=== PATIENT | female | born 1935 | race Two or more races ===

== ENCOUNTER → 2016-08-09 | Outpatient (CLI) | payer MEDICARE, OTHER ==
--- NOTE | 2016-08-09 11:04 | WOMENS IMAGING REPORT ---
EXAM DESCRIPTION: U/S ABDOMEN TOTAL COMPLETED DATE/TIME: 08/09/2016 10:30 am REASON FOR STUDY: OTHER ASCITES (R18.8) R18.8 OTHER ASCITES COMPARISON: 12/01/2010. TECHNIQUE: Dynamic and static grayscale images acquired of the abdomen and recorded on PACS. Additio nal selected color Doppler and spectral images recorded. LIMITATIONS: None. FINDINGS: PANCREAS: No masses. Visualized pancreatic duct normal caliber. LIVER: Echotexture is coarse with increased echogenicity consistent with fatty infiltration. LIVER VASCULATURE: Back and forth flow in the portal vein. GALLBLADDER: Gallstone(s). No pericholecystic fluid. Contracted gallbladder with gallbladder wall th ickening. ULTRASOUND-DETECTED GAXIOLA'S SIGN: Positive. INTRAHEPATIC DUCTS AND COMMON DUCT: CBD and intrahepatic ducts normal caliber. No filling defects. INFERIOR VENA CAVA: Normal flow. AORTA: No aneurysm. RIGHT KIDNEY: Normal size. Normal echogenicity. 1.2 cm cyst. No solid or suspicious masses. N o hydronephrosis. No calcifications. LEFT KIDNEY: Normal size. Normal echogenicity. No solid or suspicious masses. No hydronephrosi s. No calcifications. SPLEEN:Normal size. No solid masses. PERITONEAL AND PLEURAL SPACES: No ascites or effusions. OTHER: No other significant finding. TECHNICAL DOCUMENTATION: JOB ID: [id number] [employer]- All Rights Reserved
== END ==
LOC: WI 09:48
PROVIDERS: ATTEND Internal Medicine Nephrology
DX: R18.8 Other ascites (principal)
CPT/HCPCS: 76700

== ENCOUNTER → 2016-11-02 | Outpatient (CLI) | payer MEDICARE, OTHER ==
[2016-11-02 10:18] LABS: ANION GAP 16 (5-19); BLOOD UREA NITROGEN 91 mg/dL (7-20); CALCIUM 9.8 mg/dL (8.4-10.2); CARBON DIOXIDE 26 mmol/L (22-30); CHLORIDE 99 mmol/L (98-107); CREATININE RESULT 3.36 mg/dL (0.52-1.25); GLUCOSE 94 mg/dL (75-110); POTASSIUM 4.9 mmol/L (3.6-5.0); SODIUM 140.6 mmol/L (137-145)
== END ==
LOC: DAVITANR 09:20
PROVIDERS: ATTEND Internal Medicine Nephrology
DX: E87.5 Hyperkalemia (principal); N18.6 End stage renal disease
CPT/HCPCS: 80048

== ENCOUNTER → 2016-11-05 | Outpatient (CLI) | payer MEDICARE, OTHER ==
[2016-11-05 10:38] LABS: ANION GAP 18 (5-19); BLOOD UREA NITROGEN 118 mg/dL (7-20); CALCIUM 9.7 mg/dL (8.4-10.2); CARBON DIOXIDE 25 mmol/L (22-30); CHLORIDE 97 mmol/L (98-107); CREATININE RESULT 3.37 mg/dL (0.52-1.25); GLUCOSE 90 mg/dL (75-110); POTASSIUM 4.6 mmol/L (3.6-5.0); SODIUM 140.1 mmol/L (137-145)
== END ==
LOC: DAVITANR 09:37
PROVIDERS: ATTEND Internal Medicine Nephrology
DX: E87.5 Hyperkalemia (principal)
CPT/HCPCS: 80048

== ENCOUNTER → 2016-12-17 | Outpatient (CLI) | payer MEDICARE, OTHER ==
[2016-12-17 12:03] LABS: CHOLESTEROL 131.92 mg/dL (0-200); Direct HDL 62 mg/dL (>40); TRIGLYCERIDES 93 mg/dL (<150)
[2016-12-17 12:19] LABS: FREE T3 3.6 pg/mL (2.77-5.27)
[2016-12-17 12:20] LABS: DIRECT LDL < 30 mg/dL (<100)
[2016-12-17 12:33] LABS: THYROID STIMULATING HORMONE 3.93 uIU/mL (0.47-4.68)
== END ==
LOC: OD 11:02
PROVIDERS: ATTEND Internal Medicine Geriatric Medicine
DX: E11.65 Type 2 diabetes mellitus with hyperglycemia (principal)
CPT/HCPCS: 36415; 80061; 84439; 84443; 84481

== ENCOUNTER → 2017-02-25 | Outpatient (CLI) | payer MEDICARE, OTHER ==
[2017-02-25 11:27] LABS: ALANINE AMINOTRANSFERASE 34 U/L (9-52); ALBUMIN 3.9 g/dL (3.5-5.0); ALKALINE PHOSPHATASE 65 U/L (38-126); ANION GAP 13 (5-19); ASPARTATE AMINO TRANSFERASE 38 U/L (14-36); BILIRUBIN,DIRECT 0.4 mg/dL (0.0-0.4); BILIRUBIN,TOTAL 1.1 mg/dL (0.2-1.3); BLOOD UREA NITROGEN 114 mg/dL (7-20); CALCIUM 9.6 mg/dL (8.4-10.2); CARBON DIOXIDE 29 mmol/L (22-30); CHLORIDE 99 mmol/L (98-107); GLUCOSE 104 mg/dL (75-110); POTASSIUM 3.5 mmol/L (3.6-5.0); SODIUM 140.9 mmol/L (137-145); TOTAL PROTEIN 7.4 g/dL (6.3-8.2)
== END ==
LOC: OD 09:57
PROVIDERS: ATTEND Internal Medicine Geriatric Medicine
DX: N18.4 Chronic kidney disease, stage 4 (severe) (principal)
CPT/HCPCS: 36415; 80053

== ENCOUNTER 2017-03-27 15:44 | Emergency (ER) | payer MEDICARE, OTHER ==
--- NOTE | 2017-03-27 16:58 | RADIOLOGY REPORT (SQ) ---
EXAM DESCRIPTION: CHEST SINGLE VIEW COMPLETED DATE/TIME: 03/27/2017 4:44 pm REASON FOR STUDY: left chest swelling/sob COMPARISON: AP chest 11/20/2011, 07/06/2009 EXAM PARAMETERS: NUMBER OF VIEWS: One view. TECHNIQUE: Single frontal radiographic view of the chest acquired. RADIATION DOSE: NA LIMITATIONS: None. FINDINGS: LUNGS AND PLEURA: No opacities, masses or pneumothorax. No pleural effusion. MEDIASTINUM AND HILAR STRUCTURES: No masses. Contour normal. HEART AND VASCULAR STRUCTURES: Stable marked cardiomegaly BONES: No acute findings. HARDWARE: Old sternotomy and left sided pacemaker. Surgical clips left axilla. OTHER: No other significant finding. IMPRESSION: Stable cardiomegaly. No CT evidence of acute infiltrates, pleural effusion or pneumothorax TECHNICAL DOCUMENTATION: JOB ID: [id number]
[2017-03-27] MEDS ORDERED: ONDANSETRON HCL INJ/PF 4 MG/2 ML SDV IV ONE (17:14)
--- NOTE | 2017-03-27 17:14 | ER Document Report ---
ED General - General Mode of Arrival: Ambulatory Information source: Patient, Relative TRAVEL OUTSIDE OF THE [place]. IN LAST 30 DAYS: No - HPI Onset: Yesterday Onset/Duration: Gradual Quality of pain: Fullness, Pressure <ALEJANDRINA LINCOLN - Last Filed: 03/27/17 17:21> <KO NGUYEN - Last Filed: 03/27/17 22:38> - General Chief Complaint: Post Surgical Bleeding Stated Complaint: REDNESS, SWELLING AT SURGERY SITE Time Seen by Provider: 03/27/17 16:33 Notes: Patient is an 82-year-old female who presents to the emergency department today with complaints of left upper chest and left upper extremity swelling. Patient had the batteries in her pacemaker/defibrillator changed yesterday and the swelling began shortly after and has continued into today. Patient complains of left upper extremity pain today with the obvious swelling. (ALEJANDRINA LINCOLN) - Related Data Allergies/Adverse Reactions: clindamycin [Clindamycin] Allergy (Verified 03/27/17 16:25) codeine [Codeine] Allergy (Verified 03/27/17 16:25) diltiazem HCl [From Cardizem] Allergy (Verified 03/27/17 16:25) Penicillins Allergy (Verified 03/27/17 16:25) Sulfa (Sulfonamide Antibiotics) Allergy (Verified 03/27/17 16:25) Past Medical History - General Information source: Patient, Relative - Social History Smoking Status: Former Smoker Frequency of alcohol use: None Drug Abuse: None Lives with: Family Family History: Reviewed & Not Pertinent Patient has suicidal ideation: No Patient has homicidal ideation: No - Past Medical History Cardiac Medical History: Reports: Hx Atrial Fibrillation, Hx Congestive Heart Failure, Hx Heart Attack - 1994, Hx Hypercholesterolemia, Hx Hypertension - MEDS Pulmonary Medical History: Reports: Hx Asthma - LAST ATTACK 3MO Endocrine Medical History: Reports: Hx Diabetes Mellitus Type 2 Renal/ Medical History: Reports: Hx Peritoneal Dialysis GI Medical History: Reports: Hx Hiatal Hernia, Hx Ulcer - STOMACH Musculoskeltal Medical History: Reports Hx Arthritis Past Surgical History: Reports: Hx Cardiac Surgery - bypass, pacemaker/ defibulator, Hx Hysterectomy, Hx Open Heart Surgery - bypass 1994, Hx Pacemaker - Immunizations Hx Diphtheria, Pertussis, Tetanus Vaccination: Yes <ALEJANDRINA LINCOLN - Last Filed: 03/27/17 17:21> Review of Systems - Review of Systems Constitutional: No symptoms reported EENT: No symptoms reported Cardiovascular: No symptoms reported Respiratory: No symptoms reported Gastrointestinal: No symptoms reported Genitourinary: No symptoms reported Female Genitourinary: No symptoms reported Musculoskeletal: See HPI, Other - left arm and upper chest swelling, post surgical Skin: No symptoms reported Hematologic/Lymphatic: No symptoms reported Neurological/Psychological: No symptoms reported -: Yes All other systems reviewed and negative <ALEJANDRINA LINCOLN - Last Filed: 03/27/17 17:21> Physical Exam <ALEJANDRINA LINCOLN - Last Filed: 03/27/17 17:21> <KO NGUYEN - Last Filed: 03/27/17 22:38> - Vital signs Vitals: Temp Pulse Resp BP Pulse Ox 98.3 F 70 16 121/66 99 03/27/17 16:23 03/27/17 16:23 03/27/17 16:23 03/27/17 16:23 03/27/17 16:23 - Notes Notes: Physical Exam: General: Alert, appears well. HEENT: Normocephalic. Atraumatic. PERRL. Extraocular movements intact. Oropharynx clear. Neck: Supple. Non-tender. Respiratory: No respiratory distress. Clear and equal breath sounds bilaterally. Cardiovascular: Regular rate and rhythm. Abdominal: Normal Inspection. Non-tender. No distension. Normal Bowel Sounds. Back: Non-tender. No deformity or step off. Extremities: Moves all four extremities. Upper extremities: LUE is edematous but no there is no acute tenderness with palpation. Lower extremities: Normal inspection. No edema. Normal ROM. Neurological: Normal cognition. AAOx4. Normal speech. Psychological: Normal affect. Normal Mood. Skin: Fresh sutured incision, bulging upward 3cm above normal, tender with palpation in left upper chest. (ALEJANDRINA LINCOLN) Course - Laboratory Result Diagrams: 03/27/17 17:45 03/27/17 17:45 - Consults Dr. Amaya Consulted provider: follow-up in office - Dr. Amaya is the learning designer raymond mill operator for Dr. Hammer who did the procedure yesterday. He requests the patient come to the office tomorrow for follow-up and continue her Coumadin. <KO NGUYEN - Last Filed: 03/27/17 22:38> - Vital Signs Vital signs: Temp Pulse Resp BP Pulse Ox 98.3 F 70 28 H 112/70 96 03/27/17 16:23 03/27/17 16:23 03/27/17 22:16 03/27/17 22:01 03/27/17 22:16 - Laboratory Laboratory results interpreted by me: 03/27/17 03/27/17 03/27/17 17:45 17:45 17:45 RBC 3.19 L Hgb 11.4 L Hct 33.1 L MCV 104 H MCH 35.8 H Plt Count 80 L Monocytes % 17.9 H PT 19.5 H Sodium 135.6 L Chloride 96 L BUN 117 H Creatinine 3.41 H Est GFR ( Amer) 16 L Est GFR (Non-Af Amer) 13 L Glucose 145 H Direct Bilirubin 0.6 H Discharge <ALEJANDRINA LINCOLN - Last Filed: 03/27/17 17:21> <KO NGUYEN - Last Filed: 03/27/17 22:38> - Discharge Clinical Impression: Left upper extremity swelling Chest wall hematoma Qualifiers: Encounter type: initial encounter Laterality: left Qualified Code(s): S20.212A - Contusion of left front wall of thorax, initial encounter Condition: Stable Disposition: HOME, SELF-CARE Additional Instructions: There was no evidence of blood clots causing your arm swelling. The swelling of your pacemaker is probably due to bleeding around the pacemaker after the procedure. I discussed your case with Dr. Amaya who is covering for Dr. Harman flores. He requests that you continue taking your Coumadin and come to the office tomorrow for a follow-up appointment. Scribe Attestation: 03/27/17 22:38 I personally performed the services described in the documentation, reviewed and edited the documentation which was dictated to the scribe in my presence, and it accurately records my words and actions. (KO NGYUEN) Scribe Documentation - Scribe Written by Scribe:: Celeste Ng, 03/27/2017 [id number] acting as scribe for :: Jesus <ALEJANDRINA LINCOLN - Last Filed: 03/27/17 17:21>
[2017-03-27] MEDS ORDERED: FENTANYL CITRATE INJ/PF 100 MCG/2 ML AMPUL IV ONE ×2 (17:15→19:38)
[2017-03-27 18:24] LABS: PROTHROMBIN TIME 19.5 SEC (11.4-15.4)
[2017-03-27 18:31] LABS: ALANINE AMINOTRANSFERASE 19 U/L (9-52); ALBUMIN 3.8 g/dL (3.5-5.0); ALKALINE PHOSPHATASE 58 U/L (38-126); ANION GAP 14 (5-19); ASPARTATE AMINO TRANSFERASE 30 U/L (14-36); BILIRUBIN,DIRECT 0.6 mg/dL (0.0-0.4); CALCIUM 9.3 mg/dL (8.4-10.2); CARBON DIOXIDE 26 mmol/L (22-30); CHLORIDE 96 mmol/L (98-107); CREATININE RESULT 3.41 mg/dL (0.52-1.25); GLUCOSE 145 mg/dL (75-110); SODIUM 135.6 mmol/L (137-145); TOTAL PROTEIN 7.2 g/dL (6.3-8.2)
[2017-03-27 18:32] LABS: ABSOLUTE EOSINOPHILS # (AUTO) 0.1 10^3/uL (0.0-0.6); ABSOLUTE LYMPHOCYTES (AUTO) 1.1 10^3/uL (0.5-4.7); ABSOLUTE NEUT (AUTO) 3.3 10^3/uL (1.7-8.2); BASOPHILS % (AUTO) 0.9 % (0-2); EOSINOPHILS % (AUTO) 1.2 % (0-6); HEMATOCRIT 33.1 % (36.0-47.0); HEMOGLOBIN 11.4 g/dL (12.0-15.5); HGB HCT DIFFERENCE 1.1; LYMPHOCYTES % (AUTO) 19.5 % (13-45); MEAN CORPUSCULAR HEMOGLOBIN 35.8 pg (27.0-33.4); MEAN CORPUSCULAR HGB CONC 34.5 g/dL (32.0-36.0); MEAN CORPUSCULAR VOLUME 104 fl (80-97); MONOCYTES % (AUTO) 17.9 % (3-13); RED BLOOD COUNT 3.19 10^6/uL (3.72-5.28); RED CELL DISTRIBUTION WIDTH 12.1 % (11.5-14.0); SEGMENTED NEUTROPHILS % (AUTO) 60.5 % (42-78); WHITE BLOOD COUNT 5.4 10^3/uL (4.0-10.5)
[2017-03-27 18:38] LABS: BLOOD UREA NITROGEN 117 mg/dL (7-20)
[2017-03-27] MEDS ORDERED: FENTANYL 12 MCG/HR PATCH.TD72 TD ONE (23:12)
[2017-03-27 23:34] VITALS: BP 122/71
--- NOTE | 2017-03-28 10:47 | XCELERA REPORT ---
[address] [address] Upper Extremity Venous Evaluation Name: NANCY BIRMINGHAM Age: 82 yrs Gender: Female : 1935 Patient Status: Emergency Patient Location: ER Study Date: 03/27/2017 09:47 PM Procedure: Unilateral duplex scan of the left upper extremity veins was performed, including responses to compression and other maneuvers. Reason For Study: L arm swelling,coumadin held for pacemaker connor ch Ordering Physician: KO NGUYEN Performed By: William Portillo Left Sided Venous Evaluation Normal vessel filling wall to wall, compression and augmentation as well as Colour flow down to the forearm veins. Interpretation Summary No duplex evidence of DVT or obstruction in the left upper extremity. : KO NGUYEN > Tim Cummings
== END 2017-03-27 23:30 | disposition home or self-care (01) ==
LOC: ER 15:44
DX: S20.212A Contusion of left front wall of thorax, initial encounter (principal); R22.32 Localized swelling, mass and lump, left upper limb; X58.XXXA Exposure to other specified factors, initial encounter; I48.91 Unspecified atrial fibrillation; I50.9 Heart failure, unspecified; E78.00 Pure hypercholesterolemia, unspecified; I11.0 Hypertensive heart disease with heart failure; J45.909 Unspecified asthma, uncomplicated; E11.9 Type 2 diabetes mellitus without complications; Z88.3 Allergy status to other anti-infective agents; Z88.2 Allergy status to sulfonamides; Z88.0 Allergy status to penicillin; Z95.810 Presence of automatic (implantable) cardiac defibrillator; Z87.891 Personal history of nicotine dependence; Z90.710 Acquired absence of both cervix and uterus; Z79.02 Long term (current) use of antithrombotics/antiplatelets; I25.2 Old myocardial infarction
CPT/HCPCS: 96376; 99284; 96374; 96375; 36415; 85025; 85610; 80053; 93971 ×2; 71010; J3010; A9270; J2405; J3490

== ENCOUNTER 2018-01-10 09:53 | Outpatient (CLI) | payer MEDICARE, OTHER ==
[2018-01-10 10:54] LABS: INTERNATIONAL RATION (INR) 1.35; PROTHROMBIN TIME 17.4 SEC (11.4-15.4)
[2018-01-10] MEDS ORDERED: NORMAL SALINE IV PRN (11:48)
[2018-01-10] MEDS ORDERED: SODIUM THIOSULFATE IV PRN (11:48)
[2018-01-10] MEDS ORDERED: NORMAL SALINE 10 ML SDV (AFTER EACH USE) IV PRN (11:54)
[2018-01-10 12:00] VITALS: BP 142/51
[2018-01-10] MEDS ORDERED: NORMAL SALINE 10 ML SDV (SCHEDULED) IV SCH (22:00)
== END 2018-01-10 14:16 | disposition home or self-care (01) ==
LOC: II 09:53 → 5TH 10:12 → II 14:16
PROVIDERS: ATTEND Internal Medicine Nephrology
PROC: 3E033GC Introduction of Other Therapeutic Substance into Peripheral Vein, Percutaneous Approach (ICD-10-PCS; principal; 2018-01-10)
DX: Z76.89 Persons encountering health services in other specified circumstances (principal); Z51.81 Encounter for therapeutic drug level monitoring
CPT/HCPCS: 36415; 85610; 96367; 96375; 96376; J3490; J1642; 96365

== ENCOUNTER 2018-01-13 14:11 | Emergency (ER) | payer MEDICARE, OTHER ==
[2018-01-13 15:01] LABS: ABSOLUTE BASOPHILS # (AUTO) 0.1 10^3/uL (0.0-0.2); ABSOLUTE MONOCYTES (AUTO) 0.8 10^3/uL (0.1-1.4); ABSOLUTE NEUT (AUTO) 5.2 10^3/uL (1.7-8.2); BASOPHILS % (AUTO) 2.1 % (0-2); EOSINOPHILS % (AUTO) 0.4 % (0-6); HEMATOCRIT 27.4 % (36.0-47.0); HEMOGLOBIN 9.3 g/dL (12.0-15.5); MEAN CORPUSCULAR HEMOGLOBIN 34.3 pg (27.0-33.4); MEAN CORPUSCULAR VOLUME 101 fl (80-97); MONOCYTES % (AUTO) 10.9 % (3-13); PLATELET COUNT 104 10^3/uL (150-450); RED BLOOD COUNT 2.71 10^6/uL (3.72-5.28); RED CELL DISTRIBUTION WIDTH 14.1 % (11.5-14.0); SEGMENTED NEUTROPHILS % (AUTO) 72.6 % (42-78); TOTAL CELLS COUNTED % (AUTO) 100 %; WHITE BLOOD COUNT 7.1 10^3/uL (4.0-10.5)
[2018-01-13 15:07] LABS: VENOUS BLOOD HCO3 21.4 mmol/L (20-32); VENOUS BLOOD PCO2 36.5 mmHg (35-63); VENOUS BLOOD PH 7.39 (7.30-7.42)
[2018-01-13 15:23] LABS: ALANINE AMINOTRANSFERASE 25 U/L (9-52); ALBUMIN 3.9 g/dL (3.5-5.0); ALKALINE PHOSPHATASE 119 U/L (38-126); ASPARTATE AMINO TRANSFERASE 36 U/L (14-36); BILIRUBIN,DIRECT 0.9 mg/dL (0.0-0.4); BILIRUBIN,TOTAL 1.1 mg/dL (0.2-1.3); BLOOD UREA NITROGEN 89 mg/dL (7-20); CALCIUM 9.8 mg/dL (8.4-10.2); GLUCOSE 145 mg/dL (75-110); POTASSIUM 3.5 mmol/L (3.6-5.0); TOTAL PROTEIN 8.2 g/dL (6.3-8.2)
[2018-01-13 15:28] LABS: CARBON DIOXIDE 24 mmol/L (22-30); CHLORIDE 86 mmol/L (98-107); SODIUM 134.2 mmol/L (137-145)
[2018-01-13 15:31] LABS: ANION GAP 24 (5-19)
[2018-01-13] MEDS ORDERED: NORMAL SALINE 250 ML IV ONE (17:39)
[2018-01-13] MEDS ORDERED: HYDROMORPHONE HCL INJ/PF 2 MG/ML AMPULE IV ONE ×2 (17:39→20:40)
[2018-01-13 18:13] LABS: CREATINE KINASE MB 1.38 ng/mL (<4.55)
[2018-01-13 18:17] LABS: TROPONIN I 0.116 ng/mL
--- NOTE | 2018-01-13 18:50 | EKG REPORT ---
SEVERITY:- ABNORMAL ECG - VENTRICULAR-PACED COMPLEXES NONSPECIFIC INTRAVENTRICULAR CONDUCTION DELAY CONSIDER LEFT VENTRICULAR HYPERTROPHY NONSPECIFIC ST DEPRESSION, LATERAL LEADS : Confirmed by: Mimi Nassar 13-Jan-2018 18:49:34
--- NOTE | 2018-01-13 20:29 | ER Document Report ---
ED General - General Chief Complaint: Pain Stated Complaint: BODY PAIN Time Seen by Provider: 01/13/18 16:52 Mode of Arrival: Medic Information source: Patient Notes: 82-year-old female with congestive heart failure, end-stage renal disease, coronary artery disease, recent diagnosis of calciphylaxis presents with diffuse body pain, weakness, decreased urinary output and poor appetite. Family reports that the patient was discharged from [facility] approximately 2 weeks ago. She has been started on infusions of sodium thiosulfate for the treatment of calciphylaxis. Patient reports excruciating pain greater in her lower extremities but diffusely located. Patient states pain worsened today. Patient has associated nausea without vomiting. She does perform peritoneal dialysis. Patient has a PICC in the right upper extremity used for her infusions. Patient has Dilaudid and fentanyl patches at home for pain. She reports no relief of pain with these medications. TRAVEL OUTSIDE OF THE [place]. IN LAST 30 DAYS: No - HPI Onset: Other Onset/Duration: Constant, Persistent, Worse Quality of pain: Stabbing, Throbbing Severity: Severe Associated symptoms: Nausea, Weakness Exacerbated by: Movement Relieved by: Denies Similar symptoms previously: Yes Recently seen / treated by doctor: Yes - Related Data Allergies/Adverse Reactions: clindamycin [Clindamycin] Allergy (Verified 03/27/17 16:25) codeine [Codeine] Allergy (Verified 03/27/17 16:25) diltiazem HCl [From Cardizem] Allergy (Verified 03/27/17 16:25) Penicillins Allergy (Verified 03/27/17 16:25) Sulfa (Sulfonamide Antibiotics) Allergy (Verified 03/27/17 16:25) Past Medical History - General Information source: Patient, Relative, [facility] Records, Outside Facility Records - Social History Smoking Status: Never Smoker Chew tobacco use (# tins/day): No Drug Abuse: None Family History: Reviewed & Not Pertinent Patient has suicidal ideation: No Patient has homicidal ideation: No - Past Medical History Cardiac Medical History: Reports: Hx Atrial Fibrillation, Hx Congestive Heart Failure, Hx Heart Attack - 1994, Hx Hypercholesterolemia, Hx Hypertension - MEDS Pulmonary Medical History: Reports: Hx Asthma - LAST ATTACK 3MO Neurological Medical History: Denies: Hx Cerebrovascular Accident, Hx Seizures Endocrine Medical History: Reports: Hx Diabetes Mellitus Type 2 Renal/ Medical History: Reports: Hx Peritoneal Dialysis GI Medical History: Reports: Hx Hiatal Hernia, Hx Ulcer - STOMACH. Denies: Hx Hepatitis Musculoskeltal Medical History: Reports Hx Arthritis Infectious Medical History: Denies: Hx Hepatitis Past Surgical History: Reports: Hx Cardiac Surgery - bypass, pacemaker/ defibulator, Hx Hysterectomy, Hx Open Heart Surgery - bypass 1994, Hx Pacemaker. Denies: Hx Mastectomy - Immunizations Hx Diphtheria, Pertussis, Tetanus Vaccination: Yes Review of Systems - Review of Systems Constitutional: Malaise, Weakness EENT: denies: Blurred vision, Difficulty swallowing Cardiovascular: Chest pain, Dizziness Respiratory: denies: Short of breath Gastrointestinal: Abdominal pain, Nausea. denies: Diarrhea, Vomiting Genitourinary: denies: Dysuria Female Genitourinary: No symptoms reported Musculoskeletal: Muscle pain Skin: Change in color Hematologic/Lymphatic: Easy bleeding Neurological/Psychological: Weakness, Loss of power, Headaches -: Yes All other systems reviewed and negative Physical Exam - Vital signs Vitals: Temp Pulse Resp BP Pulse Ox 98.2 F 73 20 126/49 H 96 01/13/18 14:21 01/13/18 14:21 01/13/18 14:21 01/13/18 14:21 01/13/18 14:21 - Notes Notes: PHYSICAL EXAMINATION: GENERAL: Ill-appearing, appears to be in pain. HEAD: Atraumatic, normocephalic. EYES: Pupils equal round and reactive to light, extraocular movements intact, conjunctiva are normal. ENT: Nares patent, oropharynx clear without exudates. Moist mucous membranes. NECK: Normal range of motion, supple without lymphadenopathy LUNGS: Breath sounds clear to auscultation bilaterally and equal. No wheezes rales or rhonchi. HEART: Regular rate and rhythm without murmurs ABDOMEN: Soft, diffuse tenderness. No guarding, no rebound. No masses appreciated. Peritoneal dialysis catheter in place. Female : deferred Musculoskeletal: Normal range of motion, no pitting or edema. No cyanosis. NEUROLOGICAL: Cranial nerves grossly intact. Normal speech, normal gait. Normal sensory, motor exams PSYCH: Normal mood, normal affect. SKIN: Areas of black tissue on her lower extremities. Course - Re-evaluation Re-evalutation: Laboratory 01/13/18 01/13/18 01/13/18 14:40 14:40 14:40 WBC 7.1 RBC 2.71 L Hgb 9.3 L Hct 27.4 L MCV 101 H MCH 34.3 H MCHC 34.0 RDW 14.1 H Plt Count 104 L Seg Neutrophils % 72.6 Lymphocytes % 14.0 Monocytes % 10.9 Eosinophils % 0.4 Basophils % 2.1 H Absolute Neutrophils 5.2 Absolute Lymphocytes 1.0 Absolute Monocytes 0.8 Absolute Eosinophils 0.0 Absolute Basophils 0.1 VBG pH VBG pCO2 VBG HCO3 VBG Base Excess Sodium 134.2 L Potassium 3.5 L Chloride 86 L Carbon Dioxide 24 Anion Gap 24 H BUN 89 H Creatinine 7.96 H Est GFR ( Amer) 6 L Est GFR (Non-Af Amer) 5 L Glucose 145 H Lactic Acid 2.9 H Calcium 9.8 Total Bilirubin 1.1 Direct Bilirubin 0.9 H Neonat Total Bilirubin Not Reportable Neonat Direct Bilirubin Not Reportable Neonat Indirect Bili Not Reportable AST 36 ALT 25 Alkaline Phosphatase 119 Creatine Kinase CK-MB (CK-2) Troponin I Total Protein 8.2 Albumin 3.9 01/13/18 01/13/18 01/13/18 14:40 14:40 14:40 WBC RBC Hgb Hct MCV MCH MCHC RDW Plt Count Seg Neutrophils % Lymphocytes % Monocytes % Eosinophils % Basophils % Absolute Neutrophils Absolute Lymphocytes Absolute Monocytes Absolute Eosinophils Absolute Basophils VBG pH 7.39 VBG pCO2 36.5 VBG HCO3 21.4 VBG Base Excess -3.0 Sodium Potassium Chloride Carbon Dioxide Anion Gap BUN Creatinine Est GFR ( Amer) Est GFR (Non-Af Amer) Glucose Lactic Acid Calcium Total Bilirubin Direct Bilirubin Neonat Total Bilirubin Neonat Direct Bilirubin Neonat Indirect Bili AST ALT Alkaline Phosphatase Creatine Kinase 47 CK-MB (CK-2) 1.38 Troponin I 0.116 Total Protein Albumin 01/13/18 01/13/18 18:58 18:58 WBC RBC Hgb Hct MCV MCH MCHC RDW Plt Count Seg Neutrophils % Lymphocytes % Monocytes % Eosinophils % Basophils % Absolute Neutrophils Absolute Lymphocytes Absolute Monocytes Absolute Eosinophils Absolute Basophils VBG pH VBG pCO2 VBG HCO3 VBG Base Excess Sodium Potassium Chloride Carbon Dioxide Anion Gap BUN Creatinine Est GFR ( Amer) Est GFR (Non-Af Amer) Glucose Lactic Acid 1.5 Calcium Total Bilirubin Direct Bilirubin Neonat Total Bilirubin Neonat Direct Bilirubin Neonat Indirect Bili AST ALT Alkaline Phosphatase Creatine Kinase CK-MB (CK-2) Troponin I 0.117 Total Protein Albumin 82-year-old female with congestive heart failure, end-stage renal disease, coronary artery disease, recent diagnosis of calciphylaxis presents with diffuse body pain, weakness, decreased urinary output and poor appetite. Family reports that the patient was discharged from [facility] approximately 2 weeks ago. She has been started on infusions of sodium thiosulfate for the treatment of calciphylaxis. Patient reports excruciating pain greater in her lower extremities but diffusely located. Patient states pain worsened today. Patient has associated nausea without vomiting. She does perform peritoneal dialysis. Patient has a PICC in the right upper extremity used for her infusions. Patient has Dilaudid and fentanyl patches at home for pain. She reports no relief of pain with these medications. Upon arrival vital signs reviewed. Patient appears ill but not toxic. She does appear to be in significant amount of pain. She did receive multiple doses of Dilaudid during her ED course. CBC shows no leukocytosis but does show anemia which seems to be the patient's baseline. CMP consistent with end-stage renal disease. Patient does have an elevated troponin likely elevated secondary to end-stage renal disease. I have no recent labs containing a troponin to compare to at this time. She reports no significant chest pain. Patient's initial lactate was 2.9 now 1.5 after receiving only 500 cc of IV fluids. Patient did perform peritoneal dialysis during her ED course. Patient and family agreeable to transfer back to [facility]. I did speak to the hospitalist who states that this is often a complicated and difficult disease to treat. Patient has remained stable throughout her ED course. 01/13/18 20:24 Spoke to the patient's primary care physician Dr. Villalba who recommends transfer to [facility]. 01/13/18 20:40 [facility] contacted for transfer. 01/13/18 21:05 Patient accepted for admission by Dr. Ballard at [facility]. 01/14/18 01:10 01/14/18 01:13 01/14/18 01:15 01/14/18 01:18 - Vital Signs Vital signs: Temp Pulse Resp BP Pulse Ox 98.6 F 73 10 L 111/76 97 01/13/18 17:03 01/13/18 14:21 01/14/18 00:01 01/14/18 00:01 01/14/18 00:01 - Laboratory Result Diagrams: 01/13/18 14:40 01/13/18 14:40 Laboratory results interpreted by me: 01/13/18 01/13/18 01/13/18 14:40 14:40 14:40 RBC 2.71 L Hgb 9.3 L Hct 27.4 L MCV 101 H MCH 34.3 H RDW 14.1 H Plt Count 104 L Basophils % 2.1 H Sodium 134.2 L Potassium 3.5 L Chloride 86 L Anion Gap 24 H BUN 89 H Creatinine 7.96 H Est GFR ( Amer) 6 L Est GFR (Non-Af Amer) 5 L Glucose 145 H Lactic Acid 2.9 H Direct Bilirubin 0.9 H - Diagnostic Test Radiology reviewed: Reports reviewed Discharge - Discharge Clinical Impression: Calciphylaxis, Total body pain, Muscle weakness (generalized), End stage renal disease, Elevated troponin Condition: Fair Disposition: [facility] Referrals: JUNO VILLALBA MD [Primary Care Provider] - Follow up as needed
[2018-01-14] MEDS: HYDROMORPHONE HCL INJ/PF 2 MG/ML AMPULE IV PRN ×2 (00:53→09:54)
[2018-01-14 01:50] LABS: APPEARANCE,URINE SLIGHTLY-CLOUDY; BILIRUBIN,URINE NEGATIVE (NEGATIVE); COLOR,URINE DARK YELLOW; GLUCOSE, URINE NEGATIVE (NEGATIVE); KETONES,URINE NEGATIVE (NEGATIVE); LEUKOCYTE ESTERASE,URINE LARGE (NEGATIVE); NITRITE,URINE NEGATIVE (NEGATIVE); PROTEIN,URINE NEGATIVE (NEGATIVE); URINE SPECIFIC GRAVITY 1.015; UROBILINOGEN,URINE NEGATIVE mg/dL (<2.0)
[2018-01-14] MEDS ORDERED: CIPROFLOXACIN 400 MG/D5W RTU 400 MG/200 ML RTUPB IV ONE (04:55)
--- NOTE | 2018-01-14 09:29 | ER Document Report ---
Doctor's Note Notes: 01/14/18 09:28 I reviewed the labs, orders, vital signs and have evaluated the patient. Currently, she is alert and will be trying to eat soon. She is currently hemodynamically stable. Will add a urine culture. She was started on oral antibiotics for UTI. We are waiting transfer to [facility]
[2018-01-14 11:05] LABS: PARTIAL THROMBOPLASTIN TIME 46.7 SEC (23.5-35.8)
[2018-01-14 11:11] LABS: INTERNATIONAL RATION (INR) 2.32
[2018-01-14 11:14] LABS: PROTHROMBIN TIME 26.6 SEC (11.4-15.4)
[2018-01-14] MEDS ORDERED: FENTANYL CITRATE INJ/PF 100 MCG/2 ML AMPUL IV ONE (12:20)
[2018-01-14 12:57] VITALS: BP 129/88
--- NOTE | 2018-01-14 13:07 | ER Document Report ---
Doctor's Note Notes: 01/14/18 13:07 [facility] is available. Patient stable for transport at this time.
== END 2018-01-14 13:15 | disposition short-term general hospital (02) ==
LOC: ER 14:11
DX: I13.2 Hypertensive heart and chronic kidney disease with heart failure and with stage 5 chronic kidney disease, or end stage renal disease (principal); E11.22 Type 2 diabetes mellitus with diabetic chronic kidney disease; N18.6 End stage renal disease; I50.9 Heart failure, unspecified; Z99.2 Dependence on renal dialysis; E83.59 Other disorders of calcium metabolism; N39.0 Urinary tract infection, site not specified; M79.1 Myalgia; R10.9 Unspecified abdominal pain; D64.9 Anemia, unspecified; R51 Headache; R53.1 Weakness; R74.8 Abnormal levels of other serum enzymes; I25.10 Atherosclerotic heart disease of native coronary artery without angina pectoris; R07.9 Chest pain, unspecified; R63.0 Anorexia; L98.8 Other specified disorders of the skin and subcutaneous tissue; R11.0 Nausea; J45.909 Unspecified asthma, uncomplicated; Z88.1 Allergy status to other antibiotic agents; Z88.5 Allergy status to narcotic agent; Z88.8 Allergy status to other drugs, medicaments and biological substances; Z88.0 Allergy status to penicillin; Z88.2 Allergy status to sulfonamides; Z95.1 Presence of aortocoronary bypass graft; Z95.810 Presence of automatic (implantable) cardiac defibrillator
CPT/HCPCS: 93005; 96376; 99285; 96361; 51702; 96375; 96365; 36415; 87040; 87086; 82553; 82550; 85025; 85610; 85730; 87088; 80053; 81001; 84484; 87186; 82803; 83605; 93010; 94660; 90935; J3010; J1170 ×2; J7050; J0744; 90947

== ENCOUNTER 2018-01-30 10:09 | Outpatient (CLI) | payer MEDICARE, OTHER ==
[2018-01-30] MEDS ORDERED: SODIUM THIOSULFATE IV PRN (10:25)
[2018-01-30] MEDS ORDERED: NORMAL SALINE IV PRN (10:25)
[2018-01-30 10:31] VITALS: BP 146/42
[2018-01-30] MEDS ORDERED: NORMAL SALINE 10 ML SDV (AFTER EACH USE) IV PRN (11:45)
[2018-01-30] MEDS ORDERED: NORMAL SALINE 10 ML SDV (SCHEDULED) IV SCH (22:00)
== END 2018-01-30 12:54 | disposition home or self-care (01) ==
LOC: II 10:09 → 5TH 10:12 → II 12:54
PROVIDERS: ATTEND Internal Medicine Nephrology
PROC: 3E033GC Introduction of Other Therapeutic Substance into Peripheral Vein, Percutaneous Approach (ICD-10-PCS; principal; 2018-01-30)
DX: E83.59 Other disorders of calcium metabolism (principal); L29.9 Pruritus, unspecified; R11.0 Nausea
CPT/HCPCS: 96365; J3490; J1642; 96367

== ENCOUNTER 2018-02-04 10:00 | Outpatient (CLI) | payer MEDICARE, OTHER ==
[2018-02-04 10:38] VITALS: BP 142/63
[2018-02-04] MEDS ORDERED: NORMAL SALINE IV PRN (10:41)
[2018-02-04] MEDS ORDERED: SODIUM THIOSULFATE IV PRN (10:41)
[2018-02-04] MEDS ORDERED: NORMAL SALINE 10 ML SDV (AFTER EACH USE) IV PRN (10:43)
[2018-02-04] MEDS ORDERED: ONDANSETRON HCL INJ/PF 4 MG/2 ML SDV IV PRN (10:46)
[2018-02-04] MEDS ORDERED: DIPHENHYDRAMINE HCL 50 MG/ML VIAL ONE (10:47)
[2018-02-04] MEDS ORDERED: ONDANSETRON HCL INJ/PF 4 MG/2 ML SDV ONE (10:47)
[2018-02-04] MEDS ORDERED: DIPHENHYDRAMINE HCL 50 MG/ML VIAL IV ONE (11:00)
[2018-02-04] MEDS ORDERED: NORMAL SALINE 10 ML SDV (SCHEDULED) IV SCH (22:00)
== END 2018-02-04 13:15 | disposition home or self-care (01) ==
LOC: II 10:00 → 5TH 10:13 → II 13:15
PROVIDERS: ATTEND Internal Medicine Nephrology
PROC: 3E043GC Introduction of Other Therapeutic Substance into Central Vein, Percutaneous Approach (ICD-10-PCS; principal; 2018-02-04)
DX: Z76.89 Persons encountering health services in other specified circumstances (principal)
CPT/HCPCS: 96365; 96367; 96375; J1200; J1642; J2405; J3490

== ENCOUNTER 2018-02-06 10:03 | Outpatient (CLI) | payer MEDICARE, OTHER ==
[2018-02-06] MEDS ORDERED: NORMAL SALINE IV PRN (10:16)
[2018-02-06] MEDS ORDERED: SODIUM THIOSULFATE IV PRN (10:16)
[2018-02-06] MEDS ORDERED: ONDANSETRON HCL INJ/PF 4 MG/2 ML SDV IV PRN (10:41)
[2018-02-06] MEDS ORDERED: DIPHENHYDRAMINE HCL 50 MG/ML VIAL IV PRN (10:42)
[2018-02-06] MEDS ORDERED: NORMAL SALINE 10 ML SDV (AFTER EACH USE) IV PRN (10:43)
[2018-02-06 11:16] VITALS: BP 141/61
[2018-02-06] MEDS ORDERED: NORMAL SALINE 10 ML SDV (SCHEDULED) IV SCH (22:00)
== END 2018-02-06 12:01 | disposition home or self-care (01) ==
LOC: II 10:03 → 5TH 10:08 → II 12:01
PROVIDERS: ATTEND Internal Medicine Nephrology
PROC: 3E033GC Introduction of Other Therapeutic Substance into Peripheral Vein, Percutaneous Approach (ICD-10-PCS; principal; 2018-02-06)
DX: N18.5 Chronic kidney disease, stage 5 (principal); E83.59 Other disorders of calcium metabolism; N25.0 Renal osteodystrophy
CPT/HCPCS: 96365; 96375; J1200; J2405; J3490; J1642; 96367

== ENCOUNTER 2018-02-07 12:20 | Outpatient (CLI) | payer MEDICARE, OTHER ==
[~2018-02-07 12:20] MED LIST: ONDANSETRON HCL INJ/PF 4 MG/2 ML SDV IV PRN
[2018-02-07] MEDS ORDERED: DIPHENHYDRAMINE HCL 50 MG/ML VIAL IV PRN (12:21)
[2018-02-07] MEDS ORDERED: SODIUM THIOSULFATE IV PRN (12:22)
[2018-02-07] MEDS ORDERED: NORMAL SALINE IV PRN (12:22)
[2018-02-07] MEDS ORDERED: NORMAL SALINE 10 ML SDV (AFTER EACH USE) IV PRN (12:58)
[2018-02-07 13:16] VITALS: BP 130/60
[2018-02-07] MEDS ORDERED: NORMAL SALINE 10 ML SDV (SCHEDULED) IV SCH (22:00)
== END 2018-02-07 14:35 | disposition home or self-care (01) ==
LOC: II 12:20 → 5TH 12:45 → II 14:35
PROVIDERS: ATTEND Internal Medicine Nephrology
PROC: 3E043GC Introduction of Other Therapeutic Substance into Central Vein, Percutaneous Approach (ICD-10-PCS; principal; 2018-02-07)
DX: N18.5 Chronic kidney disease, stage 5 (principal); E83.59 Other disorders of calcium metabolism; N25.0 Renal osteodystrophy
CPT/HCPCS: 96367; 96375; J1200; J2405; J3490; J1642; 96365

== ENCOUNTER 2018-02-11 09:51 | Outpatient (CLI) | payer MEDICARE, OTHER ==
[2018-02-11] MEDS ORDERED: SODIUM THIOSULFATE IV PRN (10:08)
[2018-02-11] MEDS ORDERED: NORMAL SALINE IV PRN (10:08)
[2018-02-11] MEDS ORDERED: ONDANSETRON HCL INJ/PF 4 MG/2 ML SDV IV PRN (10:09)
[2018-02-11] MEDS ORDERED: DIPHENHYDRAMINE HCL 50 MG/ML VIAL IV PRN (10:11)
[2018-02-11] MEDS ORDERED: NORMAL SALINE 10 ML SDV (AFTER EACH USE) IV PRN (10:17)
[2018-02-11 10:59] VITALS: BP 120/59
[2018-02-11] MEDS ORDERED: NORMAL SALINE 10 ML SDV (SCHEDULED) IV SCH (22:00)
== END 2018-02-11 12:39 | disposition home or self-care (01) ==
LOC: II 09:51 → 5TH 09:54 → II 12:39
PROVIDERS: ATTEND Internal Medicine Nephrology
PROC: 3E043GC Introduction of Other Therapeutic Substance into Central Vein, Percutaneous Approach (ICD-10-PCS; principal; 2018-02-11)
DX: N18.5 Chronic kidney disease, stage 5 (principal); E83.59 Other disorders of calcium metabolism; N25.0 Renal osteodystrophy
CPT/HCPCS: 96413; 96374; 96375; 96376; J1200; J2405; J3490; J1642; 96365

== ENCOUNTER 2018-02-13 10:05 | Outpatient (CLI) | payer MEDICARE, OTHER ==
[~2018-02-13 10:05] MED LIST changes: +DIPHENHYDRAMINE HCL 50 MG/ML VIAL IV PRN; +NORMAL SALINE IV PRN; +SODIUM THIOSULFATE IV PRN
[2018-02-13] MEDS ORDERED: NORMAL SALINE IV PRN (10:15)
[2018-02-13] MEDS ORDERED: SODIUM THIOSULFATE IV PRN (10:15)
[2018-02-13 10:27] VITALS: BP 134/56
[2018-02-13] MEDS ORDERED: NORMAL SALINE 10 ML SDV (AFTER EACH USE) IV PRN (10:57)
[2018-02-13] MEDS ORDERED: NORMAL SALINE 10 ML SDV (SCHEDULED) IV SCH (22:00)
== END 2018-02-13 11:51 | disposition home or self-care (01) ==
LOC: II 10:05 → 5TH 10:21 → II 11:51
PROVIDERS: ATTEND Internal Medicine Nephrology
PROC: 3E033GC Introduction of Other Therapeutic Substance into Peripheral Vein, Percutaneous Approach (ICD-10-PCS; principal; 2018-02-13)
DX: N18.5 Chronic kidney disease, stage 5 (principal); E83.59 Other disorders of calcium metabolism; N25.0 Renal osteodystrophy
CPT/HCPCS: 96365; 96375; J1200; J2405; J3490; J1642; 96367

== ENCOUNTER 2018-02-14 10:08 | Outpatient (CLI) | payer MEDICARE, OTHER ==
[2018-02-14 10:28] VITALS: BP 134/67
[2018-02-14] MEDS ORDERED: NORMAL SALINE 10 ML SDV (AFTER EACH USE) IV PRN (10:34)
[2018-02-14] MEDS ORDERED: NORMAL SALINE 10 ML SDV (SCHEDULED) IV SCH (22:00)
== END 2018-02-14 12:01 | disposition home or self-care (01) ==
LOC: II 10:08 → 5TH 10:09 → II 12:01
PROVIDERS: ATTEND Internal Medicine Nephrology
PROC: 3E033GC Introduction of Other Therapeutic Substance into Peripheral Vein, Percutaneous Approach (ICD-10-PCS; principal; 2018-02-14)
DX: N18.5 Chronic kidney disease, stage 5 (principal); E83.59 Other disorders of calcium metabolism; N25.0 Renal osteodystrophy
CPT/HCPCS: 96365; 96375; J1200; J2405; J3490; J1642; 96367

== ENCOUNTER 2018-02-18 09:58 | Outpatient (CLI) | payer MEDICARE, OTHER ==
[2018-02-18] MEDS ORDERED: NORMAL SALINE 10 ML SDV (AFTER EACH USE) IV PRN (10:21)
[2018-02-18 10:45] VITALS: BP 127/49
[2018-02-18] MEDS ORDERED: NORMAL SALINE 10 ML SDV (SCHEDULED) IV SCH (22:00)
== END 2018-02-18 12:55 | disposition home or self-care (01) ==
LOC: II 09:58 → 5TH 10:06 → II 12:55
PROVIDERS: ATTEND Internal Medicine Nephrology
PROC: 3E033GC Introduction of Other Therapeutic Substance into Peripheral Vein, Percutaneous Approach (ICD-10-PCS; principal; 2018-02-18)
DX: E83.59 Other disorders of calcium metabolism (principal); L29.9 Pruritus, unspecified; R11.0 Nausea
CPT/HCPCS: 96365; 96375; J1200; J2405; J3490; J1642; 96367

== ENCOUNTER 2018-02-20 10:08 | Outpatient (CLI) | payer MEDICARE, OTHER ==
[2018-02-20 10:30] VITALS: BP 140/54
[2018-02-20] MEDS ORDERED: NORMAL SALINE 10 ML SDV (AFTER EACH USE) IV PRN (10:43)
[2018-02-20] MEDS ORDERED: NORMAL SALINE 10 ML SDV (SCHEDULED) IV SCH (22:00)
== END 2018-02-20 12:15 | disposition home or self-care (01) ==
LOC: II 10:08 → 5TH 10:10 → II 12:15
PROVIDERS: ATTEND Internal Medicine
PROC: 3E043GC Introduction of Other Therapeutic Substance into Central Vein, Percutaneous Approach (ICD-10-PCS; principal; 2018-02-20)
DX: Z76.89 Persons encountering health services in other specified circumstances (principal)
CPT/HCPCS: 85025; 96365; 96375; J1200; J2405; J3490; J1642; 96374; 96413

== ENCOUNTER 2018-02-21 10:08 | Outpatient (CLI) | payer MEDICARE, OTHER ==
[2018-02-21] MEDS ORDERED: NORMAL SALINE 10 ML SDV (AFTER EACH USE) IV PRN (10:27)
[2018-02-21 10:34] VITALS: BP 147/53
[2018-02-21] MEDS ORDERED: NORMAL SALINE 10 ML SDV (SCHEDULED) IV SCH (22:00)
== END 2018-02-21 12:02 | disposition home or self-care (01) ==
LOC: II 10:08 → 5TH 10:16 → II 12:02
PROVIDERS: ATTEND Internal Medicine Nephrology
PROC: 3E033GC Introduction of Other Therapeutic Substance into Peripheral Vein, Percutaneous Approach (ICD-10-PCS; principal; 2018-02-21)
DX: Z76.89 Persons encountering health services in other specified circumstances (principal)
CPT/HCPCS: 96365; 96375; J1200; J2405; J3490; J1642; 96367

== ENCOUNTER 2018-02-25 09:58 | Outpatient (CLI) | payer MEDICARE, OTHER ==
[2018-02-25 10:16] VITALS: BP 149/60
[2018-02-25] MEDS ORDERED: NORMAL SALINE 10 ML SDV (AFTER EACH USE) IV PRN (10:45)
[2018-02-25] MEDS ORDERED: NORMAL SALINE 10 ML SDV (SCHEDULED) IV SCH (22:00)
== END 2018-02-25 12:21 | disposition home or self-care (01) ==
LOC: II 09:58 → 5TH 10:04 → II 12:21
PROVIDERS: ATTEND Internal Medicine Nephrology
PROC: 3E043GC Introduction of Other Therapeutic Substance into Central Vein, Percutaneous Approach (ICD-10-PCS; principal; 2018-02-25)
DX: Z76.89 Persons encountering health services in other specified circumstances (principal)
CPT/HCPCS: 96367; 96375; J1200; J2405; J3490; J1642; 96365

== ENCOUNTER 2018-02-27 10:08 | Outpatient (CLI) | payer MEDICARE, OTHER ==
[2018-02-27 10:25] VITALS: BP 149/58
[2018-02-27] MEDS ORDERED: NORMAL SALINE 10 ML SDV (AFTER EACH USE) IV PRN (10:29)
[2018-02-27] MEDS ORDERED: NORMAL SALINE 10 ML SDV (SCHEDULED) IV SCH (11:02)
== END 2018-02-27 12:52 | disposition home or self-care (01) ==
LOC: II 10:08 → 5TH 10:14 → II 12:52
PROVIDERS: ATTEND Internal Medicine Nephrology
PROC: 3E033GC Introduction of Other Therapeutic Substance into Peripheral Vein, Percutaneous Approach (ICD-10-PCS; principal; 2018-02-27)
DX: E83.59 Other disorders of calcium metabolism (principal); L29.9 Pruritus, unspecified; R11.0 Nausea
CPT/HCPCS: 96365; 96375; J1200; J2405; J3490; J1642; 96367

== ENCOUNTER 2018-02-28 10:06 | Outpatient (CLI) | payer MEDICARE, OTHER ==
[2018-02-28 10:18] VITALS: BP 137/64
[2018-02-28] MEDS ORDERED: NORMAL SALINE 10 ML SDV (AFTER EACH USE) IV PRN (10:18)
[2018-02-28] MEDS ORDERED: NORMAL SALINE 10 ML SDV (SCHEDULED) IV SCH (22:00)
== END 2018-02-28 11:34 | disposition home or self-care (01) ==
LOC: II 10:06 → 5TH 10:18 → II 11:34
PROVIDERS: ATTEND Internal Medicine Nephrology
PROC: 3E043GC Introduction of Other Therapeutic Substance into Central Vein, Percutaneous Approach (ICD-10-PCS; principal; 2018-02-28)
DX: E83.59 Other disorders of calcium metabolism (principal); L29.9 Pruritus, unspecified; R11.0 Nausea
CPT/HCPCS: 96365; 96375; J1200; J2405; J3490; J1642; 96374; 96413

== ENCOUNTER 2018-03-04 09:56 | Outpatient (CLI) | payer MEDICARE, OTHER ==
[2018-03-04] MEDS ORDERED: DIPHENHYDRAMINE HCL 50 MG/ML VIAL IV PRN (10:10)
[2018-03-04] MEDS ORDERED: ONDANSETRON HCL INJ/PF 4 MG/2 ML SDV IV PRN (10:10)
[2018-03-04] MEDS ORDERED: NORMAL SALINE IV PRN (10:11)
[2018-03-04] MEDS ORDERED: SODIUM THIOSULFATE IV PRN (10:11)
[2018-03-04] MEDS ORDERED: NORMAL SALINE 10 ML SDV (AFTER EACH USE) IV PRN (10:22)
[2018-03-04 10:36] VITALS: BP 137/57
[2018-03-04] MEDS ORDERED: NORMAL SALINE 10 ML SDV (SCHEDULED) IV SCH (22:00)
== END 2018-03-04 12:20 | disposition home or self-care (01) ==
LOC: II 09:56 → 5TH 10:10 → II 12:20
PROVIDERS: ATTEND Internal Medicine Nephrology
PROC: 3E043GC Introduction of Other Therapeutic Substance into Central Vein, Percutaneous Approach (ICD-10-PCS; principal; 2018-03-04)
DX: L29.9 Pruritus, unspecified (principal); R11.0 Nausea; E83.59 Other disorders of calcium metabolism
CPT/HCPCS: 96365; 96375; J1200; J2405; J3490; J1642; 96374; 96413

== ENCOUNTER 2018-03-06 10:20 | Outpatient (CLI) | payer MEDICARE, OTHER ==
[2018-03-06] MEDS ORDERED: NORMAL SALINE 10 ML SDV (AFTER EACH USE) IV PRN (10:36)
[2018-03-06] MEDS ORDERED: ONDANSETRON HCL INJ/PF 4 MG/2 ML SDV IV PRN (10:43)
[2018-03-06] MEDS ORDERED: DIPHENHYDRAMINE HCL 50 MG/ML VIAL IV PRN ×2 (10:43→11:00)
[2018-03-06] MEDS ORDERED: NORMAL SALINE IV PRN (10:48)
[2018-03-06] MEDS ORDERED: SODIUM THIOSULFATE IV PRN (10:48)
[2018-03-06 10:49] VITALS: BP 163/60
[2018-03-06] MEDS ORDERED: NORMAL SALINE 10 ML SDV (SCHEDULED) IV SCH (22:00)
== END 2018-03-06 12:32 | disposition home or self-care (01) ==
LOC: II 10:20 → 5TH 10:26 → II 12:32
PROVIDERS: ATTEND Internal Medicine Nephrology
PROC: 3E033GC Introduction of Other Therapeutic Substance into Peripheral Vein, Percutaneous Approach (ICD-10-PCS; principal; 2018-03-06)
DX: L29.9 Pruritus, unspecified (principal); R11.0 Nausea; E83.59 Other disorders of calcium metabolism
CPT/HCPCS: 96365; 96375; J1200; J2405; J3490; J1642; 96367

== ENCOUNTER 2018-03-07 09:59 | Outpatient (CLI) | payer MEDICARE, OTHER ==
[2018-03-07] MEDS ORDERED: ONDANSETRON HCL INJ/PF 4 MG/2 ML SDV IV PRN (10:08)
[2018-03-07] MEDS ORDERED: DIPHENHYDRAMINE HCL 50 MG/ML VIAL IV PRN (10:10)
[2018-03-07] MEDS ORDERED: SODIUM THIOSULFATE IV PRN (10:13)
[2018-03-07] MEDS ORDERED: NORMAL SALINE IV PRN (10:13)
[2018-03-07] MEDS ORDERED: NORMAL SALINE 10 ML SDV (AFTER EACH USE) IV PRN (10:18)
[2018-03-07 10:25] VITALS: BP 145/55
[2018-03-07] MEDS ORDERED: NORMAL SALINE 10 ML SDV (SCHEDULED) IV SCH (22:00)
== END 2018-03-07 13:04 | disposition home or self-care (01) ==
LOC: II 09:59 → 5TH 10:11 → II 13:04
PROVIDERS: ATTEND Internal Medicine Nephrology
PROC: 3E033GC Introduction of Other Therapeutic Substance into Peripheral Vein, Percutaneous Approach (ICD-10-PCS; principal; 2018-03-07)
DX: Z76.89 Persons encountering health services in other specified circumstances (principal)
CPT/HCPCS: 36415; 84132; 96365; 96375; J1200; J2405; J3490; J1642; 96367

== ENCOUNTER 2018-03-07 15:52 | Inpatient (IN) | payer MEDICARE ==
--- NOTE | 2018-03-07 16:07 | ER Document Report ---
ED Medical Screen (RME) - General Chief Complaint: Abdominal Pain Stated Complaint: ABDOMINAL PAIN Time Seen by Provider: 03/07/18 16:03 Mode of Arrival: Wheelchair Information source: Patient, Relative TRAVEL OUTSIDE OF THE [place]. IN LAST 30 DAYS: No - HPI Patient complains to provider of: peritonitis Onset: Just prior to arrival - pt.is PD pt sent here from [facility] for cloudy peritoneal fluiud -- possible peritonitis - Related Data Allergies/Adverse Reactions: clindamycin [Clindamycin] Allergy (Verified 03/27/17 16:25) codeine [Codeine] Allergy (Verified 03/27/17 16:25) diltiazem HCl [From Cardizem] Allergy (Verified 03/27/17 16:25) Penicillins Allergy (Verified 03/27/17 16:25) Sulfa (Sulfonamide Antibiotics) Allergy (Verified 03/27/17 16:25) Past Medical History - Past Medical History Cardiac Medical History: Reports: Hx Atrial Fibrillation, Hx Congestive Heart Failure, Hx Heart Attack - 1994, Hx Hypercholesterolemia, Hx Hypertension - MEDS Pulmonary Medical History: Reports: Hx Asthma - LAST ATTACK 3MO Neurological Medical History: Denies: Hx Cerebrovascular Accident, Hx Seizures Endocrine Medical History: Reports: Hx Diabetes Mellitus Type 2 Renal/ Medical History: Reports: Hx Peritoneal Dialysis GI Medical History: Reports: Hx Hiatal Hernia, Hx Ulcer - STOMACH. Denies: Hx Hepatitis Musculoskeltal Medical History: Reports Hx Arthritis Infectious Medical History: Denies: Hx Hepatitis Past Surgical History: Reports: Hx Cardiac Surgery - bypass, pacemaker/ defibulator, Hx Hysterectomy, Hx Open Heart Surgery - bypass 1994, Hx Pacemaker. Denies: Hx Mastectomy - Immunizations Hx Diphtheria, Pertussis, Tetanus Vaccination: Yes Physical Exam - Vital signs Vitals: Temp Pulse Resp BP Pulse Ox 97.8 F 70 16 139/72 H 97 03/07/18 15:57 03/07/18 15:57 03/07/18 15:57 03/07/18 15:57 03/07/18 15:57 Course - Vital Signs Vital signs: Temp Pulse Resp BP Pulse Ox 97.8 F 70 16 139/72 H 97 03/07/18 15:57 03/07/18 15:57 03/07/18 15:57 03/07/18 15:57 03/07/18 15:57 Doctor's Discharge - Discharge Referrals: KYLER SHANNON MD [Primary Care Provider] - Follow up as needed
--- NOTE | 2018-03-07 16:29 | RADIOLOGY REPORT (SQ) ---
EXAM DESCRIPTION: CHEST SINGLE VIEW COMPLETED DATE/TIME: 03/07/2018 4:20 pm REASON FOR STUDY: weakness COMPARISON: 03/27/2017. NUMBER OF VIEWS: One view. TECHNIQUE: Single frontal radiographic view of the chest acquired. LIMITATIONS: None. FINDINGS: LUNGS AND PLEURA: No opacities, masses or pneumothorax. No pleural effusion. MEDIASTINUM AND HILAR STRUCTURES: No masses. Contour normal. HEART AND VASCULAR STRUCTURES: Heart enlarged without failure. Normal vasculature. BONES: No acute findings. HARDWARE: Sternotomy wires, defibrillator, PICC line. OTHER: No other significant finding. IMPRESSION: HEART ENLARGED WITHOUT FAILURE. NO OTHER SIGNIFICANT RADIOGRAPHIC FINDING IN THE CHEST. TECHNICAL DOCUMENTATION: JOB ID: [id number] [employer]- All Rights Reserved Reading location - IP/workstation name: [email or web address]
[2018-03-07 17:18] LABS: HEMATOCRIT 28.9 % (36.0-47.0); HEMOGLOBIN 9.4 g/dL (12.0-15.5); MEAN CORPUSCULAR HEMOGLOBIN 32.3 pg (27.0-33.4); MEAN CORPUSCULAR HGB CONC 32.4 g/dL (32.0-36.0); MEAN CORPUSCULAR VOLUME 100 fl (80-97); PLATELET COUNT 249 10^3/uL (150-450); RED CELL DISTRIBUTION WIDTH 19.6 % (11.5-14.0); WHITE BLOOD COUNT 18.3 10^3/uL (4.0-10.5)
--- NOTE | 2018-03-07 17:44 | ER Document Report ---
ED General - General Mode of Arrival: Wheelchair Information source: Patient, Relative TRAVEL OUTSIDE OF THE [place] IN LAST 30 DAYS: No <SAMMY GA - Last Filed: 03/07/18 23:13> <MARYANN FREIRE - Last Filed: 03/07/18 23:42> - General Chief Complaint: Abdominal Pain Stated Complaint: ABDOMINAL PAIN Time Seen by Provider: 03/07/18 16:03 Notes: Patient is an 83 year old female with ESRD (peritoneal dialysis), CHF, ESRD, CAD , and calciphylaxis presents to the emergency department accompanied by son and daughter in law complaining of fatigue, decreased appetite, and cloudy peritoneal fluid. Son states he drained the fluid from the patient this morning and took it to [facility] where it was noted to be cloudy in appearance. Son states they were directed to the emergency department for further evaluation and concern of peritonitis. Son also states the patient has been more fatigued lately and has had a decrease in appetite along with vomiting. He denies any fevers. Patient had a recent diagnosis of calciphylaxis and family expresses concerns of a wound on the right thigh. Patients PCP is Dr. Moses. Her copyist is Dr. Cooper. (SAMMY GA) - Related Data Allergies/Adverse Reactions: clindamycin [Clindamycin] Allergy (Verified 03/27/17 16:25) codeine [Codeine] Allergy (Verified 03/27/17 16:25) diltiazem HCl [From Cardizem] Allergy (Verified 03/27/17 16:25) Penicillins Allergy (Verified 03/27/17 16:25) Sulfa (Sulfonamide Antibiotics) Allergy (Verified 03/27/17 16:25) Past Medical History - General Information source: Patient, Relative - Social History Smoking Status: Unknown if Ever Smoked Family History: Reviewed & Not Pertinent Patient has suicidal ideation: No Patient has homicidal ideation: No - Past Medical History Cardiac Medical History: Reports: Hx Atrial Fibrillation, Hx Congestive Heart Failure, Hx Heart Attack - 1994, Hx Hypercholesterolemia, Hx Hypertension - MEDS Pulmonary Medical History: Reports: Hx Asthma - LAST ATTACK 3MO Endocrine Medical History: Reports: Hx Diabetes Mellitus Type 2 Renal/ Medical History: Reports: Hx Peritoneal Dialysis GI Medical History: Reports: Hx Hiatal Hernia, Hx Ulcer - STOMACH Musculoskeletal Medical History: Reports Hx Arthritis Past Surgical History: Reports: Hx Cardiac Surgery - bypass, pacemaker/ defibulator, Hx Hysterectomy, Hx Open Heart Surgery - bypass 1994, Hx Pacemaker - Immunizations Hx Diphtheria, Pertussis, Tetanus Vaccination: Yes <SAMMY GA - Last Filed: 03/07/18 23:13> Review of Systems - Review of Systems Constitutional: See HPI, Weakness EENT: No symptoms reported Cardiovascular: No symptoms reported Respiratory: No symptoms reported Gastrointestinal: See HPI, Poor appetite Genitourinary: No symptoms reported Female Genitourinary: No symptoms reported Musculoskeletal: No symptoms reported Skin: No symptoms reported Hematologic/Lymphatic: See HPI Neurological/Psychological: No symptoms reported -: Yes All other systems reviewed and negative <SAMMY GA - Last Filed: 03/07/18 23:13> Physical Exam <SAMMY GA - Last Filed: 03/07/18 23:13> <TANIMARYANN Hoffman - Last Filed: 03/07/18 23:42> - Vital signs Vitals: Temp Pulse Resp BP Pulse Ox 97.8 F 70 16 139/72 H 97 03/07/18 15:57 03/07/18 15:57 03/07/18 15:57 03/07/18 15:57 03/07/18 15:57 - Notes Notes: GENERAL: Sleeping, arousable, follows commands. interacts well. No acute distress. HEAD: Normocephalic, atraumatic. EYES: Pupils equal, round, and reactive to light. Extraocular movements intact. ENT: Oral mucosa moist, tongue midline. NECK: Full range of motion. Supple. Trachea midline. LUNGS: Clear to auscultation bilaterally, no wheezes, rales, or rhonchi. No respiratory distress. HEART: 2/6 systolic murmur. ABDOMEN: Soft, LLQ tenderness to palpation. Non-distended. Bowel sounds present in all 4 quadrants. EXTREMITIES: Moves all 4 extremities spontaneously. No edema, radial and dorsalis pedis pulses 2/4 bilaterally. No cyanosis. NEUROLOGICAL: Alert and oriented x3. Normal speech. PSYCH: Normal affect, normal mood. SKIN: Warm, dry, normal turgor. 6x5in area of eschar on the anterior aspect of right thigh, purulent discharge when palpated. 2x3in of eschar on the anterior aspect of left tight. (SAMMY GA) Course - Laboratory Result Diagrams: 03/07/18 16:50 03/07/18 16:50 <SAMMY GA - Last Filed: 03/07/18 23:13> - Laboratory Result Diagrams: 03/07/18 16:50 03/07/18 16:50 <MARYANN FREIRE - Last Filed: 03/07/18 23:42> - Re-evaluation Re-evalutation: 03/07/18 20:52 Patient found to have leukocytosis she also had purulence from her eschar on her right lower extremity. Peritoneal diasylate pending analysis at this time. Discussed case with Dr. Lomax who will accept patient his primary care impending call from Dr. Cooper at this time. 03/07/18 20:[address] Cooper. She advised to also provide gentamicin. She states that she will follow patient in the hospital. Diasylate show signs of infection due to the white cell count. Cultures and Gram stain pending (MARYANN FREIRE) - Vital Signs Vital signs: Temp Pulse Resp BP Pulse Ox 97.8 F 70 17 146/61 H 97 03/07/18 15:57 03/07/18 15:57 03/07/18 20:00 03/07/18 20:01 03/07/18 20:01 - Laboratory Laboratory results interpreted by me: 03/07/18 03/07/18 03/07/18 16:50 16:50 16:50 WBC 18.3 H RBC 2.90 L Hgb 9.4 L Hct 28.9 L MCV 100 H RDW 19.6 H Seg Neuts % (Manual) 84 H Lymphocytes % (Manual) 7 L Abs Neuts (Manual) 15.9 H Chloride 89 L Carbon Dioxide 14 L Anion Gap 38 H BUN 54 H Creatinine 6.76 H Est GFR ( Amer) 7 L Est GFR (Non-Af Amer) 6 L Glucose 161 H Lactic Acid 4.4 H Direct Bilirubin 0.7 H AST 43 H Albumin 2.8 L Discharge <SAMMY GA - Last Filed: 03/07/18 23:13> - Discharge Admitting Provider: Dami Unit Admitted: ICU <MARYANN FREIRE - Last Filed: 03/07/18 23:42> - Discharge Clinical Impression: Peritonitis Sepsis Qualifiers: Sepsis type: sepsis due to unspecified organism Qualified Code(s): A41.9 - Sepsis, unspecified organism Condition: Fair Disposition: ADMITTED INPATIENT Scribe Attestation: 03/07/18 23:42 I personally performed the services described in the documentation, reviewed and edited the documentation which was dictated to the scribe in my presence, and it accurately records my words and actions. (MARYANN FREIRE) Scribe Documentation - Scribe Written by Joseibe:: Celeste Tello, 03/07/2018 18:30 acting as scribe for :: Tani <SAMMY GA - Last Filed: 03/07/18 23:13>
[2018-03-07 17:46] LABS: ABSOLUTE LYMPHOCYTES# (MANUAL) 1.3 10^3/uL (0.5-4.7); ABSOLUTE MONOCYTES # (MANUAL) 1.1 10^3/uL (0.1-1.4); ABSOLUTE NEUTROPHILS# (MANUAL) 15.9 10^3/uL (1.7-8.2); BAND NEUTROPHILS % (MANUAL) 3 % (3-5); BASOPHILS % (MANUAL) 0 % (0-2); EOSINOPHILS % (MANUAL) 0 % (0-6); LYMPHOCYTES % (MANUAL) 7 % (13-45); MONOCYTES % (MANUAL) 6 % (3-13); SEGMENTED NEUTROPHILS % (MAN) 84 % (42-78); TOTAL CELLS COUNTED 100
[2018-03-07 17:48] LABS: ANISOCYTOSIS 2+; PLATELET COMMENT ADEQUATE
[2018-03-07] MEDS ORDERED: NORMAL SALINE 1000 ML 1,000 ML IV ONE ×2 (17:54→20:51)
[2018-03-07] MEDS ORDERED: PIPERACILLIN/TAZOBACTAM 3.375 GM VIAL IV ONE (17:55)
[2018-03-07] MEDS ORDERED: VANCOMYCIN HCL INJ 1000 MG VIAL IV ONE (17:55)
[2018-03-07 18:25] LABS: ALANINE AMINOTRANSFERASE 38 U/L (9-52); ALBUMIN 2.8 g/dL (3.5-5.0); ALKALINE PHOSPHATASE 100 U/L (38-126); ASPARTATE AMINO TRANSFERASE 43 U/L (14-36); BILIRUBIN,DIRECT 0.7 mg/dL (0.0-0.4); BLOOD UREA NITROGEN 54 mg/dL (7-20); CALCIUM 9.6 mg/dL (8.4-10.2); GLUCOSE 161 mg/dL (75-110); POTASSIUM 3.7 mmol/L (3.6-5.0); TOTAL PROTEIN 6.8 g/dL (6.3-8.2)
[2018-03-07 18:30] LABS: CARBON DIOXIDE 14 mmol/L (22-30); CHLORIDE 89 mmol/L (98-107); SODIUM 140.8 mmol/L (137-145)
[2018-03-07 18:32] LABS: ANION GAP 38 (5-19)
[2018-03-07 20:40] LABS: FLUID SOURCE ABDOMEN; FLUID TYPE PERITONEAL
[2018-03-07 20:41] LABS: FLUID APPEARANCE HAZY; FLUID COLOR YELLOW; FLUID VISCOSITY SLIGHTLY VISCOUS
[2018-03-07] MEDS ORDERED: GENTAMICIN SULFATE INJ 80 MG/2 ML VIAL IV ONE (20:57)
[2018-03-07] MEDS ORDERED: IPRATROPIUM/ALBUTEROL 0.5-2.5 MG/3 ML AMPUL NEB PRN (21:44)
[2018-03-07] MEDS ORDERED: ACETAMINOPHEN 325 MG TABLET PO PRN (21:44)
[2018-03-07] MEDS ORDERED: VANCOMYCIN HCL 0 MG in DEXTROSE 5%-WATER 250 ML IV NR (22:00)
[2018-03-07] MEDS ORDERED: GENTAMICIN SULFATE 0 MG in DEXTROSE 5%-WATER 100 ML IV NR (22:00)
[2018-03-07] MEDS ORDERED: GENTAMICIN SULFATE INJ 80 MG/2 ML VIAL IV PRN ×2 (22:57→23:00)
[2018-03-07] MEDS ORDERED: FAMOTIDINE INJ/PF 20 MG/2 ML SDV IV ONE (23:00)
[2018-03-07] MEDS ORDERED: DEXTROSE 5% IV ONE ×2 (23:00→23:15)
[2018-03-07] MEDS ORDERED: HEPARIN SOD (PORCINE) 5,000 UNIT/ML 1 ML SYRINGE SUBCUT ONE (23:00)
[2018-03-07] MEDS ORDERED: WATER IV ONE ×2 (23:00→23:15)
[2018-03-07] MEDS ORDERED: GENTAMICIN SULFATE IV ONE ×2 (23:00→23:15)
--- NOTE | 2018-03-08 00:10 | EKG REPORT ---
SEVERITY:- ABNORMAL ECG - AFIB/FLUTTER AND VENTRICULAR-PACED RHYTHM : Confirmed by: Laura Chawla MD 08-Mar-2018 00:09:54
[2018-03-08] MEDS ORDERED: ACETAMINOPHEN 325 MG TABLET PO PRN (05:00)
[2018-03-08] MEDS ORDERED: DEXTROSE 5% IV SCH (06:00)
[2018-03-08] MEDS ORDERED: WATER IV SCH (06:00)
[2018-03-08] MEDS ORDERED: HEPARIN SOD (PORCINE) 5,000 UNIT/ML 1 ML SYRINGE SUBCUT SCH (06:00)
[2018-03-08] MEDS ORDERED: GENTAMICIN SULFATE IV SCH (06:00)
[2018-03-08 06:22] LABS: ABSOLUTE LYMPHOCYTES (AUTO) 1.2 10^3/uL (0.5-4.7); ABSOLUTE MONOCYTES (AUTO) 1.1 10^3/uL (0.1-1.4); ABSOLUTE NEUT (AUTO) 12.8 10^3/uL (1.7-8.2); BASOPHILS % (AUTO) 0.1 % (0-2); HEMOGLOBIN 8.1 g/dL (12.0-15.5); LYMPHOCYTES % (AUTO) 7.8 % (13-45); MEAN CORPUSCULAR HEMOGLOBIN 32.1 pg (27.0-33.4); MEAN CORPUSCULAR HGB CONC 32.3 g/dL (32.0-36.0); MEAN CORPUSCULAR VOLUME 99 fl (80-97); MONOCYTES % (AUTO) 7.4 % (3-13); PLATELET COUNT 210 10^3/uL (150-450); RED BLOOD COUNT 2.52 10^6/uL (3.72-5.28); RED CELL DISTRIBUTION WIDTH 18.9 % (11.5-14.0); SEGMENTED NEUTROPHILS % (AUTO) 84.7 % (42-78); TOTAL CELLS COUNTED % (AUTO) 100 %; WHITE BLOOD COUNT 15.1 10^3/uL (4.0-10.5)
[2018-03-08 06:50] LABS: BLOOD UREA NITROGEN 50 mg/dL (7-20); CALCIUM 8.8 mg/dL (8.4-10.2); CARBON DIOXIDE 14 mmol/L (22-30); GLUCOSE 104 mg/dL (75-110); PHOSPHORUS 5.2 mg/dL (2.5-4.5); POTASSIUM 3.7 mmol/L (3.6-5.0)
[2018-03-08 06:59] LABS: CHLORIDE 94 mmol/L (98-107); SODIUM 137.7 mmol/L (137-145)
[2018-03-08 07:04] LABS: ANION GAP 30 (5-19)
[2018-03-08] MEDS: HYDROMORPHONE HCL INJ/PF 2 MG/ML AMPULE IV PRN ×9 (07:35→22:20)
[2018-03-08] MEDS ORDERED: HYDROMORPHONE HCL INJ/PF 2 MG/ML AMPULE ONE (07:36)
[2018-03-08] MEDS ORDERED: ONDANSETRON HCL INJ/PF 4 MG/2 ML SDV IV PRN (07:40)
[2018-03-08] MEDS ORDERED: HYDROMORPHONE HCL INJ/PF 2 MG/ML AMPULE IV PRN (08:35)
[2018-03-08 10:02] LABS: ABSOLUTE LYMPHOCYTES (AUTO) 1.7 10^3/uL (0.5-4.7); ABSOLUTE MONOCYTES (AUTO) 1.4 10^3/uL (0.1-1.4); BASOPHILS % (AUTO) 0.1 % (0-2); HEMATOCRIT 24.4 % (36.0-47.0); LYMPHOCYTES % (AUTO) 11.1 % (13-45); MEAN CORPUSCULAR HEMOGLOBIN 32.5 pg (27.0-33.4); MEAN CORPUSCULAR HGB CONC 32.6 g/dL (32.0-36.0); MEAN CORPUSCULAR VOLUME 100 fl (80-97); MONOCYTES % (AUTO) 9.3 % (3-13); PLATELET COUNT 208 10^3/uL (150-450); RED BLOOD COUNT 2.45 10^6/uL (3.72-5.28); RED CELL DISTRIBUTION WIDTH 19.5 % (11.5-14.0); SEGMENTED NEUTROPHILS % (AUTO) 79.5 % (42-78); TOTAL CELLS COUNTED % (AUTO) 100 %; WHITE BLOOD COUNT 15.1 10^3/uL (4.0-10.5)
[2018-03-08] MEDS: FAMOTIDINE INJ/PF 20 MG/2 ML SDV IV SCH ×2 (10:53→22:19)
--- NOTE | 2018-03-08 12:14 | PDOC TRANSFER SUMMARY ---
General Admission Date/PCP: 03/07/18 21:13 KYLER SHANNON MD Transfer Date: 03/08/18 Accepting Facility: [facility] Resuscitation Status: Full Code - Transfer Diagnosis (1) Rectal bleeding Is this a current diagnosis for this admission?: Yes (2) End stage renal disease Is this a current diagnosis for this admission?: Yes (3) Hypertension Is this a current diagnosis for this admission?: Yes (4) Congestive heart failure Is this a current diagnosis for this admission?: Yes (5) Coronary artery disease Is this a current diagnosis for this admission?: Yes (6) Calciphylaxis Is this a current diagnosis for this admission?: Yes (7) Open thigh wound Is this a current diagnosis for this admission?: Yes (8) Peritonitis Is this a current diagnosis for this admission?: Yes (9) Sepsis Is this a current diagnosis for this admission?: Yes (10) Current use of custodial anticoagulation Is this a current diagnosis for this admission?: Yes - Transfer Medications Home Medications: Allopurinol [Zyloprim 100 mg Tablet] 100 mg PO DAILY 03/08/18 Epoetin Perfecto [Procrit Inj 40,000 Unit/1 Ml Vial (Esrd-Subq)] 40,000 unit SUBCUT 03/08/18 Fentanyl [Duragesic 100 Mcg/Hr Transdermal Patch] 1 patch TD Q3D 03/08/18 Furosemide [Lasix 80 mg Tablet] 80 mg PO QAM 03/08/18 Hydromorphone HCl [Dilaudid 2 mg Tablet] 4 mg PO Q2HP PRN 03/08/18 Lactulose [Constulose 10 gm/15 mL Oral Solution] 10 gm PO 03/08/18 Lidocaine [Lidoderm 5% (700 mg) Transdermal Patch] 1 patch TP DAILY 03/08/18 Megestrol Acetate [Megace Es] 625 mg PO 03/08/18 Metoprolol Tartrate [Lopressor 25 mg Tablet] 25 mg PO DAILY 03/08/18 Naloxone HCl 0.4 mg IJ 03/08/18 Olopatadine HCl [Patanol 0.1% Oph Soln 5 Ml Bottle] 1 drop 03/08/18 Potassium Chloride [Kaon-Cl 20 Meq/15 Ml Udcup] 20 meq PO 03/08/18 Sodium Thiosulfate 12.5 Gm In Ns 50 Ml 12.5 gm IV TUTHFR@1000 03/08/18 Warfarin Sodium [Coumadin 1 mg Tablet] 1 mg PO 03/08/18 Transfer Medications: Current Medications Acetaminophen (Tylenol 325 Mg Tablet) 650 mg PO Q4HP PRN PRN Reason: FOR MILD PAIN Stop: 04/06/18 21:43 Albuterol/Ipratropium (Duoneb 3 Ml Ampul) 3 ml NEB RTQ6HP PRN PRN Reason: SHORTNESS OF BREATH Stop: 04/06/18 21:43 Famotidine (Pepcid Inj/Pf 20 Mg/2 Ml Sdv) 20 mg IV Q12 [facility] Stop: 04/07/18 09:59 Last Admin: 03/08/18 10:53 Dose: 20 mg Hydromorphone HCl (Dilaudid Inj/Pf 2 Mg/Ml Ampule) 1 mg IV Q3HP PRN PRN Reason: FOR PAIN SCALE 1-3 Stop: 03/15/18 08:34 Hydromorphone HCl (Dilaudid Inj/Pf 2 Mg/Ml Ampule) 2 mg IV Q2HP PRN PRN Reason: PAIN Stop: 03/15/18 10:32 Last Admin: 03/08/18 11:10 Dose: 2 mg Gentamicin Sulfate / Dextrose 100 mls @ 0 mls/hr IV .PHARMACY TO DOSE NR PRN Reason: As Directed Stop: 03/14/18 21:59 Vancomycin HCl 750 mg/ (Dextrose) 250 mls @ 166.667 mls/hr IV PDIA [facility] Stop: 03/17/18 17:59 Ondansetron HCl (Zofran Odt 4 Mg Tablet) 4 mg PO Q4HP PRN PRN Reason: FOR NAUSEA/VOMITING Stop: 04/06/18 21:43 Ondansetron HCl (Zofran Inj/Pf 4 Mg/2 Ml Sdv) 4 mg IV Q6HP PRN PRN Reason: FOR NAUSEA/VOMITING Stop: 04/07/18 07:39 Silver Sulfadiazine (Silvadene 1% Cream 400 Gm) 1 applic TP QID [facility] Stop: 04/07/18 13:59 - Allergies Allergies/Adverse Reactions: clindamycin [Clindamycin] Allergy (Verified 03/27/17 16:25) codeine [Codeine] Allergy (Verified 03/27/17 16:25) diltiazem HCl [From Cardizem] Allergy (Verified 03/27/17 16:25) Penicillins Allergy (Verified 03/27/17 16:25) Sulfa (Sulfonamide Antibiotics) Allergy (Verified 03/27/17 16:25) Hospital Course Hospital Course: This is a 83-year-old female with a significant medical problem including the end-stage renal disease on peritoneal dialysis noticed a cloudy peritoneal black and the patient was sent to the emergency department with the patient was diagnosed with possible peritonitis with the flu WBCs more than 19,000 patients giving the vancomycin and gentamicin Patient also have a significant eschar wound to both thigh area and the patient have a pus coming from that area to Patients also have a history of calciphylaxis and currently has sodium thiosulfate IV infusions Patient onset was significant chronic pain currently taking the chronic pain medications Patient also noticed rectal bleed not sure of the source of the bleeding patient hemoglobin dropped from 9.4-8.1 Patient also on chronic Coumadin due to the chronic heart conditions and A. fib At this point the patient seen by the general surgery and also nephrology and suggest the patient's GI bleed not sure the source for the GI evaluations and no GI availability here in patients at this point transfer to a tertiary center Discussed with the patient's family and the patient was in a [facility] for a month Patients at this point transported to [facility] for further evaluations Will get the PT/INR and a repeat CBC and if he needed to come start the patient on FFP Physical Exam Vital Signs: Temp Pulse Resp BP Pulse Ox 98.6 F 69 20 142/70 H 96 03/08/18 07:22 03/08/18 07:22 03/08/18 07:22 03/08/18 07:22 03/08/18 07:22 Intake & Output 03/07/18 03/08/18 03/09/18 06:59 06:59 06:59 Intake Total 1600 Output Total 1850 Balance -250 Weight 67.4 kg General appearance: PRESENT: no acute distress Eye exam: PRESENT: EOMI Respiratory exam: PRESENT: clear to auscultation milana Cardiovascular exam: PRESENT: +S1, +S2 GI/Abdominal exam: PRESENT: normal bowel sounds, soft, tenderness Rectal exam: PRESENT: heme (+) stool Neurological exam: PRESENT: alert, awake, oriented to person Skin exam: PRESENT: dry Results Laboratory Results: 03/08/18 09:25 03/08/18 05:45 03/07/18 03/08/18 03/08/18 22:47 05:45 05:45 WBC 15.1 H RBC 2.52 L Hgb 8.1 L Hct 25.0 L MCV 99 H MCH 32.1 MCHC 32.3 RDW 18.9 H Plt Count 210 Seg Neutrophils % 84.7 H Lymphocytes % 7.8 L Monocytes % 7.4 Eosinophils % 0.0 Basophils % 0.1 Absolute Neutrophils 12.8 H Absolute Lymphocytes 1.2 Absolute Monocytes 1.1 Absolute Eosinophils 0.0 Absolute Basophils 0.0 Sodium 137.7 Potassium 3.7 Chloride 94 L Carbon Dioxide 14 L Anion Gap 30 H BUN 50 H Creatinine 5.80 H Est GFR ( Amer) 8 L Est GFR (Non-Af Amer) 7 L Glucose 104 Lactic Acid 1.9 Calcium 8.8 Phosphorus 5.2 H Magnesium 1.9 Stool Occult Blood 03/08/18 03/08/18 03/08/18 05:45 09:00 09:25 WBC 15.1 H RBC 2.45 L Hgb 8.0 L Hct 24.4 L MCV 100 H MCH 32.5 MCHC 32.6 RDW 19.5 H Plt Count 208 Seg Neutrophils % 79.5 H Lymphocytes % 11.1 L Monocytes % 9.3 Eosinophils % 0.0 Basophils % 0.1 Absolute Neutrophils 12.0 H Absolute Lymphocytes 1.7 Absolute Monocytes 1.4 Absolute Eosinophils 0.0 Absolute Basophils 0.0 Sodium Potassium Chloride Carbon Dioxide Anion Gap BUN Creatinine Est GFR ( Amer) Est GFR (Non-Af Amer) Glucose Lactic Acid 1.3 Calcium Phosphorus Magnesium Stool Occult Blood POSITIVE Impressions: Chest X-Ray 03/07/18 16:04 IMPRESSION: HEART ENLARGED WITHOUT FAILURE. NO OTHER SIGNIFICANT RADIOGRAPHIC FINDING IN THE CHEST. Plan Time Spent: Greater than 30 Minutes - Patient's [facility]
--- NOTE | 2018-03-08 13:34 | PDOC CONSULTATION ---
Consultation Consult Date: 03/08/18 Attending physician:: TUCKER LOMAX Consult reason:: I was asked by Dr. Lomax to see the patient because of peritonitis with sepsis and calciphylaxis. History of Present Illness Admission Date/PCP: 03/07/18 21:13 KYLER SHANNON MD History of Present Illness: NANCY BIRMINGHAM is a 83 year old female known to me with history of end-stage renal disease on peritoneal dialysis, calciphylaxis, chronic systolic heart failure, atrial fibrillation on anticoagulation, hypertension, and ischemic cardiomyopathy who was admitted yesterday for sepsis and peritonitis. Yesterday the patient's son who usually does the patient's peritoneal dialysis noted that the patient had very cloudy dialysate effluent. I had our peritoneal dialysis nurse asked patient to come to [facility] to be evaluated. Patient was apparently looking worse and very weak with a cloudy bag so she was sent to the emergency room. The son said that they just noticed a cloudy bag yesterday when they called. Patient complained of some abdominal pain for 2 days. She denies fever but admits that she has some chills, nausea, and vomiting especially with treatment with sodium thiosulfate. Patient was diagnosed to have calciphylaxis with painful bilateral thigh wounds. This is being treated currently with sodium thiosulfate 3 times a week. This coming week will be her last week of for 3 months treatment. Patient does get the nausea, vomiting with the treatment. She is also getting pain medications from the pain specialist for the thigh lesions. Is also being followed by the wound management for the wound lesions on the thighs. Most recently she also developed sacral bed sore. Initial evaluation yesterday showed an elevated white count of 18, and the PD fluid WBC count of 19,000 consistent with acute peritonitis. Blood cultures are growing gram-positive cocci in pairs. Patient was noted initially given a dose of Zosyn, 2 g of IV vancomycin, and 100 mg of gentamicin yesterday. Patient continues to be very tired and fatigue and was noted to have very decreased appetite for the last 2-3 days by family members at bedside. She also admits some dry cough, intermittent chest pains and shortness of breath. Additionally the patient has had constipation for about a week which needed laxatives and digital extraction by family members resulting to bowel movement last Saturday. Patient did have bowel movement yesterday but noted to have some bright red blood per rectum until this morning. Surgery was consulted and Dr. Lopez did a rectal exam just now external to be negative. Patient was given a liter of IV fluids yesterday. There was a hemoglobin drop go from 9-8 today. For the patient's possible anaphylaxis skin lesions, there was a note of purulent drainage from a small ulcer which developed on her right thigh lesion. Wound culture was obtained and is still currently pending. Surgery evaluated the lesions. Patient also has right knee swelling and tenderness. When I came in and around the patient just finished draining her PD fluid. The fluid is still cloudy in appearance but the son told me that it is actually much better than yesterday. The son describes her PD effluent fluid yesterday as like pineapple juice. Patient is so far tolerating peritoneal dialysis without any problems or complications being done every 4 hours per my order. Past Medical History Cardiac Medical History: Reports: Atrial Fibrillation, CHF-Systolic, Coronary Artery Disease, Hyperlipidemia, Hypertension-primary, Myocardial Infarction - 1994, Peripheral Vascular Disease Pulmonary Medical History: Reports: Asthma - LAST ATTACK 3MO, Sleep Apnea Neurological Medical History: Reports: Seizures Endocrine Medical History: Reports: Diabetes Mellitus Type 2, Hypothyroidism Renal/ Medical History: Reports: End Stage Renal Disease, Hyperphosphatemia, Nephrolithiasis, Renal Osteodystropy, Other - Calciphylaxis GI Medical History: Reports: Gastroesophageal Reflux Disease, Hiatal Hernia, Other - Irritable bowel syndrome Musculoskeltal Medical History: Reports: Arthritis, Fibromyalgia, Gout, Other - Osteoporosis Hematology Medical History: Reports Anemia of Chronic Kidney Disease Past Surgical History Past Surgical History: Reports: Appendectomy, Hysterectomy, Internal Defibrillator, Pacemaker, Other - AV node ablation, Social History Information Source: Patient, Relative Lives with: Family Smoking Status: Never Smoker Frequency of Alcohol Use: None Hx Recreational Drug Use: No Hx Prescription Drug Abuse: No - Advance Directive Resuscitation Status: Full Code Family History Family History: CAD - Brother, Chronic Kidney Disease - Sister and son, DM - Son , Hypertension - Son Parental Family History Reviewed: Yes Children Family History Reviewed: Yes Sibling(s) Family History Reviewed.: Yes Medication/Allergy Home Medications: Allopurinol [Zyloprim 100 mg Tablet] 100 mg PO DAILY 03/08/18 Epoetin Perfecto [Procrit Inj 40,000 Unit/1 Ml Vial (Esrd-Subq)] 40,000 unit SUBCUT 03/08/18 Fentanyl [Duragesic 100 Mcg/Hr Transdermal Patch] 1 patch TD Q3D 03/08/18 Furosemide [Lasix 80 mg Tablet] 80 mg PO QAM 03/08/18 Hydromorphone HCl [Dilaudid 2 mg Tablet] 4 mg PO Q2HP PRN 03/08/18 Lactulose [Constulose 10 gm/15 mL Oral Solution] 10 gm PO 03/08/18 Lidocaine [Lidoderm 5% (700 mg) Transdermal Patch] 1 patch TP DAILY 03/08/18 Megestrol Acetate [Megace Es] 625 mg PO 03/08/18 Metoprolol Tartrate [Lopressor 25 mg Tablet] 25 mg PO DAILY 03/08/18 Naloxone HCl 0.4 mg IJ 03/08/18 Olopatadine HCl [Patanol 0.1% Oph Soln 5 Ml Bottle] 1 drop 03/08/18 Potassium Chloride [Kaon-Cl 20 Meq/15 Ml Udcup] 20 meq PO 03/08/18 Sodium Thiosulfate 12.5 Gm In Ns 50 Ml 12.5 gm IV TUTHFR@1000 03/08/18 Warfarin Sodium [Coumadin 1 mg Tablet] 1 mg PO 03/08/18 Allergies/Adverse Reactions: clindamycin [Clindamycin] Allergy (Verified 03/27/17 16:25) codeine [Codeine] Allergy (Verified 03/27/17 16:25) diltiazem HCl [From Cardizem] Allergy (Verified 03/27/17 16:25) Penicillins Allergy (Verified 03/27/17 16:25) Sulfa (Sulfonamide Antibiotics) Allergy (Verified 03/27/17 16:25) Review of Systems All systems: reviewed and no additional remarkable complaints except as stated Review of Systems: Constitutional: ABSENT: Fever(s), headache(s), weight gain, weight loss, admits fatigue and chills Eyes: ABSENT: visual disturbances Ears: ABSENT: hearing changes Cardiovascular: ABSENT: Edema, orthropnea, palpitations, admits chest pains and shortness of breath Respiratory: ABSENT: Hemoptysis, admits dry cough Gastrointestinal: ABSENT: Diarrhea, hematemesis, hematochezia; admits nausea, vomiting, abdominal pain, and constipation Genitourinary: ABSENT: dysuria, hematuria Musculoskeletal: ABSENT: joint swelling Integumentary: ABSENT: rash, wounds Neurological: ABSENT: abnormal gait, abnormal speech, confusion, dizziness, focal weakness, numbness, syncope Psychiatric: ABSENT: anxiety, depression Endocrine: ABSENT: cold intolerance, heat intolerance, polydipsia, polyuria Hematologic/Lymphatic: ABSENT: easy bleeding, easy bruising, lymphadenopathy Physical Exam Vital Signs: Temp Pulse Resp BP Pulse Ox 98.6 F 86 22 H 142/70 H 96 03/08/18 07:22 03/08/18 12:27 03/08/18 12:27 03/08/18 07:22 03/08/18 07:22 Intake & Output 03/07/18 03/08/18 03/09/18 06:59 06:59 06:59 Intake Total 1600 Output Total 1850 Balance -250 Weight 67.4 kg Exam: General appearance: no acute distress, cooperative, well-developed, well- nourished Head exam: PRESENT: atraumatic, normocephalic Eye exam: PRESENT: Conjunctiva pale, EOMI, eyes closed most of the time but she opens eyes when prompted PERRLA. ABSENT: conjunctival injection, scleral icterus Mouth exam: PRESENT: moist, neck supple, tongue midline Neck exam: PRESENT: full ROM. ABSENT: carotid bruit, JVD, lymphadenopathy, thyromegaly Respiratory exam: PRESENT: Diminished to auscultation bilaterally. ABSENT: rales, rhonchi, stridor, wheezes Cardiovascular exam: PRESENT: RRR, +S1, +S2. ABSENT: systolic murmur Pulses: PRESENT: normal radial pulses, normal dorsalis pedis pulses GI/Abdominal exam: PRESENT: normal bowel sounds, soft. PD catheter exit site without any drainage or erythema ABSENT: guarding, mass, tenderness Rectal exam: deferred Extremities exam: PRESENT: full ROM. Trace bilateral lower extremity edema more in the right, mild swelling in the right knee with tenderness ABSENT: calf tenderness Musculoskeletal: PRESENT: full ROM. ABSENT: deformity Neurological exam: PRESENT: alert, Awake, Oriented to person, Oriented to place , Oriented to time, reflexes normal, CN II-XII grossly intact. ABSENT: motor sensory deficit Psychiatric exam: PRESENT: appropriate affect, normal mood. ABSENT: homicidal ideation, suicidal ideation Skin exam: PRESENT: Dry, warm. She has bilateral thigh lesions with eschar formation. There is a small ulcer with purulent drainage at one part of the right thigh lesion. She also has this sacral decubitus ulcer. ABSENT: rash Results Laboratory Results: 03/08/18 09:25 03/08/18 05:45 03/07/18 03/08/18 03/08/18 22:47 05:45 05:45 WBC 15.1 H RBC 2.52 L Hgb 8.1 L Hct 25.0 L MCV 99 H MCH 32.1 MCHC 32.3 RDW 18.9 H Plt Count 210 Seg Neutrophils % 84.7 H Lymphocytes % 7.8 L Monocytes % 7.4 Eosinophils % 0.0 Basophils % 0.1 Absolute Neutrophils 12.8 H Absolute Lymphocytes 1.2 Absolute Monocytes 1.1 Absolute Eosinophils 0.0 Absolute Basophils 0.0 Sodium 137.7 Potassium 3.7 Chloride 94 L Carbon Dioxide 14 L Anion Gap 30 H BUN 50 H Creatinine 5.80 H Est GFR ( Amer) 8 L Est GFR (Non-Af Amer) 7 L Glucose 104 Lactic Acid 1.9 Calcium 8.8 Phosphorus 5.2 H Magnesium 1.9 Stool Occult Blood 03/08/18 03/08/18 03/08/18 05:45 09:00 09:25 WBC 15.1 H RBC 2.45 L Hgb 8.0 L Hct 24.4 L MCV 100 H MCH 32.5 MCHC 32.6 RDW 19.5 H Plt Count 208 Seg Neutrophils % 79.5 H Lymphocytes % 11.1 L Monocytes % 9.3 Eosinophils % 0.0 Basophils % 0.1 Absolute Neutrophils 12.0 H Absolute Lymphocytes 1.7 Absolute Monocytes 1.4 Absolute Eosinophils 0.0 Absolute Basophils 0.0 Sodium Potassium Chloride Carbon Dioxide Anion Gap BUN Creatinine Est GFR ( Amer) Est GFR (Non-Af Amer) Glucose Lactic Acid 1.3 Calcium Phosphorus Magnesium Stool Occult Blood POSITIVE Impressions: Chest X-Ray 03/07/18 16:04 IMPRESSION: HEART ENLARGED WITHOUT FAILURE. NO OTHER SIGNIFICANT RADIOGRAPHIC FINDING IN THE CHEST. Assessment & Plan - Diagnosis (1) Sepsis Qualifiers: Sepsis type: sepsis due to unspecified organism Qualified Code(s): A41.9 - Sepsis, unspecified organism Is this a current diagnosis for this admission?: Yes Plan: I think the cause is multifactorial to include peritonitis, and calciphylaxis ulcer. She has elevated lactic acid on admission as well as elevated WBC on her PD fluid effluent. Blood cultures are currently growing gram-positive cocci in pairs. PD fluid culture is still pending and the right thigh ulcer culture is still pending. Patient was given vancomycin and gentamicin yesterday 1 dose. Will check vancomycin and gentamicin trough level tomorrow. Continue Zosyn IV every 8 hours. I will probably switch her vancomycin and gentamicin intraperitoneally in the next few days depending on culture results. (2) Peritonitis Is this a current diagnosis for this admission?: Yes Plan: PD fluid effluent culture is still pending at this time. Will eventually give intraperitoneal antibiotics the next few days. (3) Calciphylaxis Is this a current diagnosis for this admission?: Yes Plan: This caused bilateral thigh ulcers which caused tremendous amount of pain. We will continue sodium thiosulfate for her last week 3 times a week this coming week. Continue pain medications. Surgery has evaluated the patient. Dr. Lopez plans to do debridement on the right thigh ulcer with purulent drainage. Discussed the case with Dr. Lopez. (4) Sacral ulcer Is this a current diagnosis for this admission?: Yes (5) End stage renal disease Is this a current diagnosis for this admission?: Yes Plan: We will continue CAPD while here in the hospital every 4 hours for a total of 6 cycles in 24 hours. We will continue to use 1.5% solution. I will try to increase her fill volume to 900 mL if she can tolerate it to improve adequacy. The plan is to ultimately switched the patient to hemodialysis since she is not being dialyzed adequately using peritoneal dialysis once her sepsis and peritonitis is improved. (6) Anemia Is this a current diagnosis for this admission?: Yes Plan: Patient is a baseline anemia of chronic kidney disease. Rectal bleeding likely to contribute. (7) Poor nutrition Is this a current diagnosis for this admission?: Yes (8) Congestive heart failure Qualifiers: Heart failure type: systolic Is this a current diagnosis for this admission?: Yes Plan: Currently compensated. (9) Coronary artery disease Is this a current diagnosis for this admission?: Yes (10) Hypertension Is this a current diagnosis for this admission?: Yes (11) Open thigh wound Qualifiers: Laterality: right Is this a current diagnosis for this admission?: Yes Plan: Surgery today to debridement. (12) Rectal bleeding Is this a current diagnosis for this admission?: Yes Plan: Patient does have a history of internal hemorrhoids. Additionally her PT and INR was found to be elevated. Defer to primary provider for management of this. - Notes Notes: Condition discussed with the patient and her son and [id number]. Current plan of treatment also discussed. I also asked the patient regarding CODE STATUS and the patient wanted to be full code. Also discussed the case with Dr. Lomax. Thank you very much for allowing me to participate in the care of the patient. I will follow the patient with you. - Time Time Spent: Greater than 70 Minutes Medications reviewed and adjusted accordingly: Yes
[2018-03-08] MEDS: ONDANSETRON 4 MG TAB.RAPDIS PO PRN (14:20)
[2018-03-08] MEDS: PIPERACILLIN SODIUM/TAZOBACTAM 2.25 GM in NORMAL SALINE 50 ML IV SCH ×2 (14:26→23:21)
[2018-03-08 14:35] LABS: INTERNATIONAL RATION (INR) 15.51; PROTHROMBIN TIME 118.6 SEC (11.4-15.4)
[2018-03-08 15:13] LABS: MEAN CORPUSCULAR HEMOGLOBIN 32.9 pg (27.0-33.4); MEAN CORPUSCULAR HGB CONC 32.9 g/dL (32.0-36.0); MEAN CORPUSCULAR VOLUME 100 fl (80-97); PLATELET COUNT 209 10^3/uL (150-450); WHITE BLOOD COUNT 13.2 10^3/uL (4.0-10.5)
[2018-03-08 15:29] LABS: HEMOGLOBIN 7.9 g/dL (12.0-15.5)
[2018-03-08 15:35] LABS: ABSOLUTE LYMPHOCYTES# (MANUAL) 1.5 10^3/uL (0.5-4.7); ABSOLUTE MONOCYTES # (MANUAL) 0.1 10^3/uL (0.1-1.4); ABSOLUTE NEUTROPHILS# (MANUAL) 11.6 10^3/uL (1.7-8.2); BASOPHILS % (MANUAL) 0 % (0-2); EOSINOPHILS % (MANUAL) 0 % (0-6); LYMPHOCYTES % (MANUAL) 11 % (13-45); METAMYELOCYTES % (MANUAL) 1 % (0); MONOCYTES % (MANUAL) 1 % (3-13); SEGMENTED NEUTROPHILS % (MAN) 87 % (42-78); TOTAL CELLS COUNTED 100
[2018-03-08 15:36] LABS: ANISOCYTOSIS 2+; OVALOCYTES SLIGHT; PLATELET COMMENT ADEQUATE; POIKILOCYTOSIS SLIGHT; POLYCHROMASIA SLIGHT
[2018-03-08] MEDS ORDERED: DIPHENHYDRAMINE HCL 50 MG/ML VIAL IV PRN (15:45)
[2018-03-08] MEDS: FENTANYL 100 MCG/HR PATCH.TD72 TD SCH (16:04)
[2018-03-08] MEDS ORDERED: PHYTONADIONE INJ 1 MG/0.5 ML DISP.SYRIN IM ONE (17:00)
[2018-03-08] MEDS: SILVER SULFADIAZINE 1% CREAM 400 GM TP SCH ×3 (17:09→22:21)
[2018-03-08] MEDS ORDERED: GENTAMICIN SULFATE 0.1% CREAM 15 GM ONE (17:11)
[2018-03-08] MEDS ORDERED: PIPERACILLIN SODIUM/TAZOBACTAM 2.25 GM in NORMAL SALINE 50 ML IV SCH (18:00)
--- NOTE | 2018-03-08 18:08 | PDOC CONSULTATION ---
Consultation Consult Date: 03/08/18 Consult reason:: rectal bleeding and purulent material from right thigh History of Present Illness Admission Date/PCP: 03/07/18 21:13 KYLER SHANNON MD Patient complains of: abdominal pains History of Present Illness: NANCY BIRMINGHAM is a 83 year old female with history of P. Dialysis possibly infected and being treated for 6 months now for Calciphylaxis per Dr Cooper; on coumadin for A Fib and noted rectal bleed and pus drainage from area of Calciphylaxis on her right lateral thigh today. Son claims he disimpacted her a few days ago without bleeding but known to have hemrrhoids. Past Medical History Cardiac Medical History: Reports: Atrial Fibrillation, Congestive Heart Failure , Coronary Artery Disease, Myocardial Infarction - 1994, Hyperlipidema, Hypertension - MEDS, Peripheral Vascular Disease Pulmonary Medical History: Reports: Asthma - LAST ATTACK 3MO, Sleep Apnea Neurological Medical History: Reports: Seizures Endocrine Medical History: Reports: Diabetes Mellitus Type 2, Hypothyroidism Renal/ Medical History: Reports: End Stage Renal Disease, Nephrolithiasis, Other - Calciphylaxis GI Medical History: Reports: Gastroesophageal Reflux Disease, Hiatal Hernia, Other - Irritable bowel syndrome Denies: Hepatitis Musculoskeltal Medical History: Reports: Arthritis, Fibromyalgia, Gout, Other - Osteoporosis Psychiatric Medical History: Denies: Depression Hematology: Reports: Anemia Denies: Sickle Cell Disease Past Surgical History Past Surgical History: Reports: Appendectomy, Hysterectomy, Internal Defibrillator, Pacemaker, Other - AV node ablation, Denies: Amputation, Mastectomy Social History Lives with: Family Smoking Status: Never Smoker Frequency of Alcohol Use: None Hx Recreational Drug Use: No Hx Prescription Drug Abuse: No - Advance Directive Resuscitation Status: Full Code Family History Family History: Reviewed & Not Pertinent Parental Family History Reviewed: Yes Children Family History Reviewed: No Sibling(s) Family History Reviewed.: No Medication/Allergy Home Medications: Allopurinol [Zyloprim 100 mg Tablet] 100 mg PO DAILY 03/08/18 Epoetin Perfecto [Procrit Inj 40,000 Unit/1 Ml Vial (Esrd-Subq)] 40,000 unit SUBCUT ASDIR PRN 03/08/18 Fentanyl [Duragesic 100 Mcg/Hr Transdermal Patch] 1 patch TD Q3D 03/08/18 Furosemide [Lasix 80 mg Tablet] 80 mg PO QAM 03/08/18 Hydromorphone HCl [Dilaudid 2 mg Tablet] 4 mg PO Q2HP PRN 03/08/18 Lactulose [Constulose 10 gm/15 mL Oral Solution] 20 gm PO DAILYP PRN 03/08/18 Lidocaine [Lidoderm 5% (700 mg) Transdermal Patch] 2 patch TP DAILY MDD ONE FOR EACH HIP 03/08/18 Magnesium Oxide [Mag-Ox 400 mg Tablet] 400 mg PO DAILY 03/08/18 Megestrol Acetate 200 mg PO DAILY 03/08/18 Metoprolol Tartrate [Lopressor 25 mg Tablet] 12.5 mg PO Q12 03/08/18 Olopatadine HCl [Patanol 0.1% Oph Soln 5 Ml Bottle] 1 drop OU BID 03/08/18 Potassium Chloride [Kaon-Cl 20 Meq/15 Ml Udcup] 40 meq PO DAILY MDD FROM [facility] 03/08/18 Sodium Thiosulfate 12.5 Gm In Ns 50 Ml 12.5 gm IV TUTHFR@1000 03/08/18 Warfarin Sodium [Coumadin 1 mg Tablet] 2 mg PO DAILY MDD FROM [facility] 01/29/1803/08 Allergies/Adverse Reactions: clindamycin [Clindamycin] Allergy (Verified 03/27/17 16:25) codeine [Codeine] Allergy (Verified 03/27/17 16:25) diltiazem HCl [From Cardizem] Allergy (Verified 03/27/17 16:25) Penicillins Allergy (Verified 03/27/17 16:25) Sulfa (Sulfonamide Antibiotics) Allergy (Verified 03/27/17 16:25) Review of Systems Constitutional: PRESENT: other - no fever Eyes: PRESENT: other - no visual/hearing changes Cardiovascular: PRESENT: other - no apparent cough/chest pains Gastrointestinal: PRESENT: abdominal pain Musculoskeletal: PRESENT: other - milana knee pains Neurological: PRESENT: weakness Physical Exam Vital Signs: Temp Pulse Resp BP Pulse Ox 98.6 F 86 22 H 142/70 H 96 03/08/18 07:22 03/08/18 12:27 03/08/18 12:27 03/08/18 07:22 03/08/18 07:22 Intake & Output 03/07/18 03/08/18 03/09/18 06:59 06:59 06:59 Intake Total 1600 0 Output Total 1850 0 Balance -250 0 Weight 67.4 kg General appearance: PRESENT: mild distress Eye exam: PRESENT: conjunctiva pale Mouth exam: PRESENT: moist Neck exam: PRESENT: full ROM Respiratory exam: PRESENT: clear to auscultation milana Cardiovascular exam: PRESENT: RRR Pulses: PRESENT: normal radial pulses Vascular exam: PRESENT: pallor GI/Abdominal exam: PRESENT: soft, tenderness - diffuse Rectal exam: PRESENT: hemorrhoids, other - no gross blood on rectal exam. Small hemorrhoids without bleeding Extremities exam: PRESENT: other - Has a thick eschar(calciphylaxis) on both lateral thighs, tender with pus coming out of the right side Neurological exam: PRESENT: awake, other - very weak Psychiatric exam: PRESENT: anxious Results Laboratory Results: 03/08/18 13:28 03/08/18 05:45 03/07/18 03/08/18 03/08/18 22:47 05:45 05:45 WBC 15.1 H RBC 2.52 L Hgb 8.1 L Hct 25.0 L MCV 99 H MCH 32.1 MCHC 32.3 RDW 18.9 H Plt Count 210 Seg Neutrophils % 84.7 H Lymphocytes % 7.8 L Monocytes % 7.4 Eosinophils % 0.0 Basophils % 0.1 Absolute Neutrophils 12.8 H Absolute Lymphocytes 1.2 Absolute Monocytes 1.1 Absolute Eosinophils 0.0 Absolute Basophils 0.0 Sodium 137.7 Potassium 3.7 Chloride 94 L Carbon Dioxide 14 L Anion Gap 30 H BUN 50 H Creatinine 5.80 H Est GFR ( Amer) 8 L Est GFR (Non-Af Amer) 7 L Glucose 104 Lactic Acid 1.9 Calcium 8.8 Phosphorus 5.2 H Magnesium 1.9 Stool Occult Blood Blood Type Antibody Screen 03/08/18 03/08/18 03/08/18 05:45 09:00 09:25 WBC 15.1 H RBC 2.45 L Hgb 8.0 L Hct 24.4 L MCV 100 H MCH 32.5 MCHC 32.6 RDW 19.5 H Plt Count 208 Seg Neutrophils % 79.5 H Lymphocytes % 11.1 L Monocytes % 9.3 Eosinophils % 0.0 Basophils % 0.1 Absolute Neutrophils 12.0 H Absolute Lymphocytes 1.7 Absolute Monocytes 1.4 Absolute Eosinophils 0.0 Absolute Basophils 0.0 Sodium Potassium Chloride Carbon Dioxide Anion Gap BUN Creatinine Est GFR ( Amer) Est GFR (Non-Af Amer) Glucose Lactic Acid 1.3 Calcium Phosphorus Magnesium Stool Occult Blood POSITIVE Blood Type Antibody Screen 03/08/18 03/08/18 09:38 13:28 WBC 13.2 H RBC 2.40 L Hgb 7.9 L Hct 24.0 L MCV 100 H MCH 32.9 MCHC 32.9 RDW 20.0 H Plt Count 209 Seg Neutrophils % Not Reportable Lymphocytes % Not Reportable Monocytes % Not Reportable Eosinophils % Not Reportable Basophils % Not Reportable Absolute Neutrophils Not Reportable Absolute Lymphocytes Not Reportable Absolute Monocytes Not Reportable Absolute Eosinophils Not Reportable Absolute Basophils Not Reportable Sodium Potassium Chloride Carbon Dioxide Anion Gap BUN Creatinine Est GFR ( Amer) Est GFR (Non-Af Amer) Glucose Lactic Acid Calcium Phosphorus Magnesium Stool Occult Blood Blood Type A POSITIVE Antibody Screen NEGATIVE Impressions: Chest X-Ray 03/07/18 16:04 IMPRESSION: HEART ENLARGED WITHOUT FAILURE. NO OTHER SIGNIFICANT RADIOGRAPHIC FINDING IN THE CHEST. Assessment & Plan - Diagnosis (1) coagulopathy due to coumadin Is this a current diagnosis for this admission?: Yes - Time Time Spent: 30 to 50 Minutes - Inpatient Certification Medical Necessity: Need For IV Fluids, Need For Continuous Telemetry Monitoring , Need for Pain Control, Need for IV Antibiotics, Need for Surgery - Plan Summary Plan Summary: Correct elevated INR of 15.5 and PTT 145 sec with FFP and Vit K Will debride right eschar to evacuate pus more thoroughly from thigh when coagulation treated hopefully within 24-48 hrs Will need blood transfusion with Hb of 7.9. Will likely lose more blood during OR Continue mx of peritonits by Dr Cooper
[2018-03-08] MEDS ORDERED: CYANOCOBALAMIN (VITAMIN B-12) INJ 1000 MCG/1 ML VIAL ONE (18:59)
[2018-03-08] MEDS: METOPROLOL TARTRATE 25 MG TABLET PO SCH ×2 (19:11→22:19)
--- NOTE | 2018-03-08 23:18 | RADIOLOGY REPORT (SQ) ---
EXAM DESCRIPTION: CT HEAD WITHOUT IV CONTRAST COMPLETED DATE/TME: 03/08/2018 00:00 CLINICAL HISTORY: 83 years, Female, AMS COMPARISON: None. TECHNIQUE: Contiguous axial images of the brain were obtained without the administration of intravenous contrast. Images stored on PACS. All CT scanners at this facility use dose modulation, iterative reconstruction, and/or weight based dosing when appropriate to reduce radiation dose to as low as reasonably achievable (ALARA). [facility]: Dose Right [facility]: CareDose [facility]: Dose Right [facility]: Teradose 4D [facility]: Efficiency Network LIMITATIONS: None Findings: Brain: No acute intracranial hemorrhage. No territorial infarct. No mass effect. Moderate cerebral atrophy. Moderate periventricular and subcortical white matter hypodensity most suggestive of small vessel disease. Ventricles: Accounting for underlying cerebral atrophy, ventricular size appears within normal limits. Bones: No acute osseous finding. Paranasal sinuses: Well aerated. Mastoid air cells: Well aerated. Soft tissues: Within normal limits Coin Wrapping Machine Operator view shows no additional significant finding IMPRESSION: 1. No acute intracranial finding 2. Moderate cerebral atrophy and intracranial findings suggesting chronic microvascular disease. TECHNICAL DOCUMENTATION: Quality ID # [id number]: Final reports with documentation of one or more dose reduction techniques (e.g., Automated exposure control, adjustment of the mA and/or kV according to patient size, use of iterative reconstruction technique) 2010 [id number]- All Rights Reserved
--- NOTE | 2018-03-08 23:25 | RADIOLOGY REPORT (SQ) ---
CT CHEST, ABDOMEN AND PELVIS WITHOUT CONTRAST History: Rectal bleeding in a 83-year-old female. Comparison: Ultrasound dated 09 August 2016 Technique: CT chest: Multiple axial images are taken from the level of the thyroid down through the upper abdomen without the use of IV contrast. Images are then reconstructed in the sagittal and coronal planes. CT abdomen and pelvis: Multiple axial images are taken from the level of the lung bases down through the proximal thigh without the use of IV contrast. Images are reconstructed in the sagittal and coronal planes. Oral contrast was not administered. These exams were performed according to our departmental dose-optimization program which includes use of Automated Exposure Control, adjustment of the mA and/or kV according to patient size and/or use of iterative reconstruction technique. Findings: Evaluation is limited without the use of IV contrast. CT chest: Lungs: The lungs are adequately expanded with minimal bibasilar atelectasis. On axial image 20 there is a pleural-based 6.7 mm nodule in the posterior right upper lobe. Emphysematous changes demonstrated. There is no evidence of pneumothorax. There is no evidence of pneumomediastinum. Thyroid: The portions of the thyroid which are visualized are within normal limits. Mediastinum: The aorta measures within normal limits. There is no evidence of aortic injury. Further evaluation of vessels is limited due to lack of IV contrast. Main pulmonary artery measures within normal. Heart is enlarged. There is no pericardial effusion. There is no mediastinal lymphadenopathy. There is no hilar lymphadenopathy. Chest wall: Cardiac pacer is seen along the left side of the chest wall. Clips are seen in the left axilla. There is no axillary lymphadenopathy. Osseous: Osseous structures demonstrate degenerative change. CT Abdomen and Pelvis: Evaluation of solid organs is limited in this noncontrast exam. Allowing for this limitation: Lung bases: Lung bases demonstrate minimal atelectasis. No evidence of free air. Liver: Liver demonstrates intrahepatic biliary prominence with a punctate calcification. There is trace perihepatic free fluid. Gallbladder: Gallstones are seen within the gallbladder. Spleen: The spleen is within normal limits. Pancreas: The pancreas is within normal limits. Stomach: The stomach is within expected limits of normal given the amount of distention. Small bowel: The small bowel measures within normal limits. Small bowel mesentery: Subcentimeter lymph nodes are seen in the small bowel mesentery. Appendix: The appendix is normal seen best on axial image 80 through 84. Large bowel: Large bowel demonstrates diverticuli. Adrenal glands: The adrenal glands are within normal. Retroperitoneum: There is no retroperitoneal lymphadenopathy. Kidneys: Right kidney demonstrates a fluid attenuating region which measures 1.3 cm seen in the anterior right kidney. Left kidney demonstrates some areas of decreased attenuation which are too small to characterize. There is also a nonobstructing stone which measures 7 mm seen in the left kidney. The portions of the ureters which are visualized measure within normal limits. Bladder: The bladder is within normal limits. Aorta: The descending aorta within the [id number] measures within normal limits allowing for limitations from lack of IV contrast. Free fluid: There is free fluid seen within the cul-de-sac. A drain is coiled within this free fluid pocket. Abdominal and Pelvic Wall: Abdominal wall demonstrates the drain exiting through the left side of the pelvis. Bones: Osseous structures are within expected limits of normal for patient's age. : Uterus appears to be removed. Impression: 1. Cholelithiasis. If there is any clinical concern for acute cholecystitis, right upper quadrant ultrasound or nuclear medicine hepatobiliary scan may help better delineate. 2. Perihepatic free fluid. 3. Nonobstructing left-sided nephrocalcinosis. 4. Drain which is demonstrated within a free fluid collection within the cul-de-sac. 5. Status post hysterectomy. 6. Cardiomegaly. 7. Pulmonary nodule as detailed above. Follow-up as per Fleischner 2017 criteria: 2017 Fleischner Society Recommendations for Lung Nodule Follow-Up based on size (average of long- and short-axis diameters) <6 mm Low-Risk Patient: No routine follow-up <6 mm High-Risk Patient: Optional CT at 12 months 6-8 mm Low-Risk Patient: CT at 6-[address] at 18-24 months 6-8 mm High-Risk Patient: CT at 6-[address] at 18-24 months >8 mm Low-Risk Patient: Consider CT, PET/CT or tissue sampling >8 mm High-Risk Patient: Same as for low-risk patient
[2018-03-09] MEDS: PIPERACILLIN SODIUM/TAZOBACTAM 2.25 GM in NORMAL SALINE 50 ML IV SCH ×3 (05:02→22:09)
[2018-03-09] MEDS: HYDROMORPHONE HCL INJ/PF 2 MG/ML AMPULE IV PRN ×9 (05:25→22:09)
[2018-03-09 06:03] LABS: HEMATOCRIT 24.9 % (36.0-47.0); HEMOGLOBIN 8.3 g/dL (12.0-15.5); MEAN CORPUSCULAR HEMOGLOBIN 32.3 pg (27.0-33.4); MEAN CORPUSCULAR HGB CONC 33.4 g/dL (32.0-36.0); MEAN CORPUSCULAR VOLUME 97 fl (80-97); PLATELET COUNT 162 10^3/uL (150-450); RED BLOOD COUNT 2.57 10^6/uL (3.72-5.28); RED CELL DISTRIBUTION WIDTH 19.9 % (11.5-14.0); WHITE BLOOD COUNT 8.4 10^3/uL (4.0-10.5)
[2018-03-09 06:05] LABS: BLOOD UREA NITROGEN 53 mg/dL (7-20); CALCIUM 9.1 mg/dL (8.4-10.2); CARBON DIOXIDE 19 mmol/L (22-30); GLUCOSE 92 mg/dL (75-110); PHOSPHORUS 6.1 mg/dL (2.5-4.5); POTASSIUM 3.4 mmol/L (3.6-5.0)
[2018-03-09 06:10] LABS: CHLORIDE 93 mmol/L (98-107); SODIUM 137.9 mmol/L (137-145)
[2018-03-09 06:21] LABS: ANION GAP 26 (5-19)
[2018-03-09 06:35] LABS: ABSOLUTE MONOCYTES # (MANUAL) 0.4 10^3/uL (0.1-1.4); BAND NEUTROPHILS % (MANUAL) 1 % (3-5); BASOPHILS % (MANUAL) 0 % (0-2); EOSINOPHILS % (MANUAL) 0 % (0-6); LYMPHOCYTES % (MANUAL) 12 % (13-45); MONOCYTES % (MANUAL) 5 % (3-13); NUCLEATED RED BLOOD CELLS 1 /100 WBC (0); SEGMENTED NEUTROPHILS % (MAN) 82 % (42-78); TOTAL CELLS COUNTED 100
[2018-03-09 06:38] LABS: ANISOCYTOSIS 2+; HYPOCHROMASIA 2+; OVALOCYTES 1+; POIKILOCYTOSIS 1+; POLYCHROMASIA 1+
[2018-03-09 06:39] LABS: PLATELET COMMENT ADEQUATE; PLATELET LARGE PRESENT
[2018-03-09 07:29] LABS: GENTAMICIN-TROUGH 2.6 ug/mL (<2.0); VANCOMYCIN,TROUGH 16.3 ug/mL (5.0-20.0)
[2018-03-09 09:46] LABS: INTERNATIONAL RATION (INR) 3.26
[2018-03-09 09:51] LABS: PROTHROMBIN TIME 34.7 SEC (11.4-15.4)
--- NOTE | 2018-03-09 10:39 | PDOC PROGRESS REPORT ---
Subjective Progress Note for:: 03/09/18 Subjective:: Patient is currently doing better Patient INR is 3.26 Patients having no more bleeding Patient's pain under control Reason For Visit: SEPSIS Physical Exam Vital Signs: Temp Pulse Resp BP Pulse Ox 98.5 F 70 18 114/58 L 100 03/09/18 07:40 03/09/18 07:40 03/09/18 07:40 03/09/18 07:40 03/09/18 07:40 Intake & Output 03/08/18 03/09/18 03/10/18 06:59 06:59 06:59 Intake Total 1600 4732 Output Total 1850 3700 Balance -250 1032 Weight 67.4 kg 69.1 kg General appearance: PRESENT: no acute distress Eye exam: PRESENT: PERRLA Mouth exam: PRESENT: neck supple Respiratory exam: PRESENT: clear to auscultation milana Cardiovascular exam: PRESENT: +S1, +S2 GI/Abdominal exam: PRESENT: normal bowel sounds, soft Extremities exam: ABSENT: pedal edema Additional comments: Bilateral leg his wound is present Neurological exam: PRESENT: alert, awake Skin exam: PRESENT: dry Results Laboratory Results: 03/09/18 05:12 03/09/18 05:12 03/08/18 03/08/18 03/09/18 09:38 13:28 05:12 WBC 13.2 H 8.4 RBC 2.40 L 2.57 L Hgb 7.9 L 8.3 L Hct 24.0 L 24.9 L MCV 100 H 97 MCH 32.9 32.3 MCHC 32.9 33.4 RDW 20.0 H 19.9 H Plt Count 209 162 Seg Neutrophils % Not Reportable Not Reportable Lymphocytes % Not Reportable Not Reportable Monocytes % Not Reportable Not Reportable Eosinophils % Not Reportable Not Reportable Basophils % Not Reportable Not Reportable Absolute Neutrophils Not Reportable Not Reportable Absolute Lymphocytes Not Reportable Not Reportable Absolute Monocytes Not Reportable Not Reportable Absolute Eosinophils Not Reportable Not Reportable Absolute Basophils Not Reportable Not Reportable Sodium Potassium Chloride Carbon Dioxide Anion Gap BUN Creatinine Est GFR ( Amer) Est GFR (Non-Af Amer) Glucose Lactic Acid Calcium Phosphorus Magnesium PTH Intact Blood Type A POSITIVE Antibody Screen NEGATIVE 03/09/18 03/09/18 03/09/18 05:12 05:12 07:20 WBC RBC Hgb Hct MCV MCH MCHC RDW Plt Count Seg Neutrophils % Lymphocytes % Monocytes % Eosinophils % Basophils % Absolute Neutrophils Absolute Lymphocytes Absolute Monocytes Absolute Eosinophils Absolute Basophils Sodium 137.9 Potassium 3.4 L Chloride 93 L Carbon Dioxide 19 L Anion Gap 26 H BUN 53 H Creatinine 5.92 H Est GFR ( Amer) 8 L Est GFR (Non-Af Amer) 7 L Glucose 92 Lactic Acid 1.2 Calcium 9.1 Phosphorus 6.1 H Magnesium 1.9 PTH Intact 282.4 H Blood Type Antibody Screen Impressions: Chest X-Ray 03/07/18 16:04 IMPRESSION: HEART ENLARGED WITHOUT FAILURE. NO OTHER SIGNIFICANT RADIOGRAPHIC FINDING IN THE CHEST. Head CT 03/08/18 00:00 IMPRESSION: 1. No acute intracranial finding 2. Moderate cerebral atrophy and intracranial findings suggesting chronic microvascular disease. TECHNICAL DOCUMENTATION: Quality ID # 436: Final reports with documentation of one or more dose reduction techniques (e.g., Automated exposure control, adjustment of the mA and/or kV according to patient size, use of iterative reconstruction technique) 2010 [employer]- All Rights Reserved Assessment & Plan - Diagnosis (1) Rectal bleeding Is this a current diagnosis for this admission?: Yes Plan: Currently stop (2) End stage renal disease Is this a current diagnosis for this admission?: Yes Plan: on pd dialysis (3) Hypertension Is this a current diagnosis for this admission?: Yes Plan: Currently all stable (4) Congestive heart failure Qualifiers: Heart failure type: systolic Is this a current diagnosis for this admission?: Yes (5) Coronary artery disease Is this a current diagnosis for this admission?: Yes (6) Calciphylaxis Is this a current diagnosis for this admission?: Yes (7) Open thigh wound Qualifiers: Laterality: right Is this a current diagnosis for this admission?: Yes Plan: Follow with the surgery (8) Peritonitis Is this a current diagnosis for this admission?: Yes Plan: IV antibiotic (9) Sepsis Qualifiers: Sepsis type: sepsis due to unspecified organism Qualified Code(s): A41.9 - Sepsis, unspecified organism Is this a current diagnosis for this admission?: Yes (10) Current use of alf anticoagulation Is this a current diagnosis for this admission?: Yes Plan: His hypercoagulability currently all stable - Time Time Spent with patient: 15-24 minutes Medications reviewed and adjusted accordingly: Yes Anticipated discharge: Other Within: Other - Inpatient Certification Medical Necessity: Need Close Monitoring Due to Risk of Patient Decompensation, Need for IV Antibiotics Post Hospital Care: D/C [employer] Element Coordinator Documentation - Plan Summary Plan Summary: Current medications Discussed with the patient's family regarding the patient's current conditions
[2018-03-09] MEDS: POTASSIUM CHLORIDE 20 MEQ/15 ML UDCUP PO SCH (11:07)
[2018-03-09] MEDS: FAMOTIDINE INJ/PF 20 MG/2 ML SDV IV SCH ×2 (11:07→22:09)
[2018-03-09] MEDS: METOPROLOL TARTRATE 25 MG TABLET PO SCH ×2 (11:08→22:10)
[2018-03-09] MEDS: SILVER SULFADIAZINE 1% CREAM 400 GM TP SCH ×4 (11:09→22:10)
[2018-03-09] MEDS: MEGESTROL ACETATE SUSP 400 MG/10 ML UDCUP PO SCH (11:10)
[2018-03-09] MEDS ORDERED: VANCOMYCIN HCL 1,000 MG in DEXTROSE 5%-WATER 250 ML INJ SCH (12:30)
--- NOTE | 2018-03-09 12:54 | PDOC PROGRESS REPORT ---
Subjective Progress Note for:: 03/09/18 Subjective:: Overall the patient seems better. She does not have any more active blood red blood per rectum and she had a bowel movement and does not appear to be bloody. She was able to start to eat yesterday. Pain seems to be controlled. She does not really verbalize any other complaints. Her peritoneal dialysis is so far doing good. She is tolerating 900 mL of fill volume. Her PD effluent fluid is becoming clearer almost normal now. Are getting adequate ultrafiltration. Reason For Visit: SEPSIS Physical Exam Vital Signs: Temp Pulse Resp BP Pulse Ox 98.5 F 70 18 114/58 L 100 03/09/18 07:40 03/09/18 07:40 03/09/18 07:40 03/09/18 07:40 03/09/18 07:40 Intake & Output 03/08/18 03/09/18 03/10/18 06:59 06:59 06:59 Intake Total 1600 4732 Output Total 1850 3700 Balance -250 1032 Weight 67.4 kg 69.1 kg Exam: General appearance: PRESENT: no acute distress, somnolent but arousable, cooperative, fairly developed and fairly nourished Head exam: PRESENT: atraumatic, normocephalic Eye exam: PRESENT: conjunctiva pale, PERRLA. ABSENT: scleral icterus Neck exam: ABSENT: JVD Respiratory exam: PRESENT: Diminished breath sounds. ABSENT: crackles, rales, rhonchi, unlabored, wheezes Cardiovascular exam: PRESENT: Regular rate rhythm -+S1, +S2. Grade 2/6 systolic murmur GI/Abdominal exam: PRESENT: normal bowel sounds, soft. PD exit sites good without drainage ABSENT: guarding, mass, tenderness Extremities exam: Present: Minimal trace edema bilaterally, right knee is still mildly swollen and tender Neurological exam: PRESENT: Somnolent but arousable but is not verbalizing much. Skin exam: PRESENT: dry, warm, bilateral thigh ulcers, good eschar formation in the left without drainage, still continues to have drainage over the right thigh open wound. Results Laboratory Results: 03/09/18 05:12 03/09/18 05:12 03/08/18 03/08/18 03/09/18 09:38 13:28 05:12 WBC 13.2 H 8.4 RBC 2.40 L 2.57 L Hgb 7.9 L 8.3 L Hct 24.0 L 24.9 L MCV 100 H 97 MCH 32.9 32.3 MCHC 32.9 33.4 RDW 20.0 H 19.9 H Plt Count 209 162 Seg Neutrophils % Not Reportable Not Reportable Lymphocytes % Not Reportable Not Reportable Monocytes % Not Reportable Not Reportable Eosinophils % Not Reportable Not Reportable Basophils % Not Reportable Not Reportable Absolute Neutrophils Not Reportable Not Reportable Absolute Lymphocytes Not Reportable Not Reportable Absolute Monocytes Not Reportable Not Reportable Absolute Eosinophils Not Reportable Not Reportable Absolute Basophils Not Reportable Not Reportable Sodium Potassium Chloride Carbon Dioxide Anion Gap BUN Creatinine Est GFR ( Amer) Est GFR (Non-Af Amer) Glucose Lactic Acid Calcium Phosphorus Magnesium PTH Intact Blood Type A POSITIVE Antibody Screen NEGATIVE 03/09/18 03/09/18 03/09/18 05:12 05:12 07:20 WBC RBC Hgb Hct MCV MCH MCHC RDW Plt Count Seg Neutrophils % Lymphocytes % Monocytes % Eosinophils % Basophils % Absolute Neutrophils Absolute Lymphocytes Absolute Monocytes Absolute Eosinophils Absolute Basophils Sodium 137.9 Potassium 3.4 L Chloride 93 L Carbon Dioxide 19 L Anion Gap 26 H BUN 53 H Creatinine 5.92 H Est GFR ( Amer) 8 L Est GFR (Non-Af Amer) 7 L Glucose 92 Lactic Acid 1.2 Calcium 9.1 Phosphorus 6.1 H Magnesium 1.9 PTH Intact 282.4 H Blood Type Antibody Screen Impressions: Chest X-Ray 03/07/18 16:04 IMPRESSION: HEART ENLARGED WITHOUT FAILURE. NO OTHER SIGNIFICANT RADIOGRAPHIC FINDING IN THE CHEST. Head CT 03/08/18 00:00 IMPRESSION: 1. No acute intracranial finding 2. Moderate cerebral atrophy and intracranial findings suggesting chronic microvascular disease. TECHNICAL DOCUMENTATION: Quality ID # 436: Final reports with documentation of one or more dose reduction techniques (e.g., Automated exposure control, adjustment of the mA and/or kV according to patient size, use of iterative reconstruction technique) 2010 [employer]- All Rights Reserved Assessment & Plan - Diagnosis (1) Sepsis Qualifiers: Sepsis type: sepsis due to unspecified organism Qualified Code(s): A41.9 - Sepsis, unspecified organism Is this a current diagnosis for this admission?: Yes Plan: Multifactorial. Continue IV Zosyn. I will give the vancomycin and gentamicin intraperitoneally. (2) Peritonitis Is this a current diagnosis for this admission?: Yes Plan: I will start the intraperitoneal vancomycin today and dose it every 48 hours adjusting according to the trough level. We will recheck gentamicin trough level again tomorrow and start intraperitoneal gentamicin as appropriate. Fluid culture is still negative so far though. (3) Calciphylaxis Is this a current diagnosis for this admission?: Yes Plan: For possible debridement care of surgery by Dr. Lopez. Continue sodium thiosulfate 3 times a week with an oncology nurse. (4) Sacral ulcer Is this a current diagnosis for this admission?: Yes (5) End stage renal disease Is this a current diagnosis for this admission?: Yes Plan: Continue CAPD with 900 fill volume and the same 1.5% solution. (6) Anemia Is this a current diagnosis for this admission?: Yes Plan: We will give Procrit 40,000 units subcutaneous today 1. Agreed to transfuse with packed RBC for hemoglobin less than 8. (7) Poor nutrition Is this a current diagnosis for this admission?: Yes Plan: Start Nepro twice a day. (8) Congestive heart failure Qualifiers: Heart failure type: systolic Is this a current diagnosis for this admission?: Yes (9) Coronary artery disease Is this a current diagnosis for this admission?: Yes (10) Hypertension Is this a current diagnosis for this admission?: Yes (11) Open thigh wound Qualifiers: Laterality: right Is this a current diagnosis for this admission?: Yes (12) Rectal bleeding Is this a current diagnosis for this admission?: Yes Plan: Improved and almost resolved. Monitor PT and INR. (13) Coagulopathy Is this a current diagnosis for this admission?: Yes Plan: Due to supratherapeutic INR with warfarin for atrial fibrillation. Patient had fresh frozen plasma and vitamin K yesterday. - Time Time with patient: Greater than 35 minutes
[2018-03-09] MEDS ORDERED: SEVELAMER HCL 400 MG TABLET PO SCH (13:00)
[2018-03-09] MEDS ORDERED: EPOETIN ALFA INJ 40000 UNIT/1 ML (RENAL) SUBCUT ONE (13:30)
[2018-03-09] MEDS: ONDANSETRON 4 MG TAB.RAPDIS PO PRN (14:07)
--- NOTE | 2018-03-09 14:16 | RADIOLOGY REPORT (SQ) ---
EXAM DESCRIPTION: KNEE RIGHT 3 VIEWS COMPLETED DATE/TIME: 03/09/2018 1:27 pm REASON FOR STUDY: Right knee swelling/effusion/pain COMPARISON: None. NUMBER OF VIEWS: Four views. TECHNIQUE: AP, lateral, and sunrise patella radiographic images acquired of the right knee. LIMITATIONS: None. FINDINGS: MINERALIZATION: Osteopenia. BONES: No acute fracture or dislocation. No worrisome bone lesions. Patellofemoral degenerative laura nges are present noting loss of lateral joint space. JOINT: No effusion. SOFT TISSUES: No soft tissue swelling. No radio-opaque foreign body. OTHER: No other significant finding. IMPRESSION: Patellofemoral degenerative changes. TECHNICAL DOCUMENTATION: JOB ID: [id number] [employer]- All Rights Reserved Reading location - IP/workstation name: [email or web address]
[2018-03-09 14:44] LABS: HEMATOCRIT 24.8 % (36.0-47.0); HEMOGLOBIN 8.3 g/dL (12.0-15.5); MEAN CORPUSCULAR HEMOGLOBIN 32.4 pg (27.0-33.4); MEAN CORPUSCULAR HGB CONC 33.4 g/dL (32.0-36.0); MEAN CORPUSCULAR VOLUME 97 fl (80-97); PLATELET COUNT 172 10^3/uL (150-450); RED BLOOD COUNT 2.56 10^6/uL (3.72-5.28); RED CELL DISTRIBUTION WIDTH 20.2 % (11.5-14.0)
[2018-03-09 14:45] LABS: INTERNATIONAL RATION (INR) 3.41
[2018-03-09] MEDS ORDERED: VANCOMYCIN HCL INJ 1000 MG VIAL IPER SCH (15:00)
[2018-03-09 15:01] LABS: BLOOD UREA NITROGEN 54 mg/dL (7-20); CALCIUM 8.7 mg/dL (8.4-10.2); GLUCOSE 96 mg/dL (75-110); POTASSIUM 4.1 mmol/L (3.6-5.0)
[2018-03-09 15:06] LABS: CARBON DIOXIDE 22 mmol/L (22-30); CHLORIDE 94 mmol/L (98-107); SODIUM 137.5 mmol/L (137-145)
[2018-03-09 15:07] LABS: ANION GAP 22 (5-19)
[2018-03-09 15:21] LABS: ABSOLUTE LYMPHOCYTES# (MANUAL) 1.1 10^3/uL (0.5-4.7); ABSOLUTE MONOCYTES # (MANUAL) 0.6 10^3/uL (0.1-1.4); ABSOLUTE NEUTROPHILS# (MANUAL) 7.1 10^3/uL (1.7-8.2); BASOPHILS % (MANUAL) 1 % (0-2); EOSINOPHILS % (MANUAL) 1 % (0-6); LYMPHOCYTES % (MANUAL) 12 % (13-45); MONOCYTES % (MANUAL) 7 % (3-13); SEGMENTED NEUTROPHILS % (MAN) 79 % (42-78); TOTAL CELLS COUNTED 100
[2018-03-09 15:22] LABS: ANISOCYTOSIS 2+; OVALOCYTES SLIGHT; PLATELET COMMENT ADEQUATE; POIKILOCYTOSIS SLIGHT; POLYCHROMASIA SLIGHT
[2018-03-09] MEDS: SEVELAMER HCL 800 MG TABLET PO SCH (19:13)
--- NOTE | 2018-03-09 23:08 | PDOC PROGRESS REPORT ---
Subjective Progress Note for:: 03/09/18 Subjective:: pains right thigh calciphylaxis area Reason For Visit: SEPSIS Physical Exam Vital Signs: Temp Pulse Resp BP Pulse Ox 98.5 F 72 17 127/76 H 100 03/09/18 19:43 03/09/18 22:00 03/09/18 19:43 03/09/18 22:00 03/09/18 19:43 Intake & Output 03/08/18 03/09/18 03/10/18 06:59 06:59 06:59 Intake Total 1600 4732 3037 Output Total 1850 3700 2500 Balance -250 1032 537 Weight 67.4 kg 69.1 kg Exam: Undergoing PD right now. More alert and oriented. Right thigh eschar with minimal purulent discharge ,mildly tender. Results Laboratory Results: 03/09/18 14:15 03/09/18 14:15 03/08/18 03/09/18 03/09/18 09:38 05:12 05:12 WBC 8.4 RBC 2.57 L Hgb 8.3 L Hct 24.9 L MCV 97 MCH 32.3 MCHC 33.4 RDW 19.9 H Plt Count 162 Seg Neutrophils % Not Reportable Lymphocytes % Not Reportable Monocytes % Not Reportable Eosinophils % Not Reportable Basophils % Not Reportable Absolute Neutrophils Not Reportable Absolute Lymphocytes Not Reportable Absolute Monocytes Not Reportable Absolute Eosinophils Not Reportable Absolute Basophils Not Reportable Sodium 137.9 Potassium 3.4 L Chloride 93 L Carbon Dioxide 19 L Anion Gap 26 H BUN 53 H Creatinine 5.92 H Est GFR ( Amer) 8 L Est GFR (Non-Af Amer) 7 L Glucose 92 Lactic Acid Calcium 9.1 Phosphorus 6.1 H Magnesium 1.9 PTH Intact Blood Type A POSITIVE Antibody Screen NEGATIVE 03/09/18 03/09/18 03/09/18 05:12 07:20 14:15 WBC 9.0 RBC 2.56 L Hgb 8.3 L Hct 24.8 L MCV 97 MCH 32.4 MCHC 33.4 RDW 20.2 H Plt Count 172 Seg Neutrophils % Not Reportable Lymphocytes % Not Reportable Monocytes % Not Reportable Eosinophils % Not Reportable Basophils % Not Reportable Absolute Neutrophils Not Reportable Absolute Lymphocytes Not Reportable Absolute Monocytes Not Reportable Absolute Eosinophils Not Reportable Absolute Basophils Not Reportable Sodium Potassium Chloride Carbon Dioxide Anion Gap BUN Creatinine Est GFR ( Amer) Est GFR (Non-Af Amer) Glucose Lactic Acid 1.2 Calcium Phosphorus Magnesium PTH Intact 282.4 H Blood Type Antibody Screen 03/09/18 14:15 WBC RBC Hgb Hct MCV MCH MCHC RDW Plt Count Seg Neutrophils % Lymphocytes % Monocytes % Eosinophils % Basophils % Absolute Neutrophils Absolute Lymphocytes Absolute Monocytes Absolute Eosinophils Absolute Basophils Sodium 137.5 Potassium 4.1 Chloride 94 L Carbon Dioxide 22 Anion Gap 22 H BUN 54 H Creatinine 5.96 H Est GFR ( Amer) 8 L Est GFR (Non-Af Amer) 7 L Glucose 96 Lactic Acid Calcium 8.7 Phosphorus Magnesium PTH Intact Blood Type Antibody Screen 03/08/18 08:25 Hip - Decubitis Ulcer Gram Stain - Final Impressions: Chest X-Ray 03/07/18 16:04 IMPRESSION: HEART ENLARGED WITHOUT FAILURE. NO OTHER SIGNIFICANT RADIOGRAPHIC FINDING IN THE CHEST. Head CT 03/08/18 00:00 IMPRESSION: 1. No acute intracranial finding 2. Moderate cerebral atrophy and intracranial findings suggesting chronic microvascular disease. TECHNICAL DOCUMENTATION: Quality ID # 436: Final reports with documentation of one or more dose reduction techniques (e.g., Automated exposure control, adjustment of the mA and/or kV according to patient size, use of iterative reconstruction technique) 2010 [employer]- All Rights Reserved Knee X-Ray 03/09/18 00:00 IMPRESSION: Patellofemoral degenerative changes. Assessment & Plan - Diagnosis (1) coagulopathy due to coumadin Is this a current diagnosis for this admission?: Yes - Time Time Spent with patient: 15-24 minutes - Plan Summary Plan Summary: INR/PT and PTT still elevated. No Gi bleed since last night Will debride right thigh eschar from Calciphylaxis when coagulation normalizes
[2018-03-10] MEDS: PIPERACILLIN SODIUM/TAZOBACTAM 2.25 GM in NORMAL SALINE 50 ML IV SCH ×3 (05:18→23:06)
[2018-03-10 05:38] LABS: ABSOLUTE LYMPHOCYTES (AUTO) 1.3 10^3/uL (0.5-4.7); ABSOLUTE MONOCYTES (AUTO) 0.7 10^3/uL (0.1-1.4); BASOPHILS % (AUTO) 0.1 % (0-2); EOSINOPHILS % (AUTO) 0.1 % (0-6); HEMATOCRIT 25.6 % (36.0-47.0); HEMOGLOBIN 8.4 g/dL (12.0-15.5); MEAN CORPUSCULAR HEMOGLOBIN 31.9 pg (27.0-33.4); MEAN CORPUSCULAR HGB CONC 32.8 g/dL (32.0-36.0); MEAN CORPUSCULAR VOLUME 97 fl (80-97); PLATELET COUNT 170 10^3/uL (150-450); RED BLOOD COUNT 2.63 10^6/uL (3.72-5.28); RED CELL DISTRIBUTION WIDTH 20.5 % (11.5-14.0); SEGMENTED NEUTROPHILS % (AUTO) 77.8 % (42-78); TOTAL CELLS COUNTED % (AUTO) 100 %
[2018-03-10 05:47] LABS: INTERNATIONAL RATION (INR) 3.54; PROTHROMBIN TIME 37.1 SEC (11.4-15.4)
[2018-03-10 05:49] LABS: PARTIAL THROMBOPLASTIN TIME 81.2 SEC (23.5-35.8)
[2018-03-10 06:06] LABS: BLOOD UREA NITROGEN 55 mg/dL (7-20); CALCIUM 8.6 mg/dL (8.4-10.2); GLUCOSE 91 mg/dL (75-110); PHOSPHORUS 5.5 mg/dL (2.5-4.5); POTASSIUM 3.5 mmol/L (3.6-5.0)
[2018-03-10 06:09] LABS: GENTAMICIN-TROUGH 1.4 ug/mL (<2.0)
[2018-03-10 06:11] LABS: CARBON DIOXIDE 19 mmol/L (22-30); CHLORIDE 95 mmol/L (98-107); SODIUM 137.5 mmol/L (137-145)
[2018-03-10 06:16] LABS: ANION GAP 24 (5-19)
[2018-03-10] MEDS: HYDROMORPHONE HCL INJ/PF 2 MG/ML AMPULE IV PRN ×8 (07:18→19:19)
--- NOTE | 2018-03-10 07:57 | PDOC CONSULTATION ---
History of Present Illness Admission Date/PCP: 03/07/18 21:13 KYLER SHANNON MD Patient complains of: Right knee pain History of Present Illness: NANCY BIRMINGHAM is a 83 year old female currently lying in bed. According to nursing staff she had this new onset right knee pain. According to the family as per the nurse the pain started about 1 week ago. Denies specific injury. She does complain of pain with attempted motion. Patient currently admitted for calciphylaxis and elevated coagulation numbers. Patient denies numbness or tingling. Does complain of pain in the right thigh as well. Past Medical History Cardiac Medical History: Reports: Atrial Fibrillation, Congestive Heart Failure , Coronary Artery Disease, Myocardial Infarction - 1994, Hyperlipidema, Hypertension - MEDS, Peripheral Vascular Disease Pulmonary Medical History: Reports: Asthma - LAST ATTACK 3MO, Sleep Apnea Neurological Medical History: Reports: Seizures Endocrine Medical History: Reports: Diabetes Mellitus Type 2, Hypothyroidism Renal/ Medical History: Reports: End Stage Renal Disease, Nephrolithiasis, Other - Calciphylaxis GI Medical History: Reports: Gastroesophageal Reflux Disease, Hiatal Hernia, Other - Irritable bowel syndrome Denies: Hepatitis Musculoskeltal Medical History: Reports: Arthritis, Fibromyalgia, Gout, Other - Osteoporosis Psychiatric Medical History: Denies: Depression Hematology: Reports: Anemia Denies: Sickle Cell Disease Past Surgical History Past Surgical History: Reports: Appendectomy, Hysterectomy, Internal Defibrillator, Pacemaker, Other - AV node ablation, Denies: Amputation, Mastectomy Social History Lives with: Family Smoking Status: Never Smoker Frequency of Alcohol Use: None Hx Recreational Drug Use: No Hx Prescription Drug Abuse: No - Advance Directive Resuscitation Status: Full Code Family History Family History: Reviewed & Not Pertinent Parental Family History Reviewed: No Children Family History Reviewed: No Sibling(s) Family History Reviewed.: No Medication/Allergy Home Medications: Allopurinol [Zyloprim 100 mg Tablet] 100 mg PO DAILY 03/08/18 Epoetin Perfecto [Procrit Inj 40,000 Unit/1 Ml Vial (Esrd-Subq)] 40,000 unit SUBCUT ASDIR PRN 03/08/18 Fentanyl [Duragesic 100 Mcg/Hr Transdermal Patch] 1 patch TD Q3D 03/08/18 Furosemide [Lasix 80 mg Tablet] 80 mg PO QAM 03/08/18 Hydromorphone HCl [Dilaudid 2 mg Tablet] 4 mg PO Q2HP PRN 03/08/18 Lactulose [Constulose 10 gm/15 mL Oral Solution] 20 gm PO DAILYP PRN 03/08/18 Lidocaine [Lidoderm 5% (700 mg) Transdermal Patch] 2 patch TP DAILY MDD ONE FOR EACH HIP 03/08/18 Magnesium Oxide [Mag-Ox 400 mg Tablet] 400 mg PO DAILY 03/08/18 Megestrol Acetate 200 mg PO DAILY 03/08/18 Metoprolol Tartrate [Lopressor 25 mg Tablet] 12.5 mg PO Q12 03/08/18 Olopatadine HCl [Patanol 0.1% Oph Soln 5 Ml Bottle] 1 drop OU BID 03/08/18 Potassium Chloride [Kaon-Cl 20 Meq/15 Ml Udcup] 40 meq PO DAILY MDD FROM [facility] 03/08/18 Sodium Thiosulfate 12.5 Gm In Ns 50 Ml 12.5 gm IV TUTHFR@1000 03/08/18 Warfarin Sodium [Coumadin 1 mg Tablet] 2 mg PO DAILY MDD FROM [facility] 01/29/1803/08 Allergies/Adverse Reactions: clindamycin [Clindamycin] Allergy (Verified 03/27/17 16:25) codeine [Codeine] Allergy (Verified 03/27/17 16:25) diltiazem HCl [From Cardizem] Allergy (Verified 03/27/17 16:25) Penicillins Allergy (Verified 03/27/17 16:25) Sulfa (Sulfonamide Antibiotics) Allergy (Verified 03/27/17 16:25) Review of Systems ROS unobtainable: Due to mental status Physical Exam Vital Signs: Temp Pulse Resp BP Pulse Ox 98.1 F 70 17 129/60 H 100 03/10/18 03:26 03/10/18 03:30 03/10/18 03:26 03/10/18 03:30 03/10/18 03:26 Intake & Output 03/09/18 03/10/18 03/11/18 06:59 06:59 06:59 Intake Total 4732 4137 Output Total 3700 3100 Balance 1032 1037 Weight 69.1 kg 72.4 kg General appearance: PRESENT: no acute distress, disheveled Head exam: PRESENT: atraumatic, normocephalic Eye exam: PRESENT: EOMI, PERRLA Ear exam: PRESENT: normal external ear exam Mouth exam: PRESENT: dry mucosa Teeth exam: PRESENT: poor dentation Neck exam: PRESENT: full ROM. ABSENT: carotid bruit, JVD, lymphadenopathy, thyromegaly Respiratory exam: PRESENT: unlabored Cardiovascular exam: PRESENT: RRR. ABSENT: diastolic murmur, rubs, systolic murmur Pulses: PRESENT: normal dorsalis pedis pul, +1 pedal pulses bilateral Vascular exam: PRESENT: normal capillary refill GI/Abdominal exam: PRESENT: soft. ABSENT: distended, guarding, mass, organolmegaly, rebound, tenderness Rectal exam: PRESENT: deferred Musculoskeletal exam: PRESENT: other - Right knee: Mild swelling along the suprapatellar area. No erythema. No notable increased warmth compared to left knee. Patient has crepitation with patellar grind. Pain with knee range of motion. No calf tenderness. Proximal aspect of the right thigh demonstrates necrotic erythema along the lateral aspect no streaking erythema proximally or distally. Neurological exam: PRESENT: alert, awake, abnormal gait. ABSENT: motor sensory deficit Psychiatric exam: PRESENT: appropriate affect, normal mood. ABSENT: homicidal ideation, suicidal ideation Skin exam: PRESENT: dry, intact, warm. ABSENT: cyanosis, rash Results Laboratory Results: 03/10/18 05:20 03/10/18 05:20 03/09/18 03/09/18 03/09/18 07:20 14:15 14:15 WBC 9.0 RBC 2.56 L Hgb 8.3 L Hct 24.8 L MCV 97 MCH 32.4 MCHC 33.4 RDW 20.2 H Plt Count 172 Seg Neutrophils % Not Reportable Lymphocytes % Not Reportable Monocytes % Not Reportable Eosinophils % Not Reportable Basophils % Not Reportable Absolute Neutrophils Not Reportable Absolute Lymphocytes Not Reportable Absolute Monocytes Not Reportable Absolute Eosinophils Not Reportable Absolute Basophils Not Reportable Sodium 137.5 Potassium 4.1 Chloride 94 L Carbon Dioxide 22 Anion Gap 22 H BUN 54 H Creatinine 5.96 H Est GFR ( Amer) 8 L Est GFR (Non-Af Amer) 7 L Glucose 96 Lactic Acid Calcium 8.7 Phosphorus Magnesium PTH Intact 282.4 H 03/10/18 03/10/18 03/10/18 05:20 05:20 05:20 WBC 9.0 RBC 2.63 L Hgb 8.4 L Hct 25.6 L MCV 97 MCH 31.9 MCHC 32.8 RDW 20.5 H Plt Count 170 Seg Neutrophils % 77.8 Lymphocytes % 14.0 Monocytes % 8.0 Eosinophils % 0.1 Basophils % 0.1 Absolute Neutrophils 7.0 Absolute Lymphocytes 1.3 Absolute Monocytes 0.7 Absolute Eosinophils 0.0 Absolute Basophils 0.0 Sodium 137.5 Potassium 3.5 L Chloride 95 L Carbon Dioxide 19 L Anion Gap 24 H BUN 55 H Creatinine 5.83 H Est GFR ( Amer) 8 L Est GFR (Non-Af Amer) 7 L Glucose 91 Lactic Acid 1.2 Calcium 8.6 Phosphorus 5.5 H Magnesium 1.8 PTH Intact 03/08/18 08:25 Hip - Decubitis Ulcer Gram Stain - Final Impressions: Chest X-Ray 03/07/18 16:04 IMPRESSION: HEART ENLARGED WITHOUT FAILURE. NO OTHER SIGNIFICANT RADIOGRAPHIC FINDING IN THE CHEST. Head CT 03/08/18 00:00 IMPRESSION: 1. No acute intracranial finding 2. Moderate cerebral atrophy and intracranial findings suggesting chronic microvascular disease. TECHNICAL DOCUMENTATION: Quality ID # 436: Final reports with documentation of one or more dose reduction techniques (e.g., Automated exposure control, adjustment of the mA and/or kV according to patient size, use of iterative reconstruction technique) 2010 [employer]- All Rights Reserved Knee X-Ray 03/09/18 00:00 IMPRESSION: Patellofemoral degenerative changes. Status: Image reviewed by me - I have reviewed patient's radiographs which demonstrate moderate-severe degenerative changes of the patellofemoral joint. No significant effusion appreciated. Assessment & Plan - Diagnosis (1) Patellofemoral arthralgia of right knee Is this a current diagnosis for this admission?: Yes Plan: Patient has findings of patellofemoral arthritis on the right knee. There is mild effusion however I do not feel the effusion is significant enough to warrant aspiration furthermore given patient's coagulopathy and other medical issues of concern aspiration could actually exacerbate her condition. She would benefit from an intra-articular cortisone injection which can be done either as inpatient or outpatient once the majority of her medical issues have resolved. Other options include oral NSAIDs. Lastly if patient's pain persists despite conservative treatment would recommend MRI. (2) Calciphylaxis Is this a current diagnosis for this admission?: Yes (3) Coagulopathy Is this a current diagnosis for this admission?: Yes
[2018-03-10] MEDS ORDERED: EPOETIN ALFA INJ 40000 UNIT/1 ML (RENAL) SUBCUT PRN (08:36)
[2018-03-10] MEDS: SILVER SULFADIAZINE 1% CREAM 400 GM TP SCH ×4 (10:00→23:07)
[2018-03-10] MEDS: ALLOPURINOL 100 MG TABLET PO SCH (11:26)
[2018-03-10] MEDS: FUROSEMIDE 80 MG TABLET PO SCH (11:26)
[2018-03-10] MEDS: METOPROLOL TARTRATE 25 MG TABLET PO SCH ×2 (11:26→23:06)
[2018-03-10] MEDS: FAMOTIDINE INJ/PF 20 MG/2 ML SDV IV SCH (11:27)
[2018-03-10] MEDS: POTASSIUM CHLORIDE 20 MEQ/15 ML UDCUP PO SCH (11:27)
[2018-03-10] MEDS: MAGNESIUM OXIDE 400 MG TABLET PO SCH (11:27)
[2018-03-10] MEDS: MEGESTROL ACETATE SUSP 400 MG/10 ML UDCUP PO SCH (11:28)
[2018-03-10] MEDS: OLOPATADINE HCL 0.1% OPH SOLN 5 ML OU SCH ×2 (11:28→19:20)
[2018-03-10] MEDS: SEVELAMER HCL 800 MG TABLET PO SCH ×3 (11:29→17:16)
[2018-03-10] MEDS: LIDOCAINE 5% (700 MG) TRANSDERMAL ADH..PATCH TP SCH (11:29)
--- NOTE | 2018-03-10 12:24 | HISTORY AND PHYSICAL E ---
History and Physical NAME: NANCY BIRMINGHAM : 1935 AGE: 83Y ADMITTED: 03/07/2018 ROOM: 335 HISTORY OF THE PRESENT ILLNESS: This is an 83-year-old female with end-stage renal disease on peritoneal dialysis with a history of hypertension, history of congestive heart failure, history of coronary artery disease, history of calciphylaxis; presented to the emergency department, accompanied with the son and the [id number], complaining of fatigue, decreased appetite, and cloudy peritoneal fluid. Son stated that he drained the fluid from the patient this morning and took it to the dialysis center where it was noted to be more cloudy in appearance. So they were directed to the emergency department for further evaluation and concern of peritonitis. Son also reported that the patient has more fatigue lately and has a decreased appetite along with vomiting. He denies any fever. The patient also recently diagnosed with calciphylaxis and family expressed concern of the wound on the right thigh. According to the patient's family the patient has an eschar wound in the right and upper thigh and noticed more pus and more coming out. The patient also noticed, according to the [id number], there was some constipation issues and sees some blood coming out on the rectal area too. The patient was found to be more leukocytosis with the white count was 18.3, hemoglobin was 9.4, and the patient has a significant purulent eschars on the right lower extremity. The patient at this point given vancomycin and gentamicin, and Zosyn. The patient was admitted to the IMCU. When I saw the patient on the floor the patient had fresh red blood coming from the rectal area. The patient was still complaining of a lot of pain. The patient required a lot of pain medications. The patient is currently on a peritoneal dialysis. The family is at the bedside. The patient has overall all body ache pains. PAST MEDICAL HISTORY: History of end-stage renal on peritoneal dialysis, history of atrial fibrillation, history of congestive heart failure, history of coronary artery disease, history of asthma, history of diabetes mellitus type 2, history of stomach ulcers, history of hiatal hernia, history of cardiac surgery bypass, pacemaker/defibrillator, history of hysterectomy, history of open heart surgery in 1994, history of pacemakers. PAST SURGICAL HISTORY: As above. ALLERGIES: CLINDAMYCIN, CODEINE, , PENICILLINS, SULFA. CURRENT MEDICATIONS: 1. Fentanyl patch, 1 patch daily. 2. Hydromorphone 4 mg q.2 p.r.n. 3. Coumadin 1 mg p.o. daily. 4. Sodium thiosulfate 12.5 mg IV Saturday, , and Saturday. 5. Potassium 20 mEq daily. 6. Patanol eye drop. 7. Metoprolol 25 mg p.o. daily. 8. Megace daily. 9. Lidocaine patch. 10. Lactulose twice a day. 11. Lasix 80 mg p.o. daily. 12. Procrit injections. 13. Allopurinol 100 mg daily. PHYSICAL EXAMINATION: VITAL SIGNS: Blood pressure 142/70, temperature 98.6, pulse 69, respirations 20, O2 saturation 96% on room air. GENERAL: The patient is alert, awake, but a lot of pain, no acute distress. HEAD AND NECK: Normocephalic. PERRLA. LUNGS: No wheezing, no rales, no rhonchi. HEART: S1, S2 is present. ABDOMEN: Soft. Bowel sounds present. Tenderness is present. EXTREMITIES: On the right thigh there is big eschars with purulent discharge which is present. The patient's extremities; no edema. NEUROLOGIC: Alert, awake. SKIN: The patient's skin is warm, dry. DIAGNOSTIC STUDIES: Patient's lab diagnostics; WBC is 18.3, hemoglobin is 9.4, platelet is 249. Sodium is 140, potassium is 3.7, BUN is 54, creatinine is 6.76. The patient's chest x-ray; his heart enlarged without failure. The patient's other labs: Patient's peritoneal fluid; color is yellow, appearance is hazy, slightly viscous, WBC is 19,000; RBC is 310. Stool occult blood is positive. ASSESSMENT: 1. Acute peritonitis. 2. End-stage renal disease with hemodialysis. 3. Gastrointestinal bleed. 4. Hypertension. 5. Congestive heart failure. 6. Anemia of chronic disease. 7. Sepsis due to the peritonitis with the chronic eschar wound. 8. Chronic pain syndrome. PLAN: The plan is at this point admit the patient in the IMCU, start the patient on IV antibiotic vancomycin and gentamicin per nephrology. The patient already received a Zosyn dose. The patient has obvious blood coming from the rectum, we will wait for the surgical consult and nephrology consults. Very extensive discussion with the patient's family at the bedside regarding the patient's current condition with multiple complications. I hope the patient continues to improve hopefully. If the patient needs to be transferred to a tertiary center for further evaluation while the GI is not available if the surgeon is unable to do it. More than 45 minutes spent examining the patient, reviewing the records. DICTATING PHYSICIAN: TUCKER HEWITT M.D. [id number] PHY#: [id number] ID: [id number] JOB#: [id number] ACCT: [id number] cc:TUCKER HEWITT M.D. >
[2018-03-10] MEDS: ONDANSETRON 4 MG TAB.RAPDIS PO PRN (14:36)
--- NOTE | 2018-03-10 14:36 | PROGRESS NOTE E ---
Progress Note NAME: NANCY BIRMINGHAM : 1935 AGE: 83Y DATE: 03/10/2018 ROOM: 335 DIAGNOSIS: SKIN NECROSIS. SUBJECTIVE: The patient is an 83-year-old woman with a diagnosis of skin necrosis, anemia of chronic disease, renal insufficiency on hemodialysis, thrombocytopenia. She presents with worsening of skin necrosis, possible infection. She is presenting on antibiotics, *------* clinically. I was asked to see her because of abnormal blood counts. She has a history of anemia and thrombocytopenia. She tells me at the bedside that she is feeling a little bit better. She just received pain medication and was unable to completely give me a detailed history. OBJECTIVE: She is an elderly woman, chronically ill looking. LABORATORY: From March 10: White count 9.0, hemoglobin 8.4, platelet count 170. Electrolytes: Sodium 137, potassium 3.5. Magnesium 1.8. BUN 55, creatinine 5.8. The patient is an 83-year-old woman who has end-stage renal disease on dialysis. She has had skin necrosis which initially was possibly secondary to Coumadin necrosis; however, the diagnosis is calciphylaxis cutis. She has been managed by her primary care physician. She also has had anemia which is most probably multifactorial, combination of renal disease and also chronic disease. Platelet counts in the hospital have improved. As an outpatient, her platelet count has been in the low 100s. IMPRESSION/PLAN: The patient is an 83-year-old with end-stage renal disease, chronic ulcers felt to be related to her dialysis, calciphylaxis cutis. I agree with her current management. If her hemoglobin drops to less than 8, she might need to be transfused. She most probably will benefit from Procrit given weekly 20,000 units. I will be glad to see her as an outpatient as previously scheduled following her discharge. Thank you for this consultation and for allowing me to be part of her care. DICTATING PHYSICIAN: KYLER SHANNON M.D. [id number] PHY#: [id number] ID: [id number] JOB#: [id number] ACCT: [id number] cc: >
--- NOTE | 2018-03-10 17:47 | Progress Note ---
Provider Note Provider Note: ID Consult Note Asked to review patient's chart by Pharmacy. Pt not seen or examined. Ms. Arevalo is an 83 year old woman with PMH including ESRD on PD, calciphylaxis , HTN, CHF, CAD, AF on anticoagulation, s/p PPM. She was admitted on 03/07 with increased fatigue, decreased appetite, vomiting, and cloudy peritoneal fluid. The patient's family also expressed concern regarding a R upper thigh wound with purulent appearing discharge. On admission, pt was afebrile, she had 2/6 ROSSANA appreciated, abdominal tenderness to palpation over LLQ with no evidence of infection involving exit site of PD catheter, and eschar to anterior aspect of right thigh with purulent discharge expressible with palpation. WBC on admission was 18k. Blood cultures were obtained and both sets drawn 40 minutes apart later grew Enterococcus faecalis (sensitive to penicillin, ampicillin, vancomycin, daptomycin, and synergy with gentamicin). Peritoneal fluid was sent for analysis and was found to have 19k WBCs, 98% PMNs, and growth of Enterococcus faecalis also. R thigh wound was swabbed on 03/08 and Gram stain showed rare PMNs, 3+ GPCs and 3+ GNRs with wound culture growing 4+ Proteus vulgaris (resistant to tetracycline, cefazolin, ampicillin), 4+ GNRs of a second morphology, 2+ GNRs of a 3rd morphology and 1+ skin scar. Pt has been treated with IP administration of vancomycin and IV Zosyn. Peritoneal fluid is reported to be less cloudy. Leukocytosis has resolved. Impression/Recommendations 1. Enterococcus faecalis bacteremia, suspected to be secondary to PD associated peritonitis with the same organism. R/O endocarditis 2. Suspected skin/soft tissue infection R thigh - According to provider notes, patient is suspected to have sepsis secondary to both peritonitis and bacteremia as well as R thigh skin/soft tissue infection at site of her calciphylaxis ulcer, which has a superficial wound swab with multiple gram negative organisms growing from it. - IV Zosyn for now is broader than needed for the Enterococcal bacteremia and peritonitis but acceptable considering the calciphylaxis ulcer that is suspected to be infected - Enterococcal bacteremia in the presence of a pacemaker and murmur is concerning for an increased risk of endocarditis. Recommend starting with TTE to evaluate for vegetations and repeating blood cultures, but consider transfer to facility where KARIS is able to be performed to further evaluate PPM leads and for greater sensitivity in detection of a vegetation. Even though source of bacteremia might be known to be peritonitis, it does not preclude the possibility of subsequently seeding a valve or PPM lead. Noman Galeano MD [facility] Infectious Diseases pager [phone]
[2018-03-10] MEDS ORDERED: VANCOMYCIN HCL 750 MG in DEXTROSE 5%-WATER 250 ML IV SCH (18:00)
[2018-03-10] MEDS ORDERED: WATER IV SCH (18:00)
[2018-03-10] MEDS ORDERED: GENTAMICIN SULFATE IV SCH (18:00)
[2018-03-10] MEDS ORDERED: DEXTROSE 5% IV SCH (18:00)
--- NOTE | 2018-03-10 18:31 | PDOC PROGRESS REPORT ---
Subjective Progress Note for:: 03/10/18 Subjective:: Patient was admitted for fatigue, weakness, and cloudy peritoneal dialysis fluid suggestive of peritonitis. Her hospitalization is further compounded with excessive anticoagulation status on Coumadin therapy upon admission. There is concern for possible left knee joint infection and infected sacral pressure ulcer. She reported feeling a little better at the time of my bedside evaluation today. No chest pain or difficulty with breathing. No nausea or vomiting but po intake remain a challenge. No definite abdominal pain. She is currently on pain management medication for generalized joints aches and pain with history of calciphylaxis. Interval notes and events appreciated. Reason For Visit: SEPSIS Physical Exam Vital Signs: Temp Pulse Resp BP Pulse Ox 98.1 F 70 17 129/60 H 100 03/10/18 03:26 03/10/18 03:30 03/10/18 03:26 03/10/18 03:30 03/10/18 03:26 Intake & Output 03/09/18 03/10/18 03/11/18 06:59 06:59 06:59 Intake Total 4732 4137 Output Total 3700 3100 Balance 1032 1037 Weight 69.1 kg 72.4 kg General appearance: PRESENT: no acute distress, disheveled - chronically ill looking Head exam: PRESENT: atraumatic, normocephalic Eye exam: PRESENT: conjunctiva pink, EOMI, PERRLA. ABSENT: scleral icterus Ear exam: PRESENT: normal external ear exam Mouth exam: PRESENT: dry mucosa Teeth exam: PRESENT: poor dentation Respiratory exam: PRESENT: clear to auscultation milana, decreased breath sounds - at lung bases Cardiovascular exam: PRESENT: RRR, systolic murmur. ABSENT: diastolic murmur, rubs Murmur grade: 3 Pulses: PRESENT: +1 pedal pulses bilateral Vascular exam: PRESENT: normal capillary refill. ABSENT: pallor GI/Abdominal exam: PRESENT: normal bowel sounds, soft. ABSENT: ascites, mass, rebound, tenderness Rectal exam: PRESENT: deferred Extremities exam: ABSENT: pedal edema Musculoskeletal exam: PRESENT: deformity - related to multiple joint involvement with arthritis, tenderness - multiple sports tenderness Neurological exam: PRESENT: alert, awake - and appropriate in simple responses Psychiatric exam: PRESENT: appropriate affect. 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, warm, other - unstagable eschar covered sacral and right thight lateral regions of pressure ulcer Results Laboratory Results: 03/10/18 05:20 03/10/18 05:20 03/09/18 03/09/18 03/10/18 14:15 14:15 05:20 WBC 9.0 9.0 RBC 2.56 L 2.63 L Hgb 8.3 L 8.4 L Hct 24.8 L 25.6 L MCV 97 97 MCH 32.4 31.9 MCHC 33.4 32.8 RDW 20.2 H 20.5 H Plt Count 172 170 Seg Neutrophils % Not Reportable 77.8 Lymphocytes % Not Reportable 14.0 Monocytes % Not Reportable 8.0 Eosinophils % Not Reportable 0.1 Basophils % Not Reportable 0.1 Absolute Neutrophils Not Reportable 7.0 Absolute Lymphocytes Not Reportable 1.3 Absolute Monocytes Not Reportable 0.7 Absolute Eosinophils Not Reportable 0.0 Absolute Basophils Not Reportable 0.0 Sodium 137.5 Potassium 4.1 Chloride 94 L Carbon Dioxide 22 Anion Gap 22 H BUN 54 H Creatinine 5.96 H Est GFR ( Amer) 8 L Est GFR (Non-Af Amer) 7 L Glucose 96 Lactic Acid Calcium 8.7 Phosphorus Magnesium 03/10/18 03/10/18 05:20 05:20 WBC RBC Hgb Hct MCV MCH MCHC RDW Plt Count Seg Neutrophils % Lymphocytes % Monocytes % Eosinophils % Basophils % Absolute Neutrophils Absolute Lymphocytes Absolute Monocytes Absolute Eosinophils Absolute Basophils Sodium 137.5 Potassium 3.5 L Chloride 95 L Carbon Dioxide 19 L Anion Gap 24 H BUN 55 H Creatinine 5.83 H Est GFR ( Amer) 8 L Est GFR (Non-Af Amer) 7 L Glucose 91 Lactic Acid 1.2 Calcium 8.6 Phosphorus 5.5 H Magnesium 1.8 03/08/18 08:25 Hip - Decubitis Ulcer Gram Stain - Final Impressions: Chest X-Ray 03/07/18 16:04 IMPRESSION: HEART ENLARGED WITHOUT FAILURE. NO OTHER SIGNIFICANT RADIOGRAPHIC FINDING IN THE CHEST. Head CT 03/08/18 00:00 IMPRESSION: 1. No acute intracranial finding 2. Moderate cerebral atrophy and intracranial findings suggesting chronic microvascular disease. TECHNICAL DOCUMENTATION: Quality ID # 436: Final reports with documentation of one or more dose reduction techniques (e.g., Automated exposure control, adjustment of the mA and/or kV according to patient size, use of iterative reconstruction technique) 2010 [employer]- All Rights Reserved Knee X-Ray 03/09/18 00:00 IMPRESSION: Patellofemoral degenerative changes. Assessment & Plan - Diagnosis (1) Sepsis Qualifiers: Sepsis type: sepsis due to unspecified organism Qualified Code(s): A41.9 - Sepsis, unspecified organism Is this a current diagnosis for this admission?: Yes Plan: Continue current antibiotic therapy. Follow up on WBC and clinical indices for monitoring improvement. (2) Peritonitis Is this a current diagnosis for this admission?: Yes Plan: Continue current antibiotic therapy. Follow up on WBC and clinical indices for monitoring improvement. (3) Sacral ulcer Is this a current diagnosis for this admission?: Yes Plan: Continue current antibiotic therapy. Follow up on WBC and clinical indices for monitoring improvement. (4) Rectal bleeding Is this a current diagnosis for this admission?: Yes Plan: Improved. Continue to monitor coagulation indices. (5) Coagulopathy Is this a current diagnosis for this admission?: Yes Plan: Improved. Continue to monitor coagulation indices. (6) coagulopathy due to coumadin Is this a current diagnosis for this admission?: Yes Plan: Improved. Continue to monitor coagulation indices. (7) Calciphylaxis Is this a current diagnosis for this admission?: Yes Plan: Possible hematogenous spread of infection involving the sacral and right thigh lesions. Continue antibiotic therapy and monitor coagulation indices. (8) End stage renal disease Is this a current diagnosis for this admission?: Yes Plan: Continue peritoneal dialysis with Vancomycin therapy through dialysis fluid. (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, on chronic dialysis Is this a current diagnosis for this admission?: Yes Plan: Continue current management. Monitor CBC indices for possible transfusion with hemoglobin < 8gm/dL. (10) Anemia due to chronic disease treated with erythropoietin Is this a current diagnosis for this admission?: Yes Plan: Continue current management. Monitor CBC indices for possible transfusion with hemoglobin < 8gm/dL. Continue Epogen therapy as indicated. (11) Hypertension Qualifiers: Hypertension type: essential hypertension Qualified Code(s): I10 - Essential (primary) hypertension Is this a current diagnosis for this admission?: Yes Plan: Maintain on current medication management. - Time Time Spent with patient: 35 or more minutes Medications reviewed and adjusted accordingly: Yes Anticipated discharge: Hospice - I had extensive discussion with sacha about patient's overall poor prognosis rewgarding morbidities and advance age with poor physiologic and function reserve. At this time patient remain a full code as per family's wishes. Within: Other - Inpatient Certification Based on my medical assessment, after consideration of the patient's comorbidities, presenting symptoms, or acuity I expect that the services needed warrant INPATIENT care.: Yes I certify that my determination is in accordance with my understanding of Medicare's requirements for reasonable and necessary INPATIENT services [42 CFR 412.3e].: Yes Medical Necessity: Need Close Monitoring Due to Risk of Patient Decompensation, Need For IV Fluids, Need For Continuous Telemetry Monitoring, Need for Pain Control, Need for IV Antibiotics, Need for Surgery, Risk of Complication if Not Cared For in Hospital Post Hospital Care: D/C Admission Specialist Documentation - Plan Summary Plan Summary: See attending physician orders. Overall prognosis remain poor. Maintain on IV Zosyn for E. Faecalis septicemia and Proteus Vulgaris infected sacral wound. management. Follow up on left knee effusion culture findings. Maintain on Vancomycin therapy in peritoneal dialysis fluid.
--- NOTE | 2018-03-10 20:33 | PDOC PROGRESS REPORT ---
Subjective Progress Note for:: 03/10/18 Subjective:: Patient appears to be clinically better today. I found her awake and actually answering questions and communicating better today than the last couple of days. She admits that she is feeling better. She denies any nausea or vomiting today. She could not really tell me if she is having abdominal pain. Although her intake is still not very good she said she is trying to eat. Her peritoneal dialysis seems to be going well. She denies any chest pains no shortness of breath. She did not any complain of anything else. Reason For Visit: SEPSIS Physical Exam Vital Signs: Temp Pulse Resp BP Pulse Ox 98.4 F 71 12 125/61 100 03/10/18 17:00 03/10/18 17:00 03/10/18 17:00 03/10/18 17:00 03/10/18 17:00 Intake & Output 03/09/18 03/10/18 03/11/18 06:59 06:59 06:59 Intake Total 4732 4137 1900 Output Total 3700 3100 2200 Balance 1032 1037 -300 Weight 69.1 kg 72.4 kg Exam: General appearance: PRESENT: no acute distress, cooperative, well-developed, well-nourished Head exam: PRESENT: atraumatic, normocephalic Eye exam: PRESENT: conjunctiva pale, PERRLA. ABSENT: scleral icterus Neck exam: ABSENT: JVD Respiratory exam: PRESENT: Diminished breath sounds. ABSENT: crackles, rales, rhonchi, unlabored, wheezes Cardiovascular exam: PRESENT: Regular rate rhythm -+S1, +S2. Grade 2/6 systolic murmur GI/Abdominal exam: PRESENT: normal bowel sounds, soft. Slight discomfort on abdominal palpation ABSENT: guarding, mass, tenderness Extremities exam: ABSENT: No edema; right knee swelling very minimal but there is still tenderness and patient can only move her knee minimally. Neurological exam: PRESENT: alert, awake, oriented to person, place and time. Skin exam: PRESENT: dry, warm, she has her bilateral thigh ulcers. Right thigh has purulent drainage but according to the nurse the drainage somehow has diminished. She also has sacral ulcer. Results Laboratory Results: 03/10/18 05:20 03/10/18 05:20 03/10/18 03/10/18 03/10/18 05:20 05:20 05:20 WBC 9.0 RBC 2.63 L Hgb 8.4 L Hct 25.6 L MCV 97 MCH 31.9 MCHC 32.8 RDW 20.5 H Plt Count 170 Seg Neutrophils % 77.8 Lymphocytes % 14.0 Monocytes % 8.0 Eosinophils % 0.1 Basophils % 0.1 Absolute Neutrophils 7.0 Absolute Lymphocytes 1.3 Absolute Monocytes 0.7 Absolute Eosinophils 0.0 Absolute Basophils 0.0 Sodium 137.5 Potassium 3.5 L Chloride 95 L Carbon Dioxide 19 L Anion Gap 24 H BUN 55 H Creatinine 5.83 H Est GFR ( Amer) 8 L Est GFR (Non-Af Amer) 7 L Glucose 91 Lactic Acid 1.2 Calcium 8.6 Phosphorus 5.5 H Magnesium 1.8 03/08/18 08:25 Hip - Decubitis Ulcer Gram Stain - Final Impressions: Chest X-Ray 03/07/18 16:04 IMPRESSION: HEART ENLARGED WITHOUT FAILURE. NO OTHER SIGNIFICANT RADIOGRAPHIC FINDING IN THE CHEST. Head CT 03/08/18 00:00 IMPRESSION: 1. No acute intracranial finding 2. Moderate cerebral atrophy and intracranial findings suggesting chronic microvascular disease. TECHNICAL DOCUMENTATION: Quality ID # 436: Final reports with documentation of one or more dose reduction techniques (e.g., Automated exposure control, adjustment of the mA and/or kV according to patient size, use of iterative reconstruction technique) 2010 [employer]- All Rights Reserved Knee X-Ray 03/09/18 00:00 IMPRESSION: Patellofemoral degenerative changes. Assessment & Plan - Diagnosis (1) Sepsis Qualifiers: Sepsis type: sepsis due to unspecified organism Qualified Code(s): A41.9 - Sepsis, unspecified organism Is this a current diagnosis for this admission?: Yes Plan: Blood cultures has grown Enterococcus faecalis sensitive to almost all antibiotics including penicillin and vancomycin. Her PD effluent fluid cultures positive for gram-positive cocci in chains for which identification and sensitivity still pending. Her wound culture has some Proteus vulgaris and gram-negative rods. I consulted infectious disease. Dr. Galeano agreed with current systemic antibiotics with Zosyn and intraperitoneal vancomycin. Her only recommendation is to rule out endocarditis. Appreciate her input. Dr. Josué clark ordered transthoracic echocardiogram for now which I totally agreed. Patient has her murmur for a long time and is nothing new. Clinically the patient is getting better so I am not sure if there is a need to do a KARIS and possible transfer. Hopefully the transthoracic echocardiogram can give us an idea if the KARIS is really necessary at this point. Agree with continuation of IV Zosyn. (2) Peritonitis Is this a current diagnosis for this admission?: Yes Plan: Continue intraperitoneal vancomycin. We will check trough level again tomorrow. Since the culture is growing gram-positive cocci in chains will hold adding a giving another dose of gentamicin intraperitoneally. (3) Calciphylaxis Is this a current diagnosis for this admission?: Yes Plan: Patient will complete her sodium thiosulfate this week. She is supposed to receive it on Saturday, and Saturday (4) Sacral ulcer Is this a current diagnosis for this admission?: Yes (5) End stage renal disease Is this a current diagnosis for this admission?: Yes Plan: Continue current CAPD prescription regimen. Patient will be reevaluated after treatment of current sepsis and peritonitis for possible switching to hemodialysis. Another option is to increase her fill volume which currently we are doing with 900 fill volume. He might need to reevaluate her adequacy after this episode. (6) Anemia Is this a current diagnosis for this admission?: Yes Plan: Appreciate Dr. Cehng's input. Patient received Procrit yesterday. We will give another dose on Saturday. Transfuse if hemoglobin less than 8. (7) Poor nutrition Is this a current diagnosis for this admission?: Yes Plan: Start Nepro twice a day. (8) Congestive heart failure Qualifiers: Heart failure type: systolic Is this a current diagnosis for this admission?: Yes (9) Coronary artery disease Is this a current diagnosis for this admission?: Yes (10) Hypertension Qualifiers: Hypertension type: essential hypertension Qualified Code(s): I10 - Essential (primary) hypertension Is this a current diagnosis for this admission?: Yes (11) Open thigh wound Qualifiers: Laterality: right Is this a current diagnosis for this admission?: Yes Plan: Surgery is planning to do debridement on the right thigh awaiting her PT/ INR to decrease. (12) Rectal bleeding Is this a current diagnosis for this admission?: Yes Plan: Improved and almost resolved. Monitor PT and INR. (13) Coagulopathy Is this a current diagnosis for this admission?: Yes Plan: Due to supratherapeutic INR with warfarin for atrial fibrillation. Patient had fresh frozen plasma and vitamin K last Saturday. (14) Patellofemoral arthralgia of right knee Is this a current diagnosis for this admission?: Yes Plan: Evaluated and seen by orthopedic surgeon Dr. Castro. - Time Time with patient: Greater than 35 minutes
[2018-03-11] MEDS: PIPERACILLIN SODIUM/TAZOBACTAM 2.25 GM in NORMAL SALINE 50 ML IV SCH ×3 (05:38→21:52)
[2018-03-11 06:34] LABS: INTERNATIONAL RATION (INR) 3.24; PROTHROMBIN TIME 34.6 SEC (11.4-15.4)
[2018-03-11 06:35] LABS: HEMATOCRIT 27.1 % (36.0-47.0); MEAN CORPUSCULAR HEMOGLOBIN 32.7 pg (27.0-33.4); MEAN CORPUSCULAR HGB CONC 33.1 g/dL (32.0-36.0); MEAN CORPUSCULAR VOLUME 99 fl (80-97); PLATELET COUNT 175 10^3/uL (150-450); RED BLOOD COUNT 2.75 10^6/uL (3.72-5.28); RED CELL DISTRIBUTION WIDTH 20.3 % (11.5-14.0); WHITE BLOOD COUNT 9.4 10^3/uL (4.0-10.5)
[2018-03-11 07:01] LABS: VANCOMYCIN,TROUGH 21.5 ug/mL (5.0-20.0)
[2018-03-11 07:51] LABS: BLOOD UREA NITROGEN 56 mg/dL (7-20); CALCIUM 8.6 mg/dL (8.4-10.2); GLUCOSE 86 mg/dL (75-110); PHOSPHORUS 5.9 mg/dL (2.5-4.5); POTASSIUM 3.4 mmol/L (3.6-5.0)
[2018-03-11 07:56] LABS: CARBON DIOXIDE 21 mmol/L (22-30); CHLORIDE 96 mmol/L (98-107); SODIUM 137.9 mmol/L (137-145)
[2018-03-11 07:58] LABS: ANION GAP 21 (5-19)
[2018-03-11 08:07] LABS: ABSOLUTE LYMPHOCYTES# (MANUAL) 1.3 10^3/uL (0.5-4.7); ABSOLUTE MONOCYTES # (MANUAL) 0.8 10^3/uL (0.1-1.4); ABSOLUTE NEUTROPHILS# (MANUAL) 7.1 10^3/uL (1.7-8.2); ANISOCYTOSIS 2+; BAND NEUTROPHILS % (MANUAL) 1 % (3-5); BASOPHILS % (MANUAL) 0 % (0-2); EOSINOPHILS % (MANUAL) 2 % (0-6); HYPOCHROMASIA 1+; LYMPHOCYTES % (MANUAL) 14 % (13-45); MONOCYTES % (MANUAL) 9 % (3-13); NUCLEATED RED BLOOD CELLS 2 /100 WBC (0); OVALOCYTES 2+; PLATELET COMMENT ADEQUATE; POIKILOCYTOSIS 2+; POLYCHROMASIA SLIGHT; SEGMENTED NEUTROPHILS % (MAN) 74 % (42-78); STOMATOCYTES SLIGHT; TOTAL CELLS COUNTED 100; TOXIC GRANULATION SLIGHT
[2018-03-11] MEDS ORDERED: DIPHENHYDRAMINE HCL 50 MG/ML VIAL IV PRN ×2 (09:21→19:50)
[2018-03-11] MEDS ORDERED: ONDANSETRON HCL INJ/PF 4 MG/2 ML SDV IV PRN ×2 (09:32→19:50)
[2018-03-11] MEDS: HYDROMORPHONE HCL INJ/PF 2 MG/ML AMPULE IV PRN ×2 (09:32→21:52)
[2018-03-11] MEDS: FAMOTIDINE INJ/PF 20 MG/2 ML SDV IV SCH (09:33)
[2018-03-11] MEDS: MAGNESIUM OXIDE 400 MG TABLET PO SCH (09:38)
[2018-03-11] MEDS: ALLOPURINOL 100 MG TABLET PO SCH (09:38)
[2018-03-11] MEDS: FUROSEMIDE 80 MG TABLET PO SCH (09:38)
[2018-03-11] MEDS: POTASSIUM CHLORIDE 20 MEQ/15 ML UDCUP PO SCH (09:39)
[2018-03-11] MEDS: SEVELAMER HCL 800 MG TABLET PO SCH ×3 (09:39→16:18)
[2018-03-11] MEDS: METOPROLOL TARTRATE 25 MG TABLET PO SCH ×2 (09:39→21:53)
[2018-03-11] MEDS: SILVER SULFADIAZINE 1% CREAM 400 GM TP SCH ×4 (09:43→21:55)
[2018-03-11] MEDS: FENTANYL 100 MCG/HR PATCH.TD72 TD SCH (09:56)
[2018-03-11] MEDS: LIDOCAINE 5% (700 MG) TRANSDERMAL ADH..PATCH TP SCH ×2 (09:56→18:47)
[2018-03-11] MEDS: OLOPATADINE HCL 0.1% OPH SOLN 5 ML OU SCH ×2 (10:00→17:05)
[2018-03-11] MEDS ORDERED: SODIUM THIOSULFATE IV SCH (10:00)
[2018-03-11] MEDS ORDERED: NS IV SCH (10:00)
[2018-03-11] MEDS: NORMAL SALINE IV SCH (10:07)
[2018-03-11] MEDS: SODIUM THIOSULFATE IV SCH (10:07)
[2018-03-11] MEDS: MEGESTROL ACETATE SUSP 400 MG/10 ML UDCUP PO SCH (11:02)
[2018-03-11] MEDS ORDERED: VANCOMYCIN HCL INJ 1000 MG VIAL IPER SCH (13:00)
--- NOTE | 2018-03-11 15:10 | PDOC PROGRESS REPORT ---
Subjective Progress Note for:: 03/11/18 Subjective:: Patient said that she feels a little sore on her thighs. She received her sodium thiosulfate dose today and did not have any side effects. She is receiving fresh frozen plasma in preparation for debridement of her wound on her right thigh. Aside from that she did not really have any other complaints. So far her CAPD is doing fine without any problems. Reason For Visit: SEPSIS Physical Exam Vital Signs: Temp Pulse Resp BP Pulse Ox 98.6 F 69 16 133/57 H 100 03/11/18 14:51 03/11/18 14:51 03/11/18 14:51 03/11/18 14:51 03/11/18 14:51 Intake & Output 03/10/18 03/11/18 03/12/18 06:59 06:59 06:59 Intake Total 4137 3800 1900 Output Total 3100 3450 1200 Balance 1037 350 700 Weight 72.4 kg 72.1 kg 77.1 kg Exam: General appearance: PRESENT: no acute distress, cooperative, well-developed, well-nourished Head exam: PRESENT: atraumatic, normocephalic Eye exam: PRESENT: conjunctiva pale, PERRLA. ABSENT: scleral icterus Neck exam: ABSENT: JVD Respiratory exam: PRESENT: Diminished breath sounds. ABSENT: crackles, rales, rhonchi, unlabored, wheezes Cardiovascular exam: PRESENT: Regular rate rhythm -+S1, +S2. ABSENT: diastolic murmur, systolic murmur GI/Abdominal exam: PRESENT: normal bowel sounds, soft. Mild abdominal tenderness on palpation ABSENT: guarding, mass Extremities exam: ABSENT: No edema; right knee swelling and tenderness seems to be better every day Neurological exam: PRESENT: alert, awake, oriented to person, place and time. Skin exam: PRESENT: dry, warm, bilateral thigh ulcers and change Results Laboratory Results: 03/11/18 05:40 03/11/18 08:46 03/11/18 03/11/18 03/11/18 05:40 05:40 08:46 WBC 9.4 RBC 2.75 L Hgb 9.0 L Hct 27.1 L MCV 99 H MCH 32.7 MCHC 33.1 RDW 20.3 H Plt Count 175 Seg Neutrophils % Not Reportable Lymphocytes % Not Reportable Monocytes % Not Reportable Eosinophils % Not Reportable Basophils % Not Reportable Absolute Neutrophils Not Reportable Absolute Lymphocytes Not Reportable Absolute Monocytes Not Reportable Absolute Eosinophils Not Reportable Absolute Basophils Not Reportable Sodium 137.9 Potassium 3.4 L Chloride 96 L Carbon Dioxide 21 L Anion Gap 21 H BUN 56 H Creatinine 6.21 H Est GFR ( Amer) 8 L Est GFR (Non-Af Amer) 6 L Glucose 86 Calcium 8.6 Phosphorus 5.9 H Blood Type A POSITIVE 03/11/18 08:46 WBC RBC Hgb Hct MCV MCH MCHC RDW Plt Count Seg Neutrophils % Lymphocytes % Monocytes % Eosinophils % Basophils % Absolute Neutrophils Absolute Lymphocytes Absolute Monocytes Absolute Eosinophils Absolute Basophils Sodium Potassium 3.6 Chloride Carbon Dioxide Anion Gap BUN Creatinine Est GFR ( Amer) Est GFR (Non-Af Amer) Glucose Calcium Phosphorus Blood Type 03/08/18 08:25 Hip - Decubitis Ulcer Gram Stain - Final 03/08/18 08:25 Hip - Decubitis Ulcer Wound Culture - Final Proteus Vulgaris Pseudomonas Aeruginosa Escherichia Coli Skin Sara Impressions: Chest X-Ray 03/07/18 16:04 IMPRESSION: HEART ENLARGED WITHOUT FAILURE. NO OTHER SIGNIFICANT RADIOGRAPHIC FINDING IN THE CHEST. Head CT 03/08/18 00:00 IMPRESSION: 1. No acute intracranial finding 2. Moderate cerebral atrophy and intracranial findings suggesting chronic microvascular disease. TECHNICAL DOCUMENTATION: Quality ID # 436: Final reports with documentation of one or more dose reduction techniques (e.g., Automated exposure control, adjustment of the mA and/or kV according to patient size, use of iterative reconstruction technique) 2010 [employer]- All Rights Reserved Knee X-Ray 03/09/18 00:00 IMPRESSION: Patellofemoral degenerative changes. Assessment & Plan - Diagnosis (1) Sepsis Qualifiers: Sepsis type: sepsis due to unspecified organism Qualified Code(s): A41.9 - Sepsis, unspecified organism Is this a current diagnosis for this admission?: Yes Plan: Blood cultures has grown Enterococcus faecalis sensitive to almost all antibiotics including penicillin and vancomycin. Her PD effluent fluid cultures positive for Enterococcus faecalis as well. Her wound culture has some Proteus vulgaris, pseudomonas aeruginosa and E. coli. I consulted infectious disease. Dr. Galeano agreed with current systemic antibiotics with Zosyn and intraperitoneal vancomycin. Her only recommendation is to rule out endocarditis. Appreciate her input. Dr. Osunkoya as ordered transthoracic echocardiogram for now which I totally agreed. Patient has her murmur for a long time and is nothing new. Clinically the patient is getting better so I am not sure if there is a need to do a KARIS and possible transfer. Of note patient did have a more recent KARIS at [facility] between November and December when she was hospitalized there for calciphylaxis and line sepsis. Hopefully the transthoracic echocardiogram can give us an idea if the KARIS is really necessary at this point. Agree with continuation of IV Zosyn. We will repeat blood cultures from her PICC line tomorrow. After the sodium thiosulfate course is done I think we have to find a peripheral line so we can discontinue the PICC line. (2) Peritonitis Is this a current diagnosis for this admission?: Yes Plan: Continue intraperitoneal vancomycin. PD fluid cultures positive for Enterococcus faecalis. Continue IP vancomycin. Due to elevated trough level will change it to every 72 hours. We will also repeat PD fluid culture and Gram stain tomorrow. (3) Calciphylaxis Is this a current diagnosis for this admission?: Yes Plan: Patient will complete her sodium thiosulfate this week. She is supposed to receive it on Saturday, and Saturday. Last dose will be on this Saturday. (4) Sacral ulcer Is this a current diagnosis for this admission?: Yes (5) End stage renal disease Is this a current diagnosis for this admission?: Yes Plan: Continue current CAPD prescription regimen. Patient will be reevaluated after treatment of current sepsis and peritonitis for possible switching to hemodialysis. Another option is to increase her fill volume which currently we are doing with 900 fill volume. We will also try to increase the fill volume further to 1 L in the next few days. We will reevaluate her adequacy after this episode. (6) Anemia Qualifiers: Chronic kidney disease stage: on chronic dialysis Is this a current diagnosis for this admission?: Yes Plan: Appreciate Dr. Romero's input. Patient received Procrit last . Continue Procrit 40,000 units weekly on Sundays. Transfuse if hemoglobin less than 8. (7) Poor nutrition Is this a current diagnosis for this admission?: Yes Plan: Start Nepro twice a day. (8) Congestive heart failure Qualifiers: Heart failure type: systolic Is this a current diagnosis for this admission?: Yes Plan: Compensated. (9) Coronary artery disease Is this a current diagnosis for this admission?: Yes (10) Hypertension Qualifiers: Hypertension type: essential hypertension Qualified Code(s): I10 - Essential (primary) hypertension Is this a current diagnosis for this admission?: Yes Plan: Well-controlled. (11) Open thigh wound Qualifiers: Laterality: right Is this a current diagnosis for this admission?: Yes Plan: Surgery is planning to do debridement on the right thigh today after the FFP. (12) Rectal bleeding Is this a current diagnosis for this admission?: Yes Plan: Resolved.. (13) Coagulopathy Is this a current diagnosis for this admission?: Yes Plan: Due to supratherapeutic INR with warfarin for atrial fibrillation. Patient had fresh frozen plasma and vitamin K last Saturday. Being given FFP is again prior to debridement of her right thigh ulcer. (14) Patellofemoral arthralgia of right knee Is this a current diagnosis for this admission?: Yes Plan: Evaluated and seen by orthopedic surgeon Dr. Castro. Currently improving. - Time Time with patient: Greater than 35 minutes
[2018-03-11 17:05] LABS: INTERNATIONAL RATION (INR) 1.93
--- NOTE | 2018-03-11 18:03 | PDOC PROGRESS REPORT ---
Subjective Progress Note for:: 03/11/18 Subjective:: Patient denied any fever or chills. No difficulty with breathing. Agreeable with right thigh wound debridement as per surgical team recommendations. Tolerating peritoneal dialysis sessions. Reason For Visit: SEPSIS Physical Exam Vital Signs: Temp Pulse Resp BP Pulse Ox 98.9 F 70 20 119/62 100 03/11/18 07:49 03/11/18 07:49 03/11/18 07:49 03/11/18 07:49 03/11/18 07:49 Intake & Output 03/10/18 03/11/18 03/12/18 06:59 06:59 06:59 Intake Total 4137 3800 Output Total 3100 3450 Balance 1037 350 Weight 72.4 kg 72.1 kg Physical Exam: General appearance: PRESENT: no acute distress, disheveled - chronically ill looking Head exam: PRESENT: atraumatic, normocephalic Eye exam: PRESENT: conjunctiva pink, EOMI, PERRLA. ABSENT: scleral icterus Respiratory exam: PRESENT: clear to auscultation milana, decreased breath sounds - at lung bases Cardiovascular exam: PRESENT: RRR, systolic murmur. ABSENT: diastolic murmur, rubs Murmur grade: 3 Vascular exam: ABSENT: pallor GI/Abdominal exam: PRESENT: normal bowel sounds, soft. ABSENT: ascites, mass, rebound, tenderness Extremities exam: ABSENT: pedal edema Musculoskeletal exam: PRESENT: deformity - related to multiple joint involvement with arthritis, tenderness - multiple sports tenderness Neurological exam: PRESENT: alert, awake - and appropriate in simple responses Psychiatric exam: PRESENT: appropriate affect. 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, warm, other - unstagable eschar covered sacral and right thigh lateral regions of pressure ulcer Murmur grade: 3 Results Laboratory Results: 03/11/18 05:40 03/11/18 05:40 03/11/18 03/11/18 05:40 05:40 WBC 9.4 RBC 2.75 L Hgb 9.0 L Hct 27.1 L MCV 99 H MCH 32.7 MCHC 33.1 RDW 20.3 H Plt Count 175 Seg Neutrophils % Not Reportable Lymphocytes % Not Reportable Monocytes % Not Reportable Eosinophils % Not Reportable Basophils % Not Reportable Absolute Neutrophils Not Reportable Absolute Lymphocytes Not Reportable Absolute Monocytes Not Reportable Absolute Eosinophils Not Reportable Absolute Basophils Not Reportable Sodium 137.9 Potassium 3.4 L Chloride 96 L Carbon Dioxide 21 L Anion Gap 21 H BUN 56 H Creatinine 6.21 H Est GFR ( Amer) 8 L Est GFR (Non-Af Amer) 6 L Glucose 86 Calcium 8.6 Phosphorus 5.9 H 03/08/18 08:25 Hip - Decubitis Ulcer Gram Stain - Final Impressions: Chest X-Ray 03/07/18 16:04 IMPRESSION: HEART ENLARGED WITHOUT FAILURE. NO OTHER SIGNIFICANT RADIOGRAPHIC FINDING IN THE CHEST. Head CT 03/08/18 00:00 IMPRESSION: 1. No acute intracranial finding 2. Moderate cerebral atrophy and intracranial findings suggesting chronic microvascular disease. TECHNICAL DOCUMENTATION: Quality ID # 436: Final reports with documentation of one or more dose reduction techniques (e.g., Automated exposure control, adjustment of the mA and/or kV according to patient size, use of iterative reconstruction technique) 2010 [employer]- All Rights Reserved Knee X-Ray 03/09/18 00:00 IMPRESSION: Patellofemoral degenerative changes. Assessment & Plan - Diagnosis (1) Sepsis Qualifiers: Sepsis type: sepsis due to unspecified organism Qualified Code(s): A41.9 - Sepsis, unspecified organism Is this a current diagnosis for this admission?: Yes 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, on chronic dialysis Is this a current diagnosis for this admission?: Yes (10) Anemia due to chronic disease treated with erythropoietin Is this a current diagnosis for this admission?: Yes (11) Hypertension Qualifiers: Hypertension type: essential hypertension Qualified Code(s): I10 - Essential (primary) hypertension Is this a current diagnosis for this admission?: Yes - Time Time Spent with patient: 25-34 minutes Medications reviewed and adjusted accordingly: Yes Anticipated discharge: Home with Homehealth Within: Other - Inpatient Certification Based on my medical assessment, after consideration of the patient's comorbidities, presenting symptoms, or acuity I expect that the services needed warrant INPATIENT care.: Yes I certify that my determination is in accordance with my understanding of Medicare's requirements for reasonable and necessary INPATIENT services [42 CFR 412.3e].: Yes Medical Necessity: Need Close Monitoring Due to Risk of Patient Decompensation, Need For IV Fluids, Need For Continuous Telemetry Monitoring, Need for IV Antibiotics, Risk of Complication if Not Cared For in Hospital Post Hospital Care: D/C Software Application Tester Documentation - Plan Summary Plan Summary: Continue IV Zosyn and peritoneal fluid diluents with Vancomycin with adequate coverage for all identified microbes so far. Follow up on TTE findings for possible valvular vegetations. Follow up with surgical findings at debridement.
[2018-03-11] MEDS ORDERED: FENTANYL CITRATE INJ/PF 100 MCG/2 ML AMPUL ONE (18:45)
[2018-03-11] MEDS ORDERED: LIDOCAINE 2% INJ-PF (20 MG/ML) 10 ML AMPUL ONE (18:45)
[2018-03-11] MEDS ORDERED: PROPOFOL INJ 200 MG/20 ML VIAL IV ONE (18:46)
[2018-03-11] MEDS ORDERED: MIDAZOLAM 2 MG/2 ML INJ ONE (18:46)
[2018-03-11] MEDS ORDERED: LIDOCAINE 1% INJ-PF (10 MG/ML) 30 ML SDV ONE (19:20)
[2018-03-11] MEDS ORDERED: FENTANYL CITRATE INJ/PF 100 MCG/2 ML AMPUL IV PRN ×3 (19:50)
[2018-03-11] MEDS ORDERED: PROMETHAZINE HCL INJ 25 MG/1 ML VIAL IV PRN (19:50)
--- NOTE | 2018-03-11 21:15 | OPERATIVE REPORT E ---
Operative Report NAME: NANCY BIRMINGHAM : 1935 AGE: 83Y DATE OF SURGERY: 03/11/2018 ROOM: 335 PREOPERATIVE DIAGNOSIS: ESCHAR WITH ABSCESS FORMATION, CALCIPHYLAXIS AREA. POSTOPERATIVE DIAGNOSIS: ESCHAR WITH ABSCESS FORMATION, CALCIPHYLAXIS AREA. OPERATION: Excision of eschar with removal of most of the calciphylaxis area including the abscess cavity and placement of Wound Vac. SURGEON: JENNIFER NG M.D. ANESTHESIA: Local MAC. INDICATION: This is an 83-year-old female who was admitted for gastrointestinal bleed and purulent discharge from the right thigh eschar site, but noted to have markedly elevated INR of 15 with a PT of around 80 seconds. This happened on 03/07/2018. Since then, she had blood transfusion and fresh frozen plasma. Today, her INR was 3.4 and had at least 2 units of fresh frozen plasma and her INR came down to 1.9. At the time of the procedure, she was getting a 3rd unit of fresh frozen plasma. PROCEDURE: After adequate IV sedation, the patient was placed left side down with the right side up. The right thigh with eschar was on the lateral aspect of the thigh. The right thigh was then prepped and draped in the usual sterile fashion. Appropriate timeout was called. Local anesthesia infiltrated around the thigh eschar site. The eschar was subsequently excised sharply and hemostasis obtained with cautery. The eschar was completely excised and most of the calciphylaxis or calcified area around the eschar. The remaining cavity, after completion of the excision and debridement, was 13 cm long x 10 cm wide. Hemostasis obtained with cautery. The abscess area was cultured. Abscess cavity was completely excised which was just at the subcutaneous area, but close to the fascia. The fascia was not involved. Following the excision, the Wound Vac was in place over the excised eschar, and hooked to suction at -125 mmHg pressure continuous suction. The patient tolerated the procedure well. Needle, instrument, and sponge count were all correct. Estimated blood loss about 20 mL. The patient was then brought to the recovery room in satisfactory condition. DICTATING PHYSICIAN: JENNIFER NG M.D. [id number] PHY#: [id number] ID: [id number] JOB#: [id number] ACCT: [id number] cc:JENNIFER NG M.D. >
[2018-03-12] MEDS: PIPERACILLIN SODIUM/TAZOBACTAM 2.25 GM in NORMAL SALINE 50 ML IV SCH ×3 (06:44→21:44)
[2018-03-12] MEDS: HYDROMORPHONE HCL INJ/PF 2 MG/ML AMPULE IV PRN ×5 (07:08→22:21)
[2018-03-12 07:44] LABS: INTERNATIONAL RATION (INR) 1.78; PROTHROMBIN TIME 21.6 SEC (11.4-15.4)
[2018-03-12 07:52] LABS: BLOOD UREA NITROGEN 49 mg/dL (7-20); CALCIUM 8.9 mg/dL (8.4-10.2); GLUCOSE 77 mg/dL (75-110); POTASSIUM 4.2 mmol/L (3.6-5.0)
[2018-03-12 07:57] LABS: CARBON DIOXIDE 21 mmol/L (22-30); CHLORIDE 96 mmol/L (98-107); SODIUM 141.1 mmol/L (137-145)
[2018-03-12 08:06] LABS: ANION GAP 24 (5-19)
[2018-03-12 08:08] LABS: HEMATOCRIT 23.9 % (36.0-47.0); MEAN CORPUSCULAR HEMOGLOBIN 32.9 pg (27.0-33.4); MEAN CORPUSCULAR HGB CONC 33.2 g/dL (32.0-36.0); MEAN CORPUSCULAR VOLUME 99 fl (80-97); PLATELET COUNT 147 10^3/uL (150-450); RED BLOOD COUNT 2.41 10^6/uL (3.72-5.28); RED CELL DISTRIBUTION WIDTH 19.9 % (11.5-14.0); WHITE BLOOD COUNT 8.4 10^3/uL (4.0-10.5)
[2018-03-12 08:45] LABS: HEMOGLOBIN 7.9 g/dL (12.0-15.5)
[2018-03-12 08:51] LABS: ABSOLUTE MONOCYTES # (MANUAL) 1.1 10^3/uL (0.1-1.4); ABSOLUTE NEUTROPHILS# (MANUAL) 6.2 10^3/uL (1.7-8.2); ANISOCYTOSIS 2+; BASOPHILS % (MANUAL) 1 % (0-2); EOSINOPHILS % (MANUAL) 0 % (0-6); LYMPHOCYTES % (MANUAL) 12 % (13-45); MONOCYTES % (MANUAL) 13 % (3-13); OVALOCYTES 1+; PLATELET COMMENT ADEQUATE; POIKILOCYTOSIS 1+; POLYCHROMASIA SLIGHT; SCHISTOCYTES 1+; SEGMENTED NEUTROPHILS % (MAN) 74 % (42-78); TOTAL CELLS COUNTED 100; TOXIC GRANULATION SLIGHT
[2018-03-12] MEDS: MEGESTROL ACETATE SUSP 400 MG/10 ML UDCUP PO SCH (10:20)
[2018-03-12] MEDS: POTASSIUM CHLORIDE 20 MEQ/15 ML UDCUP PO SCH (10:21)
[2018-03-12] MEDS: FAMOTIDINE INJ/PF 20 MG/2 ML SDV IV SCH (10:21)
[2018-03-12] MEDS: SEVELAMER HCL 800 MG TABLET PO SCH ×3 (10:21→16:58)
[2018-03-12] MEDS: OLOPATADINE HCL 0.1% OPH SOLN 5 ML OU SCH ×2 (10:22→19:15)
[2018-03-12] MEDS: LIDOCAINE 5% (700 MG) TRANSDERMAL ADH..PATCH TP SCH (10:23)
[2018-03-12] MEDS: ALLOPURINOL 100 MG TABLET PO SCH (10:24)
[2018-03-12] MEDS: MAGNESIUM OXIDE 400 MG TABLET PO SCH (10:24)
[2018-03-12] MEDS: FUROSEMIDE 80 MG TABLET PO SCH (10:24)
[2018-03-12] MEDS: METOPROLOL TARTRATE 25 MG TABLET PO SCH ×2 (10:24→21:44)
[2018-03-12] MEDS: SILVER SULFADIAZINE 1% CREAM 400 GM TP SCH ×4 (10:26→21:57)
--- NOTE | 2018-03-12 17:13 | PDOC PROGRESS REPORT ---
Subjective Progress Note for:: 03/12/18 Subjective:: Patient has debridement of her right eye and is currently on wound VAC. Patient tells me today that she is having some loose soft stool every time she eats. This was confirmed by her nurse today but not necessarily every time she eats because she eats very poorly. She did not really complain of any pain or shortness of breath. She denies any nausea nor vomiting nor fever. She is currently receiving blood transfusion. In terms of her CAPD everything seems to be doing fine except that we are not getting enough ultrafiltration to cover all the IV fluids, medications and blood products that has been given since yesterday. She started to become more swollen today compared to previous days. So I have started to change the patient's PD solution to be used for more ultrafiltration. Reason For Visit: SEPSIS Physical Exam Vital Signs: Temp Pulse Resp BP Pulse Ox 97.5 F 69 16 132/64 H 100 03/12/18 16:12 03/12/18 16:12 03/12/18 16:12 03/12/18 16:12 03/12/18 16:12 Intake & Output 03/11/18 03/12/18 03/13/18 06:59 06:59 06:59 Intake Total 3800 4976 950 Output Total 3450 4325 1200 Balance 350 651 -250 Weight 72.1 kg 72 kg Exam: General appearance: PRESENT: no acute distress, cooperative, well-developed, well-nourished Head exam: PRESENT: atraumatic, normocephalic Eye exam: PRESENT: conjunctiva pale, PERRLA. ABSENT: scleral icterus Neck exam: ABSENT: JVD Respiratory exam: PRESENT: Diminished breath sounds. ABSENT: crackles, rales, rhonchi, unlabored, wheezes Cardiovascular exam: PRESENT: Regular rate rhythm -+S1, +S2. Grade 2/6 systolic murmur GI/Abdominal exam: PRESENT: normal bowel sounds, soft. Mild discomfort on palpation. ABSENT: guarding, mass Extremities exam: She has positive bilateral upper extremity edema which seems to have developed and worsen overnight, grade 1 bilateral lower extremity edema , right knee effusion seems to have worsened as well today. Neurological exam: PRESENT: alert, awake, oriented to person, place and time. Skin exam: PRESENT: dry, warm, Results Laboratory Results: 03/12/18 06:50 03/12/18 06:50 03/11/18 03/12/18 03/12/18 08:46 06:50 06:50 WBC 8.4 RBC 2.41 L Hgb 7.9 L Hct 23.9 L MCV 99 H MCH 32.9 MCHC 33.2 RDW 19.9 H Plt Count 147 L Seg Neutrophils % Not Reportable Lymphocytes % Not Reportable Monocytes % Not Reportable Eosinophils % Not Reportable Basophils % Not Reportable Absolute Neutrophils Not Reportable Absolute Lymphocytes Not Reportable Absolute Monocytes Not Reportable Absolute Eosinophils Not Reportable Absolute Basophils Not Reportable Sodium 141.1 Potassium 4.2 Chloride 96 L Carbon Dioxide 21 L Anion Gap 24 H BUN 49 H Creatinine 5.87 H Est GFR ( Amer) 8 L Est GFR (Non-Af Amer) 7 L Glucose 77 Calcium 8.9 Blood Type A POSITIVE Antibody Screen NEGATIVE Impressions: Chest X-Ray 03/07/18 16:04 IMPRESSION: HEART ENLARGED WITHOUT FAILURE. NO OTHER SIGNIFICANT RADIOGRAPHIC FINDING IN THE CHEST. Head CT 03/08/18 00:00 IMPRESSION: 1. No acute intracranial finding 2. Moderate cerebral atrophy and intracranial findings suggesting chronic microvascular disease. TECHNICAL DOCUMENTATION: Quality ID # 436: Final reports with documentation of one or more dose reduction techniques (e.g., Automated exposure control, adjustment of the mA and/or kV according to patient size, use of iterative reconstruction technique) 2010 [employer]- All Rights Reserved Knee X-Ray 03/09/18 00:00 IMPRESSION: Patellofemoral degenerative changes. Assessment & Plan - Diagnosis (1) Sepsis Qualifiers: Sepsis type: sepsis due to unspecified organism Qualified Code(s): A41.9 - Sepsis, unspecified organism Is this a current diagnosis for this admission?: Yes Plan: Blood cultures has grown Enterococcus faecalis sensitive to almost all antibiotics including penicillin and vancomycin. Her PD effluent fluid cultures positive for Enterococcus faecalis as well. Her wound culture has some Proteus vulgaris, pseudomonas aeruginosa and E. coli. I consulted infectious disease. Dr. Galeano agreed with current systemic antibiotics with Zosyn and intraperitoneal vancomycin. Her only recommendation is to rule out endocarditis. Appreciate her input. Dr. Josué clark ordered transthoracic echocardiogram for now which I totally agreed. Patient has her murmur for a long time and is nothing new. Clinically the patient is getting better so I am not sure if there is a need to do a KARIS and possible transfer. Of note patient did have a more recent KARIS at [facility] between November and December when she was hospitalized there for calciphylaxis and line sepsis. Hopefully the transthoracic echocardiogram can give us an idea if the KARIS is really necessary at this point. Currently still waiting for the echocardiogram to be done which is been ordered 3 days ago. Another possible source of infection is her PICC line. Agree with continuation of IV Zosyn. Blood cultures from her PICC line today. After the sodium thiosulfate course is done I think we have to find a peripheral line so we can discontinue the PICC line. (2) Peritonitis Is this a current diagnosis for this admission?: Yes Plan: Continue intraperitoneal vancomycin. PD fluid cultures positive for Enterococcus faecalis. Continue IP vancomycin. Due to elevated trough level will change it to every 72 hours. PD fluid culture and Gram stain repeated today. (3) Calciphylaxis Is this a current diagnosis for this admission?: Yes Plan: Patient will complete her sodium thiosulfate this week. She is supposed to receive it on Saturday, and Saturday. Last dose will be on this Saturday. Discontinue PICC line after the last dose of 20 thiosulfate and Saturday. (4) Sacral ulcer Is this a current diagnosis for this admission?: Yes (5) End stage renal disease Is this a current diagnosis for this admission?: Yes Plan: Due to increase swelling because of blood products and IV fluids and antibiotic infusion I will change her dialysis solution to 2.5% for all cycles and as her systolic blood pressure is less than 110 and we will use 1.5% dianeal solution. Will monitor ultrafiltration. Continue PD exit site catheter care daily. (6) Anemia Qualifiers: Chronic kidney disease stage: on chronic dialysis Is this a current diagnosis for this admission?: Yes Plan: Agree with blood transfusion today. Continue Procrit 40,000 units subcutaneously every Saturday. (7) Poor nutrition Is this a current diagnosis for this admission?: Yes Plan: Start Nepro twice a day. (8) Congestive heart failure Qualifiers: Heart failure type: systolic Is this a current diagnosis for this admission?: Yes Plan: Compensated. (9) Coronary artery disease Is this a current diagnosis for this admission?: Yes (10) Hypertension Qualifiers: Hypertension type: essential hypertension Qualified Code(s): I10 - Essential (primary) hypertension Is this a current diagnosis for this admission?: Yes Plan: Well-controlled. (11) Open thigh wound Qualifiers: Laterality: right Is this a current diagnosis for this admission?: Yes Plan: Status post debridement on the right thigh yesterday. Currently in wound VAC. (12) Rectal bleeding Is this a current diagnosis for this admission?: Yes Plan: Resolved. (13) Coagulopathy Is this a current diagnosis for this admission?: Yes Plan: Due to supratherapeutic INR with warfarin for atrial fibrillation. Patient had fresh frozen plasma and vitamin K last Saturday. Also given couple of units of FFP yesterday before the debridement. (14) Patellofemoral arthralgia of right knee Is this a current diagnosis for this admission?: Yes Plan: Evaluated and seen by orthopedic surgeon Dr. Castro. Currently improving. (15) Frequent loose stools Is this a current diagnosis for this admission?: Yes Plan: Check stool for C. difficile. - Notes Notes: I will be unavailable starting [facility] so I asked Dr. Parra to cover for me and following this patient. I will also communicate with Dr. oMses. - Time Time with patient: Greater than 35 minutes
--- NOTE | 2018-03-12 19:15 | PDOC PROGRESS REPORT ---
Subjective Progress Note for:: 03/12/18 Subjective:: Patient has right thigh wound debridement and currently on wound vac therapy. Pain is fairly controlled on current regimen. No reported fever or chills. No difficulty with breathing. No nausea, vomiting but P.O intake remain a challenge. Reason For Visit: SEPSIS Physical Exam Vital Signs: Temp Pulse Resp BP Pulse Ox 98.1 F 71 16 123/77 100 03/12/18 07:27 03/12/18 07:27 03/12/18 07:27 03/12/18 07:27 03/12/18 07:27 Intake & Output 03/11/18 03/12/18 03/13/18 06:59 06:59 06:59 Intake Total 3800 4660 50 Output Total 3450 4325 Balance 350 335 50 Weight 72.1 kg 72 kg Physical Exam: General appearance: PRESENT: no acute distress, disheveled - chronically ill looking Head exam: PRESENT: atraumatic, normocephalic Eye exam: PRESENT: conjunctiva pink, EOMI, PERRLA. ABSENT: scleral icterus Respiratory exam: PRESENT: clear to auscultation milana, decreased breath sounds - at lung bases Cardiovascular exam: PRESENT: RRR, systolic murmur. ABSENT: diastolic murmur, rubs Murmur grade: 3 Vascular exam: ABSENT: pallor GI/Abdominal exam: PRESENT: normal bowel sounds, soft. ABSENT: ascites, mass, rebound, tenderness Extremities exam: ABSENT: pedal edema Musculoskeletal exam: PRESENT: deformity - related to multiple joint involvement with arthritis, tenderness - multiple sports tenderness Neurological exam: PRESENT: alert, awake - and appropriate in simple responses Psychiatric exam: PRESENT: appropriate affect. ABSENT: agitated, anxious, homicidal ideation, suicidal ideation Skin exam: PRESENT: dry, wound vac to debrided wound on right thigh lateral aspect, sacral regions of pressure ulcer Murmur grade: 3 Results Laboratory Results: 03/12/18 06:50 03/11/18 03/11/18 03/12/18 08:46 08:46 06:50 Sodium 141.1 Potassium 3.6 4.2 Chloride 96 L Carbon Dioxide 21 L Anion Gap 24 H BUN 49 H Creatinine 5.87 H Est GFR ( Amer) 8 L Est GFR (Non-Af Amer) 7 L Glucose 77 Calcium 8.9 Blood Type A POSITIVE 03/08/18 08:25 Hip - Decubitis Ulcer Gram Stain - Final 03/08/18 08:25 Hip - Decubitis Ulcer Wound Culture - Final Proteus Vulgaris Pseudomonas Aeruginosa Escherichia Coli Skin Sara Impressions: Chest X-Ray 03/07/18 16:04 IMPRESSION: HEART ENLARGED WITHOUT FAILURE. NO OTHER SIGNIFICANT RADIOGRAPHIC FINDING IN THE CHEST. Head CT 03/08/18 00:00 IMPRESSION: 1. No acute intracranial finding 2. Moderate cerebral atrophy and intracranial findings suggesting chronic microvascular disease. TECHNICAL DOCUMENTATION: Quality ID # 436: Final reports with documentation of one or more dose reduction techniques (e.g., Automated exposure control, adjustment of the mA and/or kV according to patient size, use of iterative reconstruction technique) 2010 [employer]- All Rights Reserved Knee X-Ray 03/09/18 00:00 IMPRESSION: Patellofemoral degenerative changes. Assessment & Plan - Diagnosis (1) Sepsis Qualifiers: Sepsis type: sepsis due to unspecified organism Qualified Code(s): A41.9 - Sepsis, unspecified organism Is this a current diagnosis for this admission?: Yes 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, on chronic dialysis Is this a current diagnosis for this admission?: Yes (10) Anemia due to chronic disease treated with erythropoietin Is this a current diagnosis for this admission?: Yes (11) Hypertension Qualifiers: Hypertension type: essential hypertension Qualified Code(s): I10 - Essential (primary) hypertension Is this a current diagnosis for this admission?: Yes - Time Time Spent with patient: 25-34 minutes Medications reviewed and adjusted accordingly: Yes Anticipated discharge: Home with Homehealth Within: Other - Inpatient Certification Based on my medical assessment, after consideration of the patient's comorbidities, presenting symptoms, or acuity I expect that the services needed warrant INPATIENT care.: Yes I certify that my determination is in accordance with my understanding of Medicare's requirements for reasonable and necessary INPATIENT services [42 CFR 412.3e].: Yes Medical Necessity: Need Close Monitoring Due to Risk of Patient Decompensation, Need For Continuous Telemetry Monitoring, Need for IV Antibiotics, Risk of Complication if Not Cared For in Hospital Post Hospital Care: D/C Glass Lined Tank Repairer Documentation - Plan Summary Plan Summary: Patient will receive 2 units PRBC today due to anemia probably multi-factorial in etiology. Follow up on post transfusion CBC. Continue IV Zosyn coverage and Vancomycin in peritoneal dialysis fluid. Follow up on repeat blood culture findings. Consider removal of PICC line upon completion of IV antibiotic therapy if repeat blood culture is no growth. Follow up on requested TTE evaluation.
[2018-03-13] MEDS: HYDROMORPHONE HCL INJ/PF 2 MG/ML AMPULE IV PRN ×3 (00:15→06:12)
[2018-03-13] MEDS: PHARMACY COMMUNICATION ORDER MC SCH ×2 (05:42→21:19)
[2018-03-13] MEDS: PIPERACILLIN SODIUM/TAZOBACTAM 2.25 GM in NORMAL SALINE 50 ML IV SCH ×3 (05:42→21:11)
[2018-03-13 06:50] LABS: HEMATOCRIT 34.5 % (36.0-47.0); MEAN CORPUSCULAR HEMOGLOBIN 31.7 pg (27.0-33.4); MEAN CORPUSCULAR HGB CONC 33.7 g/dL (32.0-36.0); PLATELET COUNT 158 10^3/uL (150-450); RED BLOOD COUNT 3.67 10^6/uL (3.72-5.28); RED CELL DISTRIBUTION WIDTH 19.7 % (11.5-14.0); WHITE BLOOD COUNT 11.1 10^3/uL (4.0-10.5)
[2018-03-13 06:56] LABS: MEAN CORPUSCULAR VOLUME 94 fl (80-97)
[2018-03-13 07:18] LABS: BLOOD UREA NITROGEN 48 mg/dL (7-20); CALCIUM 9.6 mg/dL (8.4-10.2); CARBON DIOXIDE 20 mmol/L (22-30); CHLORIDE 98 mmol/L (98-107); GLUCOSE 110 mg/dL (75-110); POTASSIUM 4.3 mmol/L (3.6-5.0)
[2018-03-13 07:27] LABS: SODIUM 141.7 mmol/L (137-145)
[2018-03-13 07:30] LABS: ANION GAP 24 (5-19)
[2018-03-13 07:41] LABS: HEMOGLOBIN 11.6 g/dL (12.0-15.5)
[2018-03-13 07:44] LABS: ABSOLUTE LYMPHOCYTES# (MANUAL) 1.2 10^3/uL (0.5-4.7); ABSOLUTE MONOCYTES # (MANUAL) 1.6 10^3/uL (0.1-1.4); ANISOCYTOSIS 2+; BAND NEUTROPHILS % (MANUAL) 1 % (3-5); BASOPHILS % (MANUAL) 2 % (0-2); EOSINOPHILS % (MANUAL) 1 % (0-6); LYMPHOCYTES % (MANUAL) 11 % (13-45); MONOCYTES % (MANUAL) 14 % (3-13); NUCLEATED RED BLOOD CELLS 3 /100 WBC (0); PLATELET COMMENT ADEQUATE; POLYCHROMASIA 1+; SEGMENTED NEUTROPHILS % (MAN) 71 % (42-78); TOTAL CELLS COUNTED 100
[2018-03-13] MEDS: SEVELAMER HCL 800 MG TABLET PO SCH ×3 (10:49→17:58)
[2018-03-13] MEDS: POTASSIUM CHLORIDE 20 MEQ/15 ML UDCUP PO SCH (10:50)
[2018-03-13] MEDS: METOPROLOL TARTRATE 25 MG TABLET PO SCH ×2 (10:51→21:11)
[2018-03-13] MEDS: FUROSEMIDE 80 MG TABLET PO SCH (10:51)
[2018-03-13] MEDS: ALLOPURINOL 100 MG TABLET PO SCH (10:51)
[2018-03-13] MEDS: LIDOCAINE 5% (700 MG) TRANSDERMAL ADH..PATCH TP SCH (10:52)
[2018-03-13] MEDS: MAGNESIUM OXIDE 400 MG TABLET PO SCH (10:52)
[2018-03-13] MEDS: MEGESTROL ACETATE SUSP 400 MG/10 ML UDCUP PO SCH (10:53)
[2018-03-13] MEDS: FAMOTIDINE INJ/PF 20 MG/2 ML SDV IV SCH (10:55)
[2018-03-13] MEDS: OLOPATADINE HCL 0.1% OPH SOLN 5 ML OU SCH ×2 (10:55→17:58)
[2018-03-13] MEDS: NORMAL SALINE IV SCH (10:55)
[2018-03-13] MEDS: SODIUM THIOSULFATE IV SCH (10:55)
[2018-03-13] MEDS: SILVER SULFADIAZINE 1% CREAM 400 GM TP SCH ×4 (10:56→21:19)
--- NOTE | 2018-03-13 19:21 | PDOC PROGRESS REPORT ---
Subjective Progress Note for:: 03/13/18 Subjective:: Patient has several episodes of diarrhea and her stool c. difficile toxin titer was reported positive. No reported fever. No chest pain or difficulty with breathing. On going peritoneal dialysis. Remain on IV Zosyn coverage. Echo completed but official report pending. Reason For Visit: SEPSIS Physical Exam Vital Signs: Temp Pulse Resp BP Pulse Ox 97.6 F 70 22 H 128/76 H 100 03/13/18 12:00 03/13/18 14:00 03/13/18 12:00 03/13/18 15:30 03/13/18 10:43 Intake & Output 03/12/18 03/13/18 03/14/18 06:59 06:59 06:59 Intake Total 4976 6000 1250 Output Total 4325 5450 1850 Balance 651 550 -600 Weight 72 kg 81.9 kg Physical Exam: General appearance: PRESENT: no acute distress, disheveled - chronically ill looking Head exam: PRESENT: atraumatic, normocephalic Eye exam: PRESENT: conjunctiva pink, EOMI, PERRLA. ABSENT: scleral icterus Respiratory exam: PRESENT: clear to auscultation milana, decreased breath sounds - at lung bases Cardiovascular exam: PRESENT: RRR, systolic murmur. ABSENT: diastolic murmur, rubs Murmur grade: 3 Vascular exam: ABSENT: pallor GI/Abdominal exam: PRESENT: normal bowel sounds, soft. ABSENT: ascites, mass, rebound, tenderness Extremities exam: ABSENT: pedal edema Musculoskeletal exam: PRESENT: deformity - related to multiple joint involvement with arthritis, tenderness - multiple sports tenderness Neurological exam: PRESENT: alert, awake - and appropriate in simple responses Psychiatric exam: PRESENT: appropriate affect. ABSENT: agitated, anxious, homicidal ideation, suicidal ideation Skin exam: PRESENT: dry, wound vac to debrided wound on right thigh lateral aspect, sacral regions of pressure ulcer Murmur grade: 3 Murmur grade: 3 Results Laboratory Results: 03/13/18 06:06 03/13/18 06:06 03/13/18 03/13/18 06:06 06:06 WBC 11.1 H RBC 3.67 L Hgb 11.6 L D Hct 34.5 L MCV 94 D MCH 31.7 MCHC 33.7 RDW 19.7 H Plt Count 158 Seg Neutrophils % Not Reportable Lymphocytes % Not Reportable Monocytes % Not Reportable Eosinophils % Not Reportable Basophils % Not Reportable Absolute Neutrophils Not Reportable Absolute Lymphocytes Not Reportable Absolute Monocytes Not Reportable Absolute Eosinophils Not Reportable Absolute Basophils Not Reportable Sodium 141.7 Potassium 4.3 Chloride 98 Carbon Dioxide 20 L Anion Gap 24 H BUN 48 H Creatinine 6.23 H Est GFR ( Amer) 8 L Est GFR (Non-Af Amer) 6 L Glucose 110 Calcium 9.6 03/11/18 19:39 Thigh - Right Gram Stain - Final Impressions: Chest X-Ray 03/07/18 16:04 IMPRESSION: HEART ENLARGED WITHOUT FAILURE. NO OTHER SIGNIFICANT RADIOGRAPHIC FINDING IN THE CHEST. Head CT 03/08/18 00:00 IMPRESSION: 1. No acute intracranial finding 2. Moderate cerebral atrophy and intracranial findings suggesting chronic microvascular disease. TECHNICAL DOCUMENTATION: Quality ID # 436: Final reports with documentation of one or more dose reduction techniques (e.g., Automated exposure control, adjustment of the mA and/or kV according to patient size, use of iterative reconstruction technique) 2010 [employer]- All Rights Reserved Knee X-Ray 03/09/18 00:00 IMPRESSION: Patellofemoral degenerative changes. Assessment & Plan - Diagnosis (1) Sepsis Qualifiers: Sepsis type: sepsis due to unspecified organism Qualified Code(s): A41.9 - Sepsis, unspecified organism Is this a current diagnosis for this admission?: Yes 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 (10) Anemia due to chronic disease treated with erythropoietin Is this a current diagnosis for this admission?: Yes Plan: Post transfusion CBC revealed satisfactory Hgb level at 11.6 gm/dL. (11) Hypertension Qualifiers: Hypertension type: essential hypertension Qualified Code(s): I10 - Essential (primary) hypertension Is this a current diagnosis for this admission?: Yes (12) Clostridium difficile diarrhea Is this a current diagnosis for this admission?: Yes Plan: See attending physician order. - Time Time Spent with patient: 25-34 minutes Medications reviewed and adjusted accordingly: Yes Anticipated discharge: Home with Homehealth, Hospice Within: Other - Inpatient Certification Based on my medical assessment, after consideration of the patient's comorbidities, presenting symptoms, or acuity I expect that the services needed warrant INPATIENT care.: Yes I certify that my determination is in accordance with my understanding of Medicare's requirements for reasonable and necessary INPATIENT services [42 CFR 412.3e].: Yes Medical Necessity: Need Close Monitoring Due to Risk of Patient Decompensation, Need For IV Fluids, Need For Continuous Telemetry Monitoring, Need for IV Antibiotics, Risk of Complication if Not Cared For in Hospital Post Hospital Care: D/C Hebrew Cantor Documentation - Plan Summary Plan Summary: See attending physician orders.
[2018-03-13] MEDS: METRONIDAZOLE 250 MG TABLET PO SCH ×2 (21:12→23:15)
--- NOTE | 2018-03-13 22:19 | PDOC PROGRESS REPORT ---
Subjective Progress Note for:: 03/13/18 Subjective:: Drowsy but arousable Reason For Visit: SEPSIS Physical Exam Vital Signs: Temp Pulse Resp BP Pulse Ox 97.4 F 70 16 124/64 100 03/13/18 15:30 03/13/18 21:29 03/13/18 15:30 03/13/18 21:29 03/13/18 15:30 Intake & Output 03/12/18 03/13/18 03/14/18 06:59 06:59 06:59 Intake Total 4976 6000 2350 Output Total 4325 5424 4350 Balance 651 550 -2000 Weight 72 kg 81.9 kg 81 kg Exam: Vac in place Results Laboratory Results: 03/13/18 06:06 03/13/18 06:06 03/13/18 03/13/18 06:06 06:06 WBC 11.1 H RBC 3.67 L Hgb 11.6 L D Hct 34.5 L MCV 94 D MCH 31.7 MCHC 33.7 RDW 19.7 H Plt Count 158 Seg Neutrophils % Not Reportable Lymphocytes % Not Reportable Monocytes % Not Reportable Eosinophils % Not Reportable Basophils % Not Reportable Absolute Neutrophils Not Reportable Absolute Lymphocytes Not Reportable Absolute Monocytes Not Reportable Absolute Eosinophils Not Reportable Absolute Basophils Not Reportable Sodium 141.7 Potassium 4.3 Chloride 98 Carbon Dioxide 20 L Anion Gap 24 H BUN 48 H Creatinine 6.23 H Est GFR ( Amer) 8 L Est GFR (Non-Af Amer) 6 L Glucose 110 Calcium 9.6 03/11/18 19:39 Thigh - Right Gram Stain - Final Impressions: Chest X-Ray 03/07/18 16:04 IMPRESSION: HEART ENLARGED WITHOUT FAILURE. NO OTHER SIGNIFICANT RADIOGRAPHIC FINDING IN THE CHEST. Head CT 03/08/18 00:00 IMPRESSION: 1. No acute intracranial finding 2. Moderate cerebral atrophy and intracranial findings suggesting chronic microvascular disease. TECHNICAL DOCUMENTATION: Quality ID # 436: Final reports with documentation of one or more dose reduction techniques (e.g., Automated exposure control, adjustment of the mA and/or kV according to patient size, use of iterative reconstruction technique) 2010 [employer]- All Rights Reserved Knee X-Ray 03/09/18 00:00 IMPRESSION: Patellofemoral degenerative changes. Assessment & Plan - Diagnosis (1) coagulopathy due to coumadin Is this a current diagnosis for this admission?: Yes - Time Time Spent with patient: Less than 15 minutes - Plan Summary Plan Summary: Will check wound and replace wound vac tomorrow.. If wound looks good could probably stop IV antibiotics for abscess since the whole abscess cavity was excised. May help with C Diff mx
[2018-03-14] MEDS: HYDROMORPHONE HCL INJ/PF 2 MG/ML AMPULE IV PRN ×3 (01:57→18:03)
[2018-03-14] MEDS: METRONIDAZOLE 250 MG TABLET PO SCH ×4 (06:22→23:12)
[2018-03-14] MEDS: PIPERACILLIN SODIUM/TAZOBACTAM 2.25 GM in NORMAL SALINE 50 ML IV SCH ×3 (06:22→23:11)
[2018-03-14] MEDS: FENTANYL 100 MCG/HR PATCH.TD72 TD SCH (10:37)
[2018-03-14] MEDS: SEVELAMER HCL 800 MG TABLET PO SCH ×3 (10:38→18:01)
[2018-03-14] MEDS: LIDOCAINE 5% (700 MG) TRANSDERMAL ADH..PATCH TP SCH (10:38)
[2018-03-14] MEDS: MAGNESIUM OXIDE 400 MG TABLET PO SCH (10:39)
[2018-03-14] MEDS: ALLOPURINOL 100 MG TABLET PO SCH (10:39)
[2018-03-14] MEDS: METOPROLOL TARTRATE 25 MG TABLET PO SCH ×3 (10:39→23:12)
[2018-03-14] MEDS: FUROSEMIDE 80 MG TABLET PO SCH (10:39)
[2018-03-14] MEDS: POTASSIUM CHLORIDE 20 MEQ/15 ML UDCUP PO SCH (10:41)
[2018-03-14] MEDS: MEGESTROL ACETATE SUSP 400 MG/10 ML UDCUP PO SCH (10:41)
[2018-03-14] MEDS: FAMOTIDINE INJ/PF 20 MG/2 ML SDV IV SCH (10:42)
[2018-03-14] MEDS: SILVER SULFADIAZINE 1% CREAM 400 GM TP SCH ×3 (10:42→23:12)
[2018-03-14] MEDS: SODIUM THIOSULFATE IV SCH (10:43)
[2018-03-14] MEDS: NORMAL SALINE IV SCH (10:43)
[2018-03-14] MEDS: OLOPATADINE HCL 0.1% OPH SOLN 5 ML OU SCH ×2 (11:12→18:01)
[2018-03-14] MEDS ORDERED: VANCOMYCIN HCL INJ 1000 MG VIAL IPER SCH (13:00)
--- NOTE | 2018-03-14 14:01 | PDOC PROGRESS REPORT ---
Subjective Progress Note for:: 03/14/18 Subjective:: Patient is currently being covered by Dr. Parra and me while Dr. Cooper is gone. Saturday before she left, she asked that the patient be arranged to have their PICC line removed after the last dose of sodium thiosulfate. Orders have been placed for removal of the PICC line. Peripheral access may need to be gained. If peripheral access can not be gained but is needed, surgery will need to be consulted to place a central line. Patient was seen laying in bed. She was in the process of an exchange for PD. Reason For Visit: SEPSIS Physical Exam Vital Signs: Temp Pulse Resp BP Pulse Ox 98.4 F 69 20 128/78 H 98 03/14/18 01:43 03/14/18 07:53 03/14/18 01:43 03/14/18 07:53 03/14/18 01:43 Intake & Output 03/13/18 03/14/18 03/15/18 06:59 06:59 06:59 Intake Total 6000 3500 1000 Output Total 5450 5550 1200 Balance 550 -2050 -200 Weight 81.9 kg 77 kg 79 kg General appearance: PRESENT: no acute distress, well-developed, well-nourished Mouth exam: PRESENT: moist, neck supple Neck exam: ABSENT: JVD Cardiovascular exam: PRESENT: RRR, +S1, +S2 GI/Abdominal exam: PRESENT: ascites, distended, firm Extremities exam: PRESENT: +1 edema. ABSENT: pedal edema, tenderness, +2 edema Musculoskeletal exam: ABSENT: normal inspection, tenderness Neurological exam: PRESENT: alert, awake Results Laboratory Results: 03/13/18 06:06 03/13/18 06:06 03/11/18 19:39 Thigh - Right Gram Stain - Final Impressions: Chest X-Ray 03/07/18 16:04 IMPRESSION: HEART ENLARGED WITHOUT FAILURE. NO OTHER SIGNIFICANT RADIOGRAPHIC FINDING IN THE CHEST. Head CT 03/08/18 00:00 IMPRESSION: 1. No acute intracranial finding 2. Moderate cerebral atrophy and intracranial findings suggesting chronic microvascular disease. TECHNICAL DOCUMENTATION: Quality ID # 436: Final reports with documentation of one or more dose reduction techniques (e.g., Automated exposure control, adjustment of the mA and/or kV according to patient size, use of iterative reconstruction technique) 2010 [employer]- All Rights Reserved Knee X-Ray 03/09/18 00:00 IMPRESSION: Patellofemoral degenerative changes. Assessment & Plan - Diagnosis (1) Calciphylaxis Is this a current diagnosis for this admission?: Yes Plan: receiving last dose of sodium thiosulfate and then the PICC line will be removed. (2) End stage renal disease Is this a current diagnosis for this admission?: Yes Plan: currently on PD (3) Anemia due to chronic disease treated with erythropoietin Is this a current diagnosis for this admission?: Yes Plan: on procrit (4) Clostridium difficile diarrhea Is this a current diagnosis for this admission?: Yes Plan: on flagyl
--- NOTE | 2018-03-14 18:04 | PDOC PROGRESS REPORT ---
Subjective Progress Note for:: 03/14/18 Subjective:: Nursing staff reported that patient had several episodes of diarrhea so far today. No reported fever. There is expressed widespread tenderness with fairly satisfactory pain management on current regimen. No difficulty with breathing. She remain on peritoneal dialysis and IV Zosyn therapy. Reason For Visit: SEPSIS Physical Exam Vital Signs: Temp Pulse Resp BP Pulse Ox 98.4 F 70 20 135/64 H 98 03/14/18 01:43 03/14/18 14:00 03/14/18 01:43 03/14/18 11:30 03/14/18 01:43 Intake & Output 03/13/18 03/14/18 03/15/18 06:59 06:59 06:59 Intake Total 6000 3500 2075 Output Total 5450 5550 2600 Balance 550 -2049 -525 Weight 81.9 kg 77 kg 79 kg Physical Exam: General appearance: PRESENT: no acute distress, disheveled - chronically ill looking Head exam: PRESENT: atraumatic, normocephalic Eye exam: PRESENT: conjunctiva pink, EOMI, PERRLA. ABSENT: scleral icterus Respiratory exam: PRESENT: clear to auscultation milana, decreased breath sounds - at lung bases Cardiovascular exam: PRESENT: RRR, systolic murmur. ABSENT: diastolic murmur, rubs Murmur grade: 3 Vascular exam: ABSENT: pallor GI/Abdominal exam: PRESENT: normal bowel sounds, soft. ABSENT: ascites, mass, rebound, tenderness Extremities exam: ABSENT: pedal edema Musculoskeletal exam: PRESENT: deformity - related to multiple joint involvement with arthritis, tenderness - multiple sports tenderness Neurological exam: PRESENT: alert, awake - and appropriate in simple responses Psychiatric exam: PRESENT: appropriate affect. ABSENT: agitated, anxious, homicidal ideation, suicidal ideation Skin exam: PRESENT: dry, wound vac on right thigh wound, sacral regions of pressure ulcer Murmur grade: 3 Results Laboratory Results: 03/13/18 06:06 03/13/18 06:06 03/11/18 19:39 Thigh - Right Gram Stain - Final Impressions: Chest X-Ray 03/07/18 16:04 IMPRESSION: HEART ENLARGED WITHOUT FAILURE. NO OTHER SIGNIFICANT RADIOGRAPHIC FINDING IN THE CHEST. Head CT 03/08/18 00:00 IMPRESSION: 1. No acute intracranial finding 2. Moderate cerebral atrophy and intracranial findings suggesting chronic microvascular disease. TECHNICAL DOCUMENTATION: Quality ID # 436: Final reports with documentation of one or more dose reduction techniques (e.g., Automated exposure control, adjustment of the mA and/or kV according to patient size, use of iterative reconstruction technique) 2010 [employer]- All Rights Reserved Knee X-Ray 03/09/18 00:00 IMPRESSION: Patellofemoral degenerative changes. Assessment & Plan - Diagnosis (1) Sepsis Qualifiers: Sepsis type: sepsis due to unspecified organism Qualified Code(s): A41.9 - Sepsis, unspecified organism Is this a current diagnosis for this admission?: Yes Plan: Continue current antibiotic therapy. In view of her severe valvular disease and pacemaker interference with adequate vegetation assessment I will treat her as probable case of endocarditis. Follow up on WBC and clinical indices for monitoring improvement. 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, on chronic dialysis Is this a current diagnosis for this admission?: Yes (10) Anemia due to chronic disease treated with erythropoietin Is this a current diagnosis for this admission?: Yes (11) Hypertension Qualifiers: Hypertension type: essential hypertension Qualified Code(s): I10 - Essential (primary) hypertension Is this a current diagnosis for this admission?: Yes (12) Clostridium difficile diarrhea Is this a current diagnosis for this admission?: Yes - Time Time Spent with patient: 25-34 minutes Medications reviewed and adjusted accordingly: Yes Anticipated discharge: Home with Homehealth, Hospice - I will continue to discuss with family regarding outcome expectation. Her prognosis remain very poor and she will benefit from hospice / palliative care program placement. Within: Other - Inpatient Certification Based on my medical assessment, after consideration of the patient's comorbidities, presenting symptoms, or acuity I expect that the services needed warrant INPATIENT care.: Yes I certify that my determination is in accordance with my understanding of Medicare's requirements for reasonable and necessary INPATIENT services [42 CFR 412.3e].: Yes Medical Necessity: Need Close Monitoring Due to Risk of Patient Decompensation, Need For Continuous Telemetry Monitoring, Need for IV Antibiotics, Risk of Complication if Not Cared For in Hospital Post Hospital Care: D/C Sis[employer] Operator Documentation - Plan Summary Plan Summary: Continue current medication management. Follow up on repeat blood culture findings.
--- NOTE | 2018-03-14 19:45 | PDOC PROGRESS REPORT ---
Subjective Progress Note for:: 03/14/18 Subjective:: pains lower extremities Reason For Visit: SEPSIS Physical Exam Vital Signs: Temp Pulse Resp BP Pulse Ox 98.4 F 70 20 135/64 H 98 03/14/18 01:43 03/14/18 14:00 03/14/18 01:43 03/14/18 11:30 03/14/18 01:43 Intake & Output 03/13/18 03/14/18 03/15/18 06:59 06:59 06:59 Intake Total 6000 3500 2375 Output Total 5450 5550 2600 Balance 063 -3848 -852 Weight 81.9 kg 77 kg 79 kg Exam: Wound vac removed. There is no collection on the right thigh. The wound itself looks clean with just starting granulation tissue. Results Laboratory Results: 03/13/18 06:06 03/13/18 06:06 03/11/18 19:39 Thigh - Right Gram Stain - Final Impressions: Chest X-Ray 03/07/18 16:04 IMPRESSION: HEART ENLARGED WITHOUT FAILURE. NO OTHER SIGNIFICANT RADIOGRAPHIC FINDING IN THE CHEST. Head CT 03/08/18 00:00 IMPRESSION: 1. No acute intracranial finding 2. Moderate cerebral atrophy and intracranial findings suggesting chronic microvascular disease. TECHNICAL DOCUMENTATION: Quality ID # 436: Final reports with documentation of one or more dose reduction techniques (e.g., Automated exposure control, adjustment of the mA and/or kV according to patient size, use of iterative reconstruction technique) 2010 [employer]- All Rights Reserved Knee X-Ray 03/09/18 00:00 IMPRESSION: Patellofemoral degenerative changes. Assessment & Plan - Diagnosis (1) coagulopathy due to coumadin Is this a current diagnosis for this admission?: Yes - Time Time Spent with patient: 15-24 minutes - Plan Summary Plan Summary: Wound Vac re-applied to right thigh wound. Will need changing every 3 days. Call me if needed a central (internal jugular vein) line if Picc line needed to be pulled out
--- NOTE | 2018-03-14 21:11 | XCELERA REPORT ---
[address] [address] Transthoracic Echocardiogram Report Name: NANCY BIRMINGHAM Age: 83 yrs Gender: Female : 1935 Patient Status: Inpatient Patient Location: [address] [place] [address] Study Date: 03/13/2018 09:14 AM Height: 60 in Weight: 159 lb BSA: 1.7 m2 Procedure: A two-dimensional transthoracic echocardiogram with color flow Doppler was performed. The study was technically difficult with many images being suboptimal in quality. Reason For Study: Sepsis with systolic murmur r/o vegetation History: EPSIS / SYSTOLIC MURMUR / VALVULAR VEGEAGTATIONS>. Ordering Physician: JUNO VILLALBA Performed By: Maryam Serrano Interpretation Summary No gross vegetatations seen. Recommend KARIS if clinically indicated. The left ventricle is borderline dilated. There is normal left ventricular wall thickness. LV EF is 50% Left ventricular systolic function is borderline reduced. Doppler measurements suggest normal left ventricular diastolic function There is borderline global hypokinesis of the left ventricle. The right ventricle is mildly dilated. There is mild right ventricular hypertrophy. The right ventricular systolic function is normal. Pacemaker lead in RV and RA. The right atrium is moderately dilated. The left atrium is moderately dilated. The interatrial septum is intact with no evidence for an atrial septal defect. There is no evidence of mitral valve prolapse. There is no vegetation seen on the mitral valve. There is no mitral valve stenosis. There is a severe amount of mitral regurgitation Flow reversal noted in pulmonary veins consistent with significant mitral regurgitation. There is no aortic valvular vegetation. There is no aortic valve stenosis There is no LVOT obstruction. There is a trace to mild amount of aortic regurgitation There is no tricuspid stenosis. There is a severe amount of tricuspid regurgitation There is servere pulmonary hypertension by echo RVSPis 69 to 74 mm of Hg , with RA mean of 15 to 20. There is no pulmonic valvular stenosis. There is no vegetation on the pulmonic valve. There is a moderate amount of pulmonic regurgitation There is no pericardial effusion. No gross vegetatations seen. Recommend KARIS if clinically indicated. MMode/2D Measurements & Calculations RVDd: 3.2 cm LVIDd: 5.8 cm FS: 28.8 % Ao root diam: 2.3 cm IVSd: 0.78 cm LVIDs: 4.1 cm EDV(Teich): 164.8 ml Ao root area: 4.1 cm2 LVPWd: 0.78 cm ESV(Teich): 74.7 ml EF(Teich): 54.7 % Doppler Measurements & Calculations MV E max negro: MV dec slope: Ao V2 max: AI max negro: 117.5 cm/sec 697.6 cm/sec2 152.4 cm/sec 388.3 cm/sec MV A max negro: MV dec time: Ao max PG: AI max P.3 mmHg 45.5 cm/sec 0.17 sec 9.3 mmHg AI dec slope: MV E/A: 2.6 203.6 cm/sec2 AI P1/2t: 558.4 msec LV V1 max PG: MR max negro: PA V2 max: TR max negro: 1.7 mmHg 556.4 cm/sec 81.3 cm/sec 338.3 cm/sec LV V1 max: MR max PG: PA max PG: TR max P.2 mmHg 64.6 cm/sec 123.8 mmHg 2.6 mmHg Left Ventricle The left ventricle is borderline dilated. There is normal left ventricular wall thickness. LV EF is 50%. Left ventricular systolic function is borderline reduced. Doppler measurements suggest normal left ventricular diastolic function. There is borderline global hypokinesis of the left ventricle. Apical wall motion abnormality may reflect pacemaker activation. Right Ventricle The right ventricle is mildly dilated. Pacemaker lead in RV and RA. There is mild right ventricular hypertrophy. The right ventricular systolic function is normal. Atria The right atrium is moderately dilated. The left atrium is moderately dilated. The interatrial septum is intact with no evidence for an atrial septal defect. Mitral Valve There is no evidence of mitral valve prolapse. There is no vegetation seen on the mitral valve. There is no mitral valve stenosis. There is a severe amount of mitral regurgitation. Flow reversal noted in pulmonary veins consistent with significant mitral regurgitation. Aortic Valve There is no aortic valvular vegetation. There is no aortic valve stenosis. There is no LVOT obstruction. There is a trace to mild amount of aortic regurgitation. Tricuspid Valve There is no tricuspid stenosis. There is a severe amount of tricuspid regurgitation. There is servere pulmonary hypertension by echo. RVSPis 69 to 74 mm of Hg , with RA mean of 15 to 20. Pulmonic Valve There is no vegetation on the pulmonic valve. There is no pulmonic valvular stenosis. There is a moderate amount of pulmonic regurgitation. Great Vessels The aortic root is normal size. Effusions There is no pericardial effusion. : JUNO VILLALBA > Laura Chawla
[2018-03-14] MEDS: PHARMACY COMMUNICATION ORDER MC SCH (22:00)
[2018-03-15] MEDS: HYDROMORPHONE HCL INJ/PF 2 MG/ML AMPULE IV PRN ×4 (02:19→18:42)
[2018-03-15] MEDS: PIPERACILLIN SODIUM/TAZOBACTAM 2.25 GM in NORMAL SALINE 50 ML IV SCH ×3 (05:06→22:24)
[2018-03-15] MEDS: METRONIDAZOLE 250 MG TABLET PO SCH ×3 (05:08→18:42)
[2018-03-15] MEDS: POTASSIUM CHLORIDE 20 MEQ/15 ML UDCUP PO SCH (12:24)
[2018-03-15] MEDS: FUROSEMIDE 80 MG TABLET PO SCH (12:24)
[2018-03-15] MEDS: ALLOPURINOL 100 MG TABLET PO SCH (12:25)
[2018-03-15] MEDS: METOPROLOL TARTRATE 25 MG TABLET PO SCH ×2 (12:25→22:25)
[2018-03-15] MEDS: SEVELAMER HCL 800 MG TABLET PO SCH ×3 (12:25→18:49)
[2018-03-15] MEDS: FAMOTIDINE INJ/PF 20 MG/2 ML SDV IV SCH (12:25)
[2018-03-15] MEDS: LIDOCAINE 5% (700 MG) TRANSDERMAL ADH..PATCH TP SCH (12:26)
[2018-03-15] MEDS: MAGNESIUM OXIDE 400 MG TABLET PO SCH (12:26)
[2018-03-15] MEDS: OLOPATADINE HCL 0.1% OPH SOLN 5 ML OU SCH ×2 (12:26→18:48)
[2018-03-15] MEDS: MEGESTROL ACETATE SUSP 400 MG/10 ML UDCUP PO SCH (12:26)
[2018-03-15] MEDS: SILVER SULFADIAZINE 1% CREAM 400 GM TP SCH ×4 (12:27→22:29)
--- NOTE | 2018-03-15 20:24 | PDOC PROGRESS REPORT ---
Subjective Progress Note for:: 03/15/18 Subjective:: Less diarrhea so far today. No reported fever. No difficulty with breathing. She remain on peritoneal dialysis and IV Zosyn therapy. Reason For Visit: SEPSIS Physical Exam Vital Signs: Temp Pulse Resp BP Pulse Ox 98.3 F 69 16 119/60 100 03/15/18 19:52 03/15/18 19:52 03/15/18 19:52 03/15/18 19:52 03/15/18 19:52 Intake & Output 03/14/18 03/15/18 03/16/18 06:59 06:59 06:59 Intake Total 3500 5625 2472 Output Total 5550 6500 2200 Balance -2049 272 Weight 77 kg 78 kg 79.9 kg Physical Exam: General appearance: PRESENT: no acute distress, disheveled - chronically ill looking Head exam: PRESENT: atraumatic, normocephalic Eye exam: PRESENT: conjunctiva pink, EOMI, PERRLA. ABSENT: scleral icterus Respiratory exam: PRESENT: clear to auscultation milana, decreased breath sounds - at lung bases Cardiovascular exam: PRESENT: RRR, systolic murmur. ABSENT: diastolic murmur, rubs Murmur grade: 3 Vascular exam: ABSENT: pallor GI/Abdominal exam: PRESENT: normal bowel sounds, soft. ABSENT: ascites, mass, rebound, tenderness Extremities exam: ABSENT: pedal edema Musculoskeletal exam: PRESENT: deformity - related to multiple joint involvement with arthritis, tenderness - multiple sports tenderness Neurological exam: PRESENT: alert, awake - and appropriate in simple responses Psychiatric exam: PRESENT: appropriate affect. ABSENT: agitated, anxious, homicidal ideation, suicidal ideation Skin exam: PRESENT: dry, wound vac on right thigh wound, sacral regions of pressure ulcer Murmur grade: 3 Results Laboratory Results: 03/13/18 06:06 03/13/18 06:06 Impressions: Chest X-Ray 03/07/18 16:04 IMPRESSION: HEART ENLARGED WITHOUT FAILURE. NO OTHER SIGNIFICANT RADIOGRAPHIC FINDING IN THE CHEST. Head CT 03/08/18 00:00 IMPRESSION: 1. No acute intracranial finding 2. Moderate cerebral atrophy and intracranial findings suggesting chronic microvascular disease. TECHNICAL DOCUMENTATION: Quality ID # 436: Final reports with documentation of one or more dose reduction techniques (e.g., Automated exposure control, adjustment of the mA and/or kV according to patient size, use of iterative reconstruction technique) 2010 [employer]- All Rights Reserved Knee X-Ray 03/09/18 00:00 IMPRESSION: Patellofemoral degenerative changes. Assessment & Plan - Diagnosis (1) Sepsis Qualifiers: Sepsis type: sepsis due to unspecified organism Qualified Code(s): A41.9 - Sepsis, unspecified organism Is this a current diagnosis for this admission?: Yes 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, on chronic dialysis Is this a current diagnosis for this admission?: Yes (10) Anemia due to chronic disease treated with erythropoietin Is this a current diagnosis for this admission?: Yes (11) Hypertension Qualifiers: Hypertension type: essential hypertension Qualified Code(s): I10 - Essential (primary) hypertension Is this a current diagnosis for this admission?: Yes (12) Clostridium difficile diarrhea Is this a current diagnosis for this admission?: Yes - Time Time Spent with patient: 25-34 minutes Medications reviewed and adjusted accordingly: Yes Anticipated discharge: [facility]: Other - Inpatient Certification Based on my medical assessment, after consideration of the patient's comorbidities, presenting symptoms, or acuity I expect that the services needed warrant INPATIENT care.: Yes I certify that my determination is in accordance with my understanding of Medicare's requirements for reasonable and necessary INPATIENT services [42 CFR 412.3e].: Yes Medical Necessity: Need Close Monitoring Due to Risk of Patient Decompensation, Need For IV Fluids, Need For Continuous Telemetry Monitoring, Need for IV Antibiotics, Risk of Complication if Not Cared For in Hospital - Plan Summary Plan Summary: See attending physician orders. Over all prognosis remain very poor with bed bound status functional level.
[2018-03-15] MEDS: PHARMACY COMMUNICATION ORDER MC SCH (22:22)
[2018-03-16] MEDS: METRONIDAZOLE 250 MG TABLET PO SCH ×4 (04:51→23:09)
[2018-03-16] MEDS: PIPERACILLIN SODIUM/TAZOBACTAM 2.25 GM in NORMAL SALINE 50 ML IV SCH ×3 (05:13→22:28)
[2018-03-16] MEDS: FUROSEMIDE 80 MG TABLET PO SCH (10:26)
[2018-03-16] MEDS: FAMOTIDINE INJ/PF 20 MG/2 ML SDV IV SCH (10:26)
[2018-03-16] MEDS: ALLOPURINOL 100 MG TABLET PO SCH (10:26)
[2018-03-16] MEDS: METOPROLOL TARTRATE 25 MG TABLET PO SCH ×2 (10:27→22:29)
[2018-03-16] MEDS: MAGNESIUM OXIDE 400 MG TABLET PO SCH (10:27)
[2018-03-16] MEDS: POTASSIUM CHLORIDE 20 MEQ/15 ML UDCUP PO SCH (10:27)
[2018-03-16] MEDS: HYDROMORPHONE HCL INJ/PF 2 MG/ML AMPULE IV PRN ×3 (10:27→16:04)
[2018-03-16] MEDS: LIDOCAINE 5% (700 MG) TRANSDERMAL ADH..PATCH TP SCH (10:28)
[2018-03-16] MEDS: MEGESTROL ACETATE SUSP 400 MG/10 ML UDCUP PO SCH (10:28)
[2018-03-16] MEDS: EPOETIN ALFA INJ 40000 UNIT/1 ML (RENAL) SUBCUT SCH (10:28)
[2018-03-16] MEDS: OLOPATADINE HCL 0.1% OPH SOLN 5 ML OU SCH ×2 (10:28→18:48)
[2018-03-16] MEDS: SILVER SULFADIAZINE 1% CREAM 400 GM TP SCH ×4 (10:29→22:28)
[2018-03-16] MEDS: SEVELAMER HCL 800 MG TABLET PO SCH ×3 (10:47→18:57)
--- NOTE | 2018-03-16 17:54 | PDOC PROGRESS REPORT ---
Subjective Progress Note for:: 03/16/18 Subjective:: Less diarrhea and more formed stool. Remain on oral metronidazole therapy for C. difficile colitis. No fever or chills. Pain is fairly controlled on current regimen. Remain on peritoneal dialysis schedule. Reason For Visit: SEPSIS Physical Exam Vital Signs: Temp Pulse Resp BP Pulse Ox 97.8 F 71 20 109/73 100 03/16/18 15:24 03/16/18 16:20 03/16/18 15:24 03/16/18 16:20 03/16/18 15:24 Intake & Output 03/15/18 03/16/18 03/17/18 06:59 06:59 06:59 Intake Total 5625 5572 2168 Output Total 6500 6600 2300 Balance -350 -6678 -132 Weight 78 kg 78.8 kg 77.2 kg Physical Exam: General appearance: PRESENT: no acute distress, disheveled - chronically ill looking Head exam: PRESENT: atraumatic, normocephalic Eye exam: PRESENT: conjunctiva pink, EOMI, PERRLA. ABSENT: scleral icterus Respiratory exam: PRESENT: clear to auscultation milana, decreased breath sounds - at lung bases Cardiovascular exam: PRESENT: RRR, systolic murmur. ABSENT: diastolic murmur, rubs Murmur grade: 3 Vascular exam: ABSENT: pallor GI/Abdominal exam: PRESENT: normal bowel sounds, soft. ABSENT: ascites, mass, rebound, tenderness Extremities exam: ABSENT: pedal edema Musculoskeletal exam: PRESENT: deformity - related to multiple joint involvement with arthritis, tenderness - multiple sports tenderness Neurological exam: PRESENT: alert, awake - and appropriate in simple responses Psychiatric exam: PRESENT: appropriate affect. ABSENT: agitated, anxious, homicidal ideation, suicidal ideation Skin exam: PRESENT: dry, wound vac on right thigh wound, sacral regions of pressure ulcer Murmur grade: 3 Results Laboratory Results: 03/13/18 06:06 03/13/18 06:06 03/12/18 09:40 Peritoneal Dialysis Gram Stain - Final 03/12/18 09:40 Peritoneal Dialysis Body Fluid Culture - Final NO AEROBIC OR ANAEROBIC ORGANISMS RECOVERED 03/11/18 19:39 Thigh - Right Gram Stain - Final 03/11/18 19:39 Thigh - Right Wound Culture - Final Enterococcus Faecalis(Group D) Proteus Vulgaris Escherichia Coli No Anaerobic Organisms Impressions: Chest X-Ray 03/07/18 16:04 IMPRESSION: HEART ENLARGED WITHOUT FAILURE. NO OTHER SIGNIFICANT RADIOGRAPHIC FINDING IN THE CHEST. Head CT 03/08/18 00:00 IMPRESSION: 1. No acute intracranial finding 2. Moderate cerebral atrophy and intracranial findings suggesting chronic microvascular disease. TECHNICAL DOCUMENTATION: Quality ID # 436: Final reports with documentation of one or more dose reduction techniques (e.g., Automated exposure control, adjustment of the mA and/or kV according to patient size, use of iterative reconstruction technique) 2010 [employer]- All Rights Reserved Knee X-Ray 03/09/18 00:00 IMPRESSION: Patellofemoral degenerative changes. Assessment & Plan - Diagnosis (1) Sepsis Qualifiers: Sepsis type: sepsis due to unspecified organism Qualified Code(s): A41.9 - Sepsis, unspecified organism Is this a current diagnosis for this admission?: Yes 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, on chronic dialysis Is this a current diagnosis for this admission?: Yes (10) Anemia due to chronic disease treated with erythropoietin Is this a current diagnosis for this admission?: Yes (11) Hypertension Qualifiers: Hypertension type: essential hypertension Qualified Code(s): I10 - Essential (primary) hypertension Is this a current diagnosis for this admission?: Yes (12) Clostridium difficile diarrhea Is this a current diagnosis for this admission?: Yes - Time Time Spent with patient: 25-34 minutes Medications reviewed and adjusted accordingly: Yes Anticipated discharge: Home with Homehealth, [facility]: Other - Inpatient Certification Based on my medical assessment, after consideration of the patient's comorbidities, presenting symptoms, or acuity I expect that the services needed warrant INPATIENT care.: Yes I certify that my determination is in accordance with my understanding of Medicare's requirements for reasonable and necessary INPATIENT services [42 CFR 412.3e].: Yes Medical Necessity: Need Close Monitoring Due to Risk of Patient Decompensation, Need For IV Fluids, Need For Continuous Telemetry Monitoring, Need for IV Antibiotics, Risk of Complication if Not Cared For in Hospital Post Hospital Care: D/C Infertility Medical Assistant Documentation - Plan Summary Plan Summary: Continue current medication management. Patient is responding to Flagyl therapy for C.difficile colitis management. She will remain on IV Zosyn for few more days.
[2018-03-16] MEDS: PHARMACY COMMUNICATION ORDER MC SCH (22:23)
[2018-03-17] MEDS: PIPERACILLIN SODIUM/TAZOBACTAM 2.25 GM in NORMAL SALINE 50 ML IV SCH ×3 (05:25→22:41)
[2018-03-17] MEDS: METRONIDAZOLE 250 MG TABLET PO SCH ×3 (05:25→17:40)
[2018-03-17] MEDS: ALLOPURINOL 100 MG TABLET PO SCH (09:11)
[2018-03-17] MEDS: FUROSEMIDE 80 MG TABLET PO SCH (09:11)
[2018-03-17] MEDS: METOPROLOL TARTRATE 25 MG TABLET PO SCH ×2 (09:11→22:42)
[2018-03-17] MEDS: OLOPATADINE HCL 0.1% OPH SOLN 5 ML OU SCH ×2 (09:11→17:41)
[2018-03-17] MEDS: MAGNESIUM OXIDE 400 MG TABLET PO SCH (09:11)
[2018-03-17] MEDS: SEVELAMER HCL 800 MG TABLET PO SCH ×3 (09:11→17:39)
[2018-03-17] MEDS: POTASSIUM CHLORIDE 20 MEQ/15 ML UDCUP PO SCH (09:12)
[2018-03-17] MEDS: MEGESTROL ACETATE SUSP 400 MG/10 ML UDCUP PO SCH (09:12)
[2018-03-17] MEDS: FENTANYL 100 MCG/HR PATCH.TD72 TD SCH (09:13)
[2018-03-17] MEDS: LIDOCAINE 5% (700 MG) TRANSDERMAL ADH..PATCH TP SCH (09:14)
[2018-03-17] MEDS: SILVER SULFADIAZINE 1% CREAM 400 GM TP SCH ×4 (09:15→22:44)
[2018-03-17] MEDS: FAMOTIDINE INJ/PF 20 MG/2 ML SDV IV SCH (09:15)
[2018-03-17] MEDS: HYDROMORPHONE HCL INJ/PF 2 MG/ML AMPULE IV PRN ×3 (10:21→19:00)
[2018-03-17] MEDS: VANCOMYCIN HCL INJ 1000 MG VIAL IPER SCH (10:56)
--- NOTE | 2018-03-17 17:55 | PDOC PROGRESS REPORT ---
Subjective Progress Note for:: 03/17/18 Subjective:: Less diarrhea stool today. Tolerated peritoneal dialysis session. No chest pain or difficulty with breathing. No reported fever. Reason For Visit: SEPSIS Physical Exam Vital Signs: Temp Pulse Resp BP Pulse Ox 97.6 F 69 22 H 118/68 100 03/17/18 17:11 03/17/18 17:11 03/17/18 17:11 03/17/18 17:11 03/17/18 17:11 Intake & Output 03/16/18 03/17/18 03/18/18 06:59 06:59 06:59 Intake Total 5572 5845 1200 Output Total 6600 6450 1400 Balance -1028 -605 -200 Weight 78.8 kg 76.8 kg 78.6 kg Physical Exam: General appearance: PRESENT: no acute distress, disheveled - chronically ill looking Head exam: PRESENT: atraumatic, normocephalic Eye exam: PRESENT: conjunctiva pink, EOMI, PERRLA. ABSENT: scleral icterus Respiratory exam: PRESENT: clear to auscultation milana, decreased breath sounds - at lung bases Cardiovascular exam: PRESENT: RRR, systolic murmur. ABSENT: diastolic murmur, rubs Murmur grade: 3 Vascular exam: ABSENT: pallor GI/Abdominal exam: PRESENT: normal bowel sounds, soft. Peritoneal dialysis site dressing is satisfactory and dry. ABSENT: mass, rebound, tenderness Extremities exam: ABSENT: pedal edema Musculoskeletal exam: PRESENT: deformity - related to multiple joint involvement with arthritis, tenderness - multiple sports tenderness Neurological exam: PRESENT: alert, awake - and appropriate in simple responses Psychiatric exam: PRESENT: appropriate affect. ABSENT: agitated, anxious, homicidal ideation, suicidal ideation Skin exam: PRESENT: dry, wound vac on right thigh wound, sacral regions of pressure ulcer Murmur grade: 3 Results Laboratory Results: 03/13/18 06:06 03/13/18 06:06 03/12/18 12:08 Blood Blood Culture - Final NO GROWTH IN 5 DAYS 03/12/18 06:50 Blood Blood Culture - Final NO GROWTH IN 5 DAYS Impressions: Chest X-Ray 03/07/18 16:04 IMPRESSION: HEART ENLARGED WITHOUT FAILURE. NO OTHER SIGNIFICANT RADIOGRAPHIC FINDING IN THE CHEST. Head CT 03/08/18 00:00 IMPRESSION: 1. No acute intracranial finding 2. Moderate cerebral atrophy and intracranial findings suggesting chronic microvascular disease. TECHNICAL DOCUMENTATION: Quality ID # 436: Final reports with documentation of one or more dose reduction techniques (e.g., Automated exposure control, adjustment of the mA and/or kV according to patient size, use of iterative reconstruction technique) 2010 [employer]- All Rights Reserved Knee X-Ray 03/09/18 00:00 IMPRESSION: Patellofemoral degenerative changes. Assessment & Plan - Diagnosis (1) Sepsis Qualifiers: Sepsis type: sepsis due to unspecified organism Qualified Code(s): A41.9 - Sepsis, unspecified organism Is this a current diagnosis for this admission?: Yes 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, on chronic dialysis Is this a current diagnosis for this admission?: Yes (10) Anemia due to chronic disease treated with erythropoietin Is this a current diagnosis for this admission?: Yes (11) Hypertension Qualifiers: Hypertension type: essential hypertension Qualified Code(s): I10 - Essential (primary) hypertension Is this a current diagnosis for this admission?: Yes (12) Clostridium difficile diarrhea Is this a current diagnosis for this admission?: Yes - Time Time Spent with patient: 25-34 minutes Medications reviewed and adjusted accordingly: Yes Anticipated discharge: Home with Homehealth, [facility]: Other - Inpatient Certification Based on my medical assessment, after consideration of the patient's comorbidities, presenting symptoms, or acuity I expect that the services needed warrant INPATIENT care.: Yes I certify that my determination is in accordance with my understanding of Medicare's requirements for reasonable and necessary INPATIENT services [42 CFR 412.3e].: Yes Medical Necessity: Need Close Monitoring Due to Risk of Patient Decompensation, Need For Continuous Telemetry Monitoring, Need for IV Antibiotics, Risk of Complication if Not Cared For in Hospital Post Hospital Care: D/C Yard Specialist Documentation, D/C or Transfer Summary - Plan Summary Plan Summary: Continue on IV Zosyn until 03/20/18 . Maintain on Vancomycin therapy coverage for possible endocarditis based on culture and sensitivity report
[2018-03-17] MEDS ORDERED: NORMAL SALINE INJ/PF 0.9% 10 ML SDV IV PRN (17:57)
[2018-03-17] MEDS: PHARMACY COMMUNICATION ORDER MC SCH (22:43)
[2018-03-18] MEDS: METRONIDAZOLE 250 MG TABLET PO SCH ×4 (00:05→18:19)
[2018-03-18] MEDS: PIPERACILLIN SODIUM/TAZOBACTAM 2.25 GM in NORMAL SALINE 50 ML IV SCH ×3 (05:01→22:37)
[2018-03-18 09:39] LABS: HEMATOCRIT 38.7 % (36.0-47.0); HEMOGLOBIN 12.5 g/dL (12.0-15.5); MEAN CORPUSCULAR HEMOGLOBIN 31.7 pg (27.0-33.4); MEAN CORPUSCULAR HGB CONC 32.3 g/dL (32.0-36.0); PLATELET COUNT 164 10^3/uL (150-450); RED BLOOD COUNT 3.94 10^6/uL (3.72-5.28); RED CELL DISTRIBUTION WIDTH 21.5 % (11.5-14.0); WHITE BLOOD COUNT 9.5 10^3/uL (4.0-10.5)
[2018-03-18 09:46] LABS: MEAN CORPUSCULAR VOLUME 98 fl (80-97)
[2018-03-18 10:07] LABS: ABSOLUTE LYMPHOCYTES# (MANUAL) 1.6 10^3/uL (0.5-4.7); ABSOLUTE MONOCYTES # (MANUAL) 0.8 10^3/uL (0.1-1.4); BAND NEUTROPHILS % (MANUAL) 2 % (3-5); BASOPHILS % (MANUAL) 1 % (0-2); EOSINOPHILS % (MANUAL) 0 % (0-6); LYMPHOCYTES % (MANUAL) 17 % (13-45); METAMYELOCYTES % (MANUAL) 1 % (0); MONOCYTES % (MANUAL) 8 % (3-13); NUCLEATED RED BLOOD CELLS 3 /100 WBC (0); SEGMENTED NEUTROPHILS % (MAN) 71 % (42-78); TOTAL CELLS COUNTED 100
[2018-03-18 10:08] LABS: ANISOCYTOSIS 2+; BURR CELLS SLIGHT; OVALOCYTES 2+; PLATELET COMMENT ADEQUATE; POIKILOCYTOSIS 2+; POLYCHROMASIA 1+; TOXIC GRANULATION 1+; TOXIC VACUOLATION PRESENT
[2018-03-18] MEDS: ALLOPURINOL 100 MG TABLET PO SCH (10:20)
[2018-03-18] MEDS: METOPROLOL TARTRATE 25 MG TABLET PO SCH ×2 (10:21→22:37)
[2018-03-18] MEDS: MAGNESIUM OXIDE 400 MG TABLET PO SCH (10:21)
[2018-03-18] MEDS: FUROSEMIDE 80 MG TABLET PO SCH (10:21)
[2018-03-18] MEDS: POTASSIUM CHLORIDE 20 MEQ/15 ML UDCUP PO SCH (10:22)
[2018-03-18] MEDS: SEVELAMER HCL 800 MG TABLET PO SCH ×3 (10:22→18:19)
[2018-03-18] MEDS: MEGESTROL ACETATE SUSP 400 MG/10 ML UDCUP PO SCH (10:24)
[2018-03-18] MEDS: OLOPATADINE HCL 0.1% OPH SOLN 5 ML OU SCH ×2 (10:25→18:19)
[2018-03-18] MEDS: LIDOCAINE 5% (700 MG) TRANSDERMAL ADH..PATCH TP SCH (10:26)
[2018-03-18] MEDS: FAMOTIDINE INJ/PF 20 MG/2 ML SDV IV SCH (10:34)
[2018-03-18] MEDS: SILVER SULFADIAZINE 1% CREAM 400 GM TP SCH ×4 (10:34→22:38)
[2018-03-18] MEDS: HYDROMORPHONE HCL INJ/PF 2 MG/ML AMPULE IV PRN ×2 (11:23→17:03)
[2018-03-18 14:33] LABS: ALANINE AMINOTRANSFERASE 25 U/L (9-52); ALBUMIN 2.5 g/dL (3.5-5.0); ALKALINE PHOSPHATASE 70 U/L (38-126); ASPARTATE AMINO TRANSFERASE 21 U/L (14-36); BILIRUBIN,DIRECT 0.8 mg/dL (0.0-0.4); BILIRUBIN,TOTAL 0.9 mg/dL (0.2-1.3); BLOOD UREA NITROGEN 43 mg/dL (7-20); CALCIUM 9.1 mg/dL (8.4-10.2); CHLORIDE 98 mmol/L (98-107); GLUCOSE 151 mg/dL (75-110); POTASSIUM 4.1 mmol/L (3.6-5.0)
[2018-03-18 14:38] LABS: CARBON DIOXIDE 20 mmol/L (22-30); SODIUM 139.9 mmol/L (137-145)
[2018-03-18 14:39] LABS: ANION GAP 22 (5-19)
--- NOTE | 2018-03-18 21:44 | PDOC PROGRESS REPORT ---
Subjective Progress Note for:: 03/18/18 Subjective:: No chest pain. Remain on supplemental oxygen via nasal cannula. Tolerated peritoneal dialysis session. No reported fever. Reason For Visit: SEPSIS Physical Exam Vital Signs: Temp Pulse Resp BP Pulse Ox 98.4 F 70 15 102/51 L 100 03/18/18 19:25 03/18/18 20:20 03/18/18 19:25 03/18/18 20:20 03/18/18 19:25 Intake & Output 03/17/18 03/18/18 03/19/18 06:59 06:59 06:59 Intake Total 5821 1297 3287 Output Total 6450 5150 3900 Balance -754 -732 -923 Weight 76.8 kg 79.1 kg 78.6 kg Physical Exam: General appearance: PRESENT: no acute distress, chronically ill looking Head exam: PRESENT: atraumatic, normocephalic Eye exam: PRESENT: conjunctiva pink, EOMI, PERRLA. ABSENT: scleral icterus Respiratory exam: PRESENT: clear to auscultation milana, decreased breath sounds - at lung bases Cardiovascular exam: PRESENT: RRR, systolic murmur. ABSENT: diastolic murmur, rubs Murmur grade: 3 Vascular exam: ABSENT: pallor GI/Abdominal exam: PRESENT: normal bowel sounds, soft. Peritoneal dialysis site dressing is satisfactory and dry. ABSENT: mass, rebound, tenderness Extremities exam: ABSENT: pedal edema Musculoskeletal exam: PRESENT: deformity - related to multiple joint involvement with arthritis, tenderness - multiple sports tenderness Neurological exam: PRESENT: alert, awake - and appropriate in simple responses Psychiatric exam: PRESENT: appropriate affect. ABSENT: agitated, anxious, homicidal ideation, suicidal ideation Skin exam: PRESENT: dry, wound vac on right thigh wound, sacral regions of pressure ulcer Murmur grade: 3 Results Laboratory Results: 03/18/18 09:15 03/18/18 14:03 03/18/18 03/18/18 03/18/18 09:15 09:15 11:55 WBC 9.5 RBC 3.94 Hgb 12.5 Hct 38.7 MCV 98 H D MCH 31.7 MCHC 32.3 RDW 21.5 H Plt Count 164 Seg Neutrophils % Not Reportable Lymphocytes % Not Reportable Monocytes % Not Reportable Eosinophils % Not Reportable Basophils % Not Reportable Absolute Neutrophils Not Reportable Absolute Lymphocytes Not Reportable Absolute Monocytes Not Reportable Absolute Eosinophils Not Reportable Absolute Basophils Not Reportable Sodium Cancelled Cancelled Potassium Cancelled Cancelled Chloride Cancelled Cancelled Carbon Dioxide Cancelled Cancelled Anion Gap Cancelled Cancelled BUN Cancelled Cancelled Creatinine Cancelled Cancelled Est GFR ( Amer) Cancelled Cancelled Est GFR (Non-Af Amer) Cancelled Cancelled Glucose Cancelled Cancelled Calcium Cancelled Cancelled Total Bilirubin Cancelled Cancelled AST Cancelled Cancelled ALT Cancelled Cancelled Alkaline Phosphatase Cancelled Cancelled Total Protein Cancelled Cancelled Albumin Cancelled Cancelled 03/18/18 14:03 WBC RBC Hgb Hct MCV MCH MCHC RDW Plt Count Seg Neutrophils % Lymphocytes % Monocytes % Eosinophils % Basophils % Absolute Neutrophils Absolute Lymphocytes Absolute Monocytes Absolute Eosinophils Absolute Basophils Sodium 139.9 Potassium 4.1 Chloride 98 Carbon Dioxide 20 L Anion Gap 22 H BUN 43 H Creatinine 5.78 H Est GFR ( Amer) 8 L Est GFR (Non-Af Amer) 7 L Glucose 151 H Calcium 9.1 Total Bilirubin 0.9 AST 21 ALT 25 Alkaline Phosphatase 70 Total Protein 6.0 L Albumin 2.5 L Impressions: Chest X-Ray 03/07/18 16:04 IMPRESSION: HEART ENLARGED WITHOUT FAILURE. NO OTHER SIGNIFICANT RADIOGRAPHIC FINDING IN THE CHEST. Head CT 03/08/18 00:00 IMPRESSION: 1. No acute intracranial finding 2. Moderate cerebral atrophy and intracranial findings suggesting chronic microvascular disease. TECHNICAL DOCUMENTATION: Quality ID # 436: Final reports with documentation of one or more dose reduction techniques (e.g., Automated exposure control, adjustment of the mA and/or kV according to patient size, use of iterative reconstruction technique) 2010 [employer]- All Rights Reserved Knee X-Ray 03/09/18 00:00 IMPRESSION: Patellofemoral degenerative changes. Assessment & Plan - Diagnosis (1) Sepsis Qualifiers: Sepsis type: sepsis due to unspecified organism Qualified Code(s): A41.9 - Sepsis, unspecified organism Is this a current diagnosis for this admission?: Yes 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, on chronic dialysis Is this a current diagnosis for this admission?: Yes (10) Anemia due to chronic disease treated with erythropoietin Is this a current diagnosis for this admission?: Yes (11) Hypertension Qualifiers: Hypertension type: essential hypertension Qualified Code(s): I10 - Essential (primary) hypertension Is this a current diagnosis for this admission?: Yes (12) Clostridium difficile diarrhea Is this a current diagnosis for this admission?: Yes - Time Time Spent with patient: 25-34 minutes Medications reviewed and adjusted accordingly: Yes Anticipated discharge: Home with Homehealth, [facility] Within: Other - Inpatient Certification Based on my medical assessment, after consideration of the patient's comorbidities, presenting symptoms, or acuity I expect that the services needed warrant INPATIENT care.: Yes I certify that my determination is in accordance with my understanding of Medicare's requirements for reasonable and necessary INPATIENT services [42 CFR 412.3e].: Yes Medical Necessity: Need Close Monitoring Due to Risk of Patient Decompensation, Need For Continuous Telemetry Monitoring, Need for Pain Control, Risk of Complication if Not Cared For in Hospital Post Hospital Care: D/C Service Manager Documentation - Plan Summary Plan Summary: I had extensive discussion with family during my bedside evaluation. We will direct efforts at comfort care upon completion of her IV antibiotic therapy. she will be discharge home on PD with vancomycin therapy in view of her significant valvular disease and concern for endocarditis from E. faecalis infection.
[2018-03-18] MEDS: PHARMACY COMMUNICATION ORDER MC SCH (22:39)
[2018-03-19] MEDS: METRONIDAZOLE 250 MG TABLET PO SCH ×5 (00:34→23:50)
[2018-03-19] MEDS: HYDROMORPHONE HCL INJ/PF 2 MG/ML AMPULE IV PRN ×9 (03:57→23:23)
[2018-03-19] MEDS: PIPERACILLIN SODIUM/TAZOBACTAM 2.25 GM in NORMAL SALINE 50 ML IV SCH ×3 (05:06→22:24)
[2018-03-19] MEDS: SILVER SULFADIAZINE 1% CREAM 400 GM TP SCH ×4 (09:30→22:23)
[2018-03-19] MEDS: SEVELAMER HCL 800 MG TABLET PO SCH ×2 (12:23→19:07)
[2018-03-19] MEDS: METOPROLOL TARTRATE 25 MG TABLET PO SCH ×2 (12:32→22:23)
[2018-03-19] MEDS: FUROSEMIDE 80 MG TABLET PO SCH (12:32)
[2018-03-19] MEDS: ONDANSETRON 4 MG TAB.RAPDIS PO PRN (12:32)
[2018-03-19] MEDS: POTASSIUM CHLORIDE 20 MEQ/15 ML UDCUP PO SCH (12:32)
[2018-03-19] MEDS: MAGNESIUM OXIDE 400 MG TABLET PO SCH (12:33)
[2018-03-19] MEDS: FAMOTIDINE INJ/PF 20 MG/2 ML SDV IV SCH (12:34)
[2018-03-19] MEDS: LIDOCAINE 5% (700 MG) TRANSDERMAL ADH..PATCH TP SCH (12:40)
[2018-03-19] MEDS: MEGESTROL ACETATE SUSP 400 MG/10 ML UDCUP PO SCH (12:40)
[2018-03-19] MEDS: OLOPATADINE HCL 0.1% OPH SOLN 5 ML OU SCH ×2 (12:41→19:08)
[2018-03-19] MEDS: ALLOPURINOL 100 MG TABLET PO SCH (12:43)
--- NOTE | 2018-03-19 18:34 | PDOC PROGRESS REPORT ---
Subjective Progress Note for:: 03/19/18 Subjective:: Patient remain comfortable with satisfactory pain control presently. Less diarrhea. Repeat C.difficile toxin titer was reported negative. Remain on IV Zosyn coverage day #13. Reason For Visit: SEPSIS Physical Exam Vital Signs: Temp Pulse Resp BP Pulse Ox 98.5 F 69 20 112/61 98 03/19/18 15:22 03/19/18 15:22 03/19/18 15:22 03/19/18 15:22 03/19/18 15:22 Intake & Output 03/18/18 03/19/18 03/20/18 06:59 06:59 06:59 Intake Total 4418 5387 1000 Output Total 5150 6400 1500 Balance -732 1013 -500 Weight 79.1 kg 77.9 kg Physical Exam: General appearance: PRESENT: no acute distress, chronically ill looking Head exam: PRESENT: atraumatic, normocephalic Eye exam: PRESENT: conjunctiva pink, EOMI, PERRLA. ABSENT: scleral icterus Respiratory exam: PRESENT: clear to auscultation milana, decreased breath sounds - at lung bases Cardiovascular exam: PRESENT: RRR, systolic murmur. ABSENT: diastolic murmur, rubs Murmur grade: 3 Vascular exam: ABSENT: pallor GI/Abdominal exam: PRESENT: normal bowel sounds, soft. Peritoneal dialysis site dressing is satisfactory and dry. ABSENT: mass, rebound, tenderness Extremities exam: ABSENT: pedal edema Musculoskeletal exam: PRESENT: deformity - related to multiple joint involvement with arthritis, tenderness - multiple sports tenderness Neurological exam: PRESENT: alert, awake - and appropriate in simple responses Psychiatric exam: PRESENT: appropriate affect. ABSENT: agitated, anxious, homicidal ideation, suicidal ideation Skin exam: PRESENT: dry, wound vac on right thigh wound, sacral regions of pressure ulcer Murmur grade: 3 Results Laboratory Results: 03/18/18 09:15 03/18/18 14:03 Impressions: Chest X-Ray 03/07/18 16:04 IMPRESSION: HEART ENLARGED WITHOUT FAILURE. NO OTHER SIGNIFICANT RADIOGRAPHIC FINDING IN THE CHEST. Head CT 03/08/18 00:00 IMPRESSION: 1. No acute intracranial finding 2. Moderate cerebral atrophy and intracranial findings suggesting chronic microvascular disease. TECHNICAL DOCUMENTATION: Quality ID # 436: Final reports with documentation of one or more dose reduction techniques (e.g., Automated exposure control, adjustment of the mA and/or kV according to patient size, use of iterative reconstruction technique) 2010 [employer]- All Rights Reserved Knee X-Ray 03/09/18 00:00 IMPRESSION: Patellofemoral degenerative changes. Assessment & Plan - Diagnosis (1) Sepsis Qualifiers: Sepsis type: sepsis due to unspecified organism Qualified Code(s): A41.9 - Sepsis, unspecified organism Is this a current diagnosis for this admission?: Yes 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, on chronic dialysis Is this a current diagnosis for this admission?: Yes (10) Anemia due to chronic disease treated with erythropoietin Is this a current diagnosis for this admission?: Yes (11) Hypertension Qualifiers: Hypertension type: essential hypertension Qualified Code(s): I10 - Essential (primary) hypertension Is this a current diagnosis for this admission?: Yes (12) Clostridium difficile diarrhea Is this a current diagnosis for this admission?: Yes - Time Time Spent with patient: 25-34 minutes Medications reviewed and adjusted accordingly: Yes Anticipated discharge: Home with Homehealth, Hospice Within: Other - Inpatient Certification Based on my medical assessment, after consideration of the patient's comorbidities, presenting symptoms, or acuity I expect that the services needed warrant INPATIENT care.: Yes I certify that my determination is in accordance with my understanding of Medicare's requirements for reasonable and necessary INPATIENT services [42 CFR 412.3e].: Yes Medical Necessity: Need Close Monitoring Due to Risk of Patient Decompensation, Need For Continuous Telemetry Monitoring, Need for Pain Control, Risk of Complication if Not Cared For in Hospital Post Hospital Care: D/C Marketing Content Coordinator Documentation - Plan Summary Plan Summary: Continue current medication management with intent to discontinue PICC line and Zosyn after 03/20/18 dosing. Consult planner chief for possible home palliative / Hospice placement.
[2018-03-19] MEDS: PHARMACY COMMUNICATION ORDER MC SCH (22:23)
[2018-03-20] MEDS: HYDROMORPHONE HCL INJ/PF 2 MG/ML AMPULE IV PRN ×9 (04:14→23:33)
[2018-03-20] MEDS: PIPERACILLIN SODIUM/TAZOBACTAM 2.25 GM in NORMAL SALINE 50 ML IV SCH (05:14)
[2018-03-20] MEDS: METRONIDAZOLE 250 MG TABLET PO SCH ×4 (05:14→23:33)
[2018-03-20] MEDS: ONDANSETRON 4 MG TAB.RAPDIS PO PRN (08:52)
[2018-03-20] MEDS: SEVELAMER HCL 800 MG TABLET PO SCH ×3 (08:53→20:06)
[2018-03-20] MEDS: MAGNESIUM OXIDE 400 MG TABLET PO SCH (11:20)
[2018-03-20] MEDS: FUROSEMIDE 80 MG TABLET PO SCH (11:20)
[2018-03-20] MEDS: ALLOPURINOL 100 MG TABLET PO SCH (11:20)
[2018-03-20] MEDS: POTASSIUM CHLORIDE 20 MEQ/15 ML UDCUP PO SCH (11:21)
[2018-03-20] MEDS: LIDOCAINE 5% (700 MG) TRANSDERMAL ADH..PATCH TP SCH (11:21)
[2018-03-20] MEDS: OLOPATADINE HCL 0.1% OPH SOLN 5 ML OU SCH ×2 (11:22→20:10)
[2018-03-20] MEDS: MEGESTROL ACETATE SUSP 400 MG/10 ML UDCUP PO SCH (11:22)
[2018-03-20] MEDS: SILVER SULFADIAZINE 1% CREAM 400 GM TP SCH ×4 (11:26→21:44)
[2018-03-20] MEDS: FAMOTIDINE INJ/PF 20 MG/2 ML SDV IV SCH (11:26)
[2018-03-20] MEDS: FENTANYL 100 MCG/HR PATCH.TD72 TD SCH (11:46)
[2018-03-20] MEDS: METOPROLOL TARTRATE 25 MG TABLET PO SCH ×2 (11:46→21:49)
[2018-03-20] MEDS: VANCOMYCIN HCL INJ 1000 MG VIAL IPER SCH (11:47)
--- NOTE | 2018-03-20 12:49 | PDOC PROGRESS REPORT ---
Subjective Subjective:: Patient is currently being covered by Dr. Parra and me while Dr. Cooper is gone. Patient was not very reactive this morning. She breifly opened her eyes but then closed them. She would not verbally answer questions, but would shake her head. She denied chest pain or SOB. She does still have loose bowel movements. Reason For Visit: SEPSIS Physical Exam Vital Signs: Temp Pulse Resp BP Pulse Ox 97.8 F 69 16 117/63 100 03/20/18 12:00 03/20/18 12:00 03/20/18 12:00 03/20/18 12:00 03/20/18 08:00 Intake & Output 03/19/18 03/20/18 03/21/18 06:59 06:59 06:59 Intake Total 5387 4390 Output Total 6400 5100 Balance -1013 -710 Weight 77.9 kg 78.3 kg General appearance: PRESENT: no acute distress, disheveled. ABSENT: cooperative Mouth exam: PRESENT: neck supple Neck exam: ABSENT: JVD, tracheal deviation Respiratory exam: PRESENT: clear to auscultation milana. ABSENT: accessory muscle use, crackles, rales, rhonchi, wheezes Cardiovascular exam: PRESENT: RRR, +S1, +S2 Extremities exam: ABSENT: pedal edema, +1 edema, +2 edema Musculoskeletal exam: PRESENT: normal inspection. ABSENT: tenderness Neurological exam: ABSENT: alert, awake Skin exam: PRESENT: dry, intact, warm. ABSENT: cyanosis Results Laboratory Results: 03/18/18 09:15 03/18/18 14:03 Impressions: Chest X-Ray 03/07/18 16:04 IMPRESSION: HEART ENLARGED WITHOUT FAILURE. NO OTHER SIGNIFICANT RADIOGRAPHIC FINDING IN THE CHEST. Head CT 03/08/18 00:00 IMPRESSION: 1. No acute intracranial finding 2. Moderate cerebral atrophy and intracranial findings suggesting chronic microvascular disease. TECHNICAL DOCUMENTATION: Quality ID # 436: Final reports with documentation of one or more dose reduction techniques (e.g., Automated exposure control, adjustment of the mA and/or kV according to patient size, use of iterative reconstruction technique) 2010 [employer]- All Rights Reserved Knee X-Ray 03/09/18 00:00 IMPRESSION: Patellofemoral degenerative changes. Assessment & Plan - Diagnosis (1) Calciphylaxis Is this a current diagnosis for this admission?: Yes Plan: received the last dose of sodium thiosulfate on 03/14/18 (2) End stage renal disease Is this a current diagnosis for this admission?: Yes Plan: currently on PD, no complications as of right now. Continue with current orders (3) Anemia due to chronic disease treated with erythropoietin Is this a current diagnosis for this admission?: Yes Plan: last was stable in the 12s (4) Clostridium difficile diarrhea Is this a current diagnosis for this admission?: Yes Plan: on flagyl
--- NOTE | 2018-03-20 19:05 | PDOC PROGRESS REPORT ---
Subjective Progress Note for:: 03/20/18 Subjective:: Patient remain comfortable with satisfactory pain control presently. Family at bedside and assisted with feeding. Still have some loose stool but less frequent. Repeat stool C. difficile toxin titer was negative. There were episodes of low grade fever earlier today with need for Tylenol administration. She is on last course IV Zosyn coverage day #14. We will consider change of her breakthrough pain medication management to oral route. Reason For Visit: SEPSIS Physical Exam Vital Signs: Temp Pulse Resp BP Pulse Ox 98.4 F 69 15 125/63 100 03/20/18 15:41 03/20/18 15:41 03/20/18 15:41 03/20/18 15:41 03/20/18 15:41 Intake & Output 03/19/18 03/20/18 03/21/18 06:59 06:59 06:59 Intake Total 5387 4390 2457 Output Total 6400 5100 2400 Balance -1013 -710 57 Weight 77.9 kg 78.3 kg Physical Exam: General appearance: PRESENT: no acute distress, chronically ill looking Head exam: PRESENT: atraumatic, normocephalic Eye exam: PRESENT: conjunctiva pink, EOMI, PERRLA. ABSENT: scleral icterus Respiratory exam: PRESENT: clear to auscultation milana, decreased breath sounds - at lung bases Cardiovascular exam: PRESENT: RRR, systolic murmur. ABSENT: diastolic murmur, rubs Murmur grade: 3 Vascular exam: ABSENT: pallor GI/Abdominal exam: PRESENT: normal bowel sounds, soft. Peritoneal dialysis site dressing is satisfactory and dry. ABSENT: mass, rebound, tenderness Extremities exam: ABSENT: pedal edema Musculoskeletal exam: PRESENT: deformity - related to multiple joint involvement with arthritis, tenderness - multiple sports tenderness Neurological exam: PRESENT: alert, awake - and appropriate in simple responses Psychiatric exam: PRESENT: appropriate affect. ABSENT: agitated, anxious, homicidal ideation, suicidal ideation Skin exam: PRESENT: dry, wound vac on right thigh wound, sacral regions of pressure ulcer Murmur grade: 3 Results Laboratory Results: 03/18/18 09:15 03/18/18 14:03 Impressions: Chest X-Ray 03/07/18 16:04 IMPRESSION: HEART ENLARGED WITHOUT FAILURE. NO OTHER SIGNIFICANT RADIOGRAPHIC FINDING IN THE CHEST. Head CT 03/08/18 00:00 IMPRESSION: 1. No acute intracranial finding 2. Moderate cerebral atrophy and intracranial findings suggesting chronic microvascular disease. TECHNICAL DOCUMENTATION: Quality ID # 436: Final reports with documentation of one or more dose reduction techniques (e.g., Automated exposure control, adjustment of the mA and/or kV according to patient size, use of iterative reconstruction technique) 2010 [employer]- All Rights Reserved Knee X-Ray 03/09/18 00:00 IMPRESSION: Patellofemoral degenerative changes. Assessment & Plan - Diagnosis (1) Sepsis Qualifiers: Sepsis type: sepsis due to unspecified organism Qualified Code(s): A41.9 - Sepsis, unspecified organism Is this a current diagnosis for this admission?: Yes 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, on chronic dialysis Is this a current diagnosis for this admission?: Yes (10) Anemia due to chronic disease treated with erythropoietin Is this a current diagnosis for this admission?: Yes (11) Hypertension Qualifiers: Hypertension type: essential hypertension Qualified Code(s): I10 - Essential (primary) hypertension Is this a current diagnosis for this admission?: Yes (12) Clostridium difficile diarrhea Is this a current diagnosis for this admission?: Yes - Time Time Spent with patient: 25-34 minutes Medications reviewed and adjusted accordingly: Yes Anticipated discharge: Home with Homehealth, Hospice Within: Other - Inpatient Certification Based on my medical assessment, after consideration of the patient's comorbidities, presenting symptoms, or acuity I expect that the services needed warrant INPATIENT care.: Yes I certify that my determination is in accordance with my understanding of Medicare's requirements for reasonable and necessary INPATIENT services [42 CFR 412.3e].: Yes Medical Necessity: Need Close Monitoring Due to Risk of Patient Decompensation, Need For IV Fluids, Need For Continuous Telemetry Monitoring, Need for Pain Control, Need for IV Antibiotics, Risk of Complication if Not Cared For in Hospital Post Hospital Care: D/C Slot Floorman Documentation - Plan Summary Plan Summary: strategic planner input appreciated. [facility] will start working with family regarding placement and eventual discharge home on their service. She will receive last dose of IV Zosyn tonight and have PICC line removed tomorrow.
[2018-03-20] MEDS ORDERED: MORPHINE SULFATE 10 MG/5 ML ORAL SOLUTION UDCUP PO PRN (19:11)
[2018-03-20] MEDS: PHARMACY COMMUNICATION ORDER MC SCH (21:43)
[2018-03-21] MEDS: METRONIDAZOLE 250 MG TABLET PO SCH ×4 (05:49→23:28)
[2018-03-21] MEDS: HYDROMORPHONE HCL INJ/PF 2 MG/ML AMPULE IV PRN ×6 (07:43→18:15)
[2018-03-21] MEDS: SILVER SULFADIAZINE 1% CREAM 400 GM TP SCH ×4 (10:00→21:40)
[2018-03-21] MEDS: LIDOCAINE 5% (700 MG) TRANSDERMAL ADH..PATCH TP SCH (10:02)
[2018-03-21] MEDS: POTASSIUM CHLORIDE 20 MEQ/15 ML UDCUP PO SCH (10:03)
[2018-03-21] MEDS: FUROSEMIDE 80 MG TABLET PO SCH (10:03)
[2018-03-21] MEDS: FAMOTIDINE INJ/PF 20 MG/2 ML SDV IV SCH (10:04)
[2018-03-21] MEDS: ALLOPURINOL 100 MG TABLET PO SCH (10:04)
[2018-03-21] MEDS: SEVELAMER HCL 800 MG TABLET PO SCH ×3 (10:04→17:03)
[2018-03-21] MEDS: MAGNESIUM OXIDE 400 MG TABLET PO SCH (10:04)
[2018-03-21] MEDS: MEGESTROL ACETATE SUSP 400 MG/10 ML UDCUP PO SCH (10:05)
[2018-03-21] MEDS: METOPROLOL TARTRATE 25 MG TABLET PO SCH ×2 (10:08→21:42)
[2018-03-21] MEDS: OLOPATADINE HCL 0.1% OPH SOLN 5 ML OU SCH ×2 (10:08→19:15)
--- NOTE | 2018-03-21 16:28 | PDOC PROGRESS REPORT ---
Subjective Progress Note for:: 03/21/18 Subjective:: No chest pain or difficulty with breathing. No reported fever. No nausea or vomiting. PD session ongoing. PICC line discontinued and tip will be cultured. Family declined use of Morphine due to fear of addition! Currently on IV Dilaudid as earlier scheduled. Reason For Visit: SEPSIS Physical Exam Vital Signs: Temp Pulse Resp BP Pulse Ox 98.1 F 70 16 117/62 100 03/21/18 11:46 03/21/18 11:46 03/21/18 11:46 03/21/18 11:46 03/21/18 11:46 Intake & Output 03/20/18 03/21/18 03/22/18 06:59 06:59 06:59 Intake Total 4390 4607 100 Output Total 5100 5200 0 Balance -710 -593 100 Weight 78.3 kg 78.4 kg Physical Exam: General appearance: PRESENT: no acute distress, chronically ill looking Head exam: PRESENT: atraumatic, normocephalic Eye exam: PRESENT: conjunctiva pink, EOMI, PERRLA. ABSENT: scleral icterus Respiratory exam: PRESENT: clear to auscultation milana, decreased breath sounds - at lung bases Cardiovascular exam: PRESENT: RRR, systolic murmur. ABSENT: diastolic murmur, rubs Murmur grade: 3 Vascular exam: ABSENT: pallor GI/Abdominal exam: PRESENT: normal bowel sounds, soft. Peritoneal dialysis site dressing is satisfactory and dry. ABSENT: mass, rebound, tenderness Extremities exam: ABSENT: pedal edema Musculoskeletal exam: PRESENT: deformity - related to multiple joint involvement with arthritis, tenderness - multiple sports tenderness Neurological exam: PRESENT: alert, awake - and appropriate in simple responses Psychiatric exam: PRESENT: appropriate affect. ABSENT: agitated, anxious, homicidal ideation, suicidal ideation Skin exam: PRESENT: dry, wound vac on right thigh wound, sacral regions of pressure ulcer Murmur grade: 3 Results Laboratory Results: 03/18/18 09:15 03/18/18 14:03 Impressions: Chest X-Ray 03/07/18 16:04 IMPRESSION: HEART ENLARGED WITHOUT FAILURE. NO OTHER SIGNIFICANT RADIOGRAPHIC FINDING IN THE CHEST. Head CT 03/08/18 00:00 IMPRESSION: 1. No acute intracranial finding 2. Moderate cerebral atrophy and intracranial findings suggesting chronic microvascular disease. TECHNICAL DOCUMENTATION: Quality ID # 436: Final reports with documentation of one or more dose reduction techniques (e.g., Automated exposure control, adjustment of the mA and/or kV according to patient size, use of iterative reconstruction technique) 2010 [employer] All Rights Reserved Knee X-Ray 03/09/18 00:00 IMPRESSION: Patellofemoral degenerative changes. Assessment & Plan - Diagnosis (1) Sepsis Qualifiers: Sepsis type: sepsis due to unspecified organism Qualified Code(s): A41.9 - Sepsis, unspecified organism Is this a current diagnosis for this admission?: Yes 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, on chronic dialysis Is this a current diagnosis for this admission?: Yes (10) Anemia due to chronic disease treated with erythropoietin Is this a current diagnosis for this admission?: Yes (11) Hypertension Qualifiers: Hypertension type: essential hypertension Qualified Code(s): I10 - Essential (primary) hypertension Is this a current diagnosis for this admission?: Yes (12) Clostridium difficile diarrhea Is this a current diagnosis for this admission?: Yes - Time Time Spent with patient: 25-34 minutes Medications reviewed and adjusted accordingly: Yes Anticipated discharge: Home with Homehealth, Hospice Within: Other - Inpatient Certification Based on my medical assessment, after consideration of the patient's comorbidities, presenting symptoms, or acuity I expect that the services needed warrant INPATIENT care.: Yes I certify that my determination is in accordance with my understanding of Medicare's requirements for reasonable and necessary INPATIENT services [42 CFR 412.3e].: Yes Medical Necessity: Need Close Monitoring Due to Risk of Patient Decompensation, Need For Continuous Telemetry Monitoring, Need for Pain Control, Risk of Complication if Not Cared For in Hospital Post Hospital Care: D/C Street Light Servicer Helper Documentation - Plan Summary Plan Summary: Continue current medication management. We will continue discussion with family regarding expectations and care plan post discharge.
[2018-03-21] MEDS: PHARMACY COMMUNICATION ORDER MC SCH (21:40)
[2018-03-22] MEDS: METRONIDAZOLE 250 MG TABLET PO SCH ×4 (05:17→23:31)
[2018-03-22] MEDS: SEVELAMER HCL 800 MG TABLET PO SCH ×3 (07:48→17:20)
[2018-03-22] MEDS: HYDROMORPHONE HCL INJ/PF 2 MG/ML AMPULE IV PRN ×5 (08:00→18:54)
[2018-03-22] MEDS: METOPROLOL TARTRATE 25 MG TABLET PO SCH ×2 (09:14→22:42)
[2018-03-22] MEDS: FUROSEMIDE 80 MG TABLET PO SCH (09:14)
[2018-03-22] MEDS: LIDOCAINE 5% (700 MG) TRANSDERMAL ADH..PATCH TP SCH (09:14)
[2018-03-22] MEDS: MAGNESIUM OXIDE 400 MG TABLET PO SCH (09:15)
[2018-03-22] MEDS: MEGESTROL ACETATE SUSP 400 MG/10 ML UDCUP PO SCH (09:16)
[2018-03-22] MEDS: ALLOPURINOL 100 MG TABLET PO SCH (09:16)
[2018-03-22] MEDS: OLOPATADINE HCL 0.1% OPH SOLN 5 ML OU SCH ×2 (09:16→17:21)
[2018-03-22] MEDS: POTASSIUM CHLORIDE 20 MEQ/15 ML UDCUP PO SCH (09:17)
[2018-03-22] MEDS: SILVER SULFADIAZINE 1% CREAM 400 GM TP SCH ×4 (09:17→22:39)
[2018-03-22] MEDS: FAMOTIDINE INJ/PF 20 MG/2 ML SDV IV SCH (09:17)
--- NOTE | 2018-03-22 09:33 | PDOC PROGRESS REPORT ---
Subjective Progress Note for:: 03/22/18 Subjective:: Patient is currently doing same No fever overnight Wound is pretty much the same Continues to require pain medications Continues on the PD dialysis Reason For Visit: SEPSIS Physical Exam Vital Signs: Temp Pulse Resp BP Pulse Ox 97.7 F 70 16 129/67 H 100 03/22/18 07:55 03/22/18 07:55 03/22/18 07:55 03/22/18 07:55 03/22/18 07:55 Intake & Output 03/21/18 03/22/18 03/23/18 06:59 06:59 06:59 Intake Total 4607 5400 Output Total 5200 6600 Balance -593 -1200 Weight 78.4 kg 71.8 kg General appearance: PRESENT: no acute distress Head exam: PRESENT: normocephalic Eye exam: PRESENT: PERRLA Mouth exam: PRESENT: neck supple Respiratory exam: PRESENT: clear to auscultation milana Cardiovascular exam: PRESENT: +S1, +S2 Murmur grade: 3 GI/Abdominal exam: PRESENT: normal bowel sounds, soft Additonal comments: PD catheter is intact Additional comments: Bilateral upper thigh wound is present the dressing is intact Neurological exam: PRESENT: alert, awake Skin exam: PRESENT: dry Results Laboratory Results: 03/18/18 09:15 03/18/18 14:03 Impressions: Chest X-Ray 03/07/18 16:04 IMPRESSION: HEART ENLARGED WITHOUT FAILURE. NO OTHER SIGNIFICANT RADIOGRAPHIC FINDING IN THE CHEST. Head CT 03/08/18 00:00 IMPRESSION: 1. No acute intracranial finding 2. Moderate cerebral atrophy and intracranial findings suggesting chronic microvascular disease. TECHNICAL DOCUMENTATION: Quality ID # 436: Final reports with documentation of one or more dose reduction techniques (e.g., Automated exposure control, adjustment of the mA and/or kV according to patient size, use of iterative reconstruction technique) 2010 [employer]- All Rights Reserved Knee X-Ray 03/09/18 00:00 IMPRESSION: Patellofemoral degenerative changes. Assessment & Plan - Diagnosis (1) Rectal bleeding Is this a current diagnosis for this admission?: Yes Plan: Currently all resolved (2) End stage renal disease Is this a current diagnosis for this admission?: Yes Plan: on pd dialysis (3) Hypertension Qualifiers: Hypertension type: essential hypertension Qualified Code(s): I10 - Essential (primary) hypertension Is this a current diagnosis for this admission?: Yes Plan: Clear all stable (4) Congestive heart failure Qualifiers: Heart failure type: systolic Is this a current diagnosis for this admission?: Yes (5) Coronary artery disease Is this a current diagnosis for this admission?: Yes (6) Calciphylaxis Is this a current diagnosis for this admission?: Yes Plan: Also follow-up with the surgery (7) Open thigh wound Qualifiers: Laterality: right Is this a current diagnosis for this admission?: Yes Plan: Follow with the surgery (8) Peritonitis Is this a current diagnosis for this admission?: Yes (9) Sepsis Qualifiers: Sepsis type: sepsis due to unspecified organism Qualified Code(s): A41.9 - Sepsis, unspecified organism Is this a current diagnosis for this admission?: Yes (10) Current use of termite treater helper anticoagulation Is this a current diagnosis for this admission?: Yes - Time Time Spent with patient: 15-24 minutes Medications reviewed and adjusted accordingly: Yes Anticipated discharge: Other Within: Other - Inpatient Certification Medical Necessity: Need Close Monitoring Due to Risk of Patient Decompensation Post Hospital Care: D/C Lead Dental Assistant Documentation - Plan Summary Plan Summary: Continues to current medications As per discussed with the nursing staff no concern
[2018-03-22] MEDS: ONDANSETRON 4 MG TAB.RAPDIS PO PRN (18:54)
[2018-03-22] MEDS: PHARMACY COMMUNICATION ORDER MC SCH (22:40)
[2018-03-23] MEDS: HYDROMORPHONE HCL INJ/PF 2 MG/ML AMPULE IV PRN ×7 (03:46→17:49)
[2018-03-23] MEDS: METRONIDAZOLE 250 MG TABLET PO SCH ×3 (05:09→16:59)
--- NOTE | 2018-03-23 07:48 | PDOC PROGRESS REPORT ---
Subjective Progress Note for:: 03/23/18 Subjective:: Patient is currently doing same No fever overnight Wound is pretty much the same Continues to require pain medications Continues on the PD dialysis Reason For Visit: SEPSIS Physical Exam Vital Signs: Temp Pulse Resp BP Pulse Ox 98.0 F 70 16 114/57 L 100 03/23/18 04:42 03/23/18 04:42 03/22/18 20:08 03/23/18 04:26 03/23/18 04:42 Intake & Output 03/21/18 03/22/18 03/23/18 06:59 06:59 06:59 Intake Total 4607 5400 3200 Output Total 5200 6600 4500 Balance -593 1200 -1300 Weight 78.4 kg 71.8 kg 76.2 kg General appearance: PRESENT: no acute distress Eye exam: PRESENT: PERRLA Mouth exam: PRESENT: neck supple Respiratory exam: PRESENT: clear to auscultation milana Cardiovascular exam: PRESENT: +S1, +S2 Murmur grade: 3 GI/Abdominal exam: PRESENT: normal bowel sounds, soft Extremities exam: ABSENT: pedal edema Neurological exam: PRESENT: alert, awake Results Laboratory Results: 03/18/18 09:15 03/18/18 14:03 Impressions: Chest X-Ray 03/07/18 16:04 IMPRESSION: HEART ENLARGED WITHOUT FAILURE. NO OTHER SIGNIFICANT RADIOGRAPHIC FINDING IN THE CHEST. Head CT 03/08/18 00:00 IMPRESSION: 1. No acute intracranial finding 2. Moderate cerebral atrophy and intracranial findings suggesting chronic microvascular disease. TECHNICAL DOCUMENTATION: Quality ID # 436: Final reports with documentation of one or more dose reduction techniques (e.g., Automated exposure control, adjustment of the mA and/or kV according to patient size, use of iterative reconstruction technique) 2010 [employer]- All Rights Reserved Knee X-Ray 03/09/18 00:00 IMPRESSION: Patellofemoral degenerative changes. Assessment & Plan - Diagnosis (1) Rectal bleeding Is this a current diagnosis for this admission?: Yes Plan: Currently all resolved (2) End stage renal disease Is this a current diagnosis for this admission?: Yes Plan: on pd dialysis (3) Hypertension Qualifiers: Hypertension type: essential hypertension Qualified Code(s): I10 - Essential (primary) hypertension Is this a current diagnosis for this admission?: Yes Plan: Clear all stable (4) Congestive heart failure Qualifiers: Heart failure type: systolic Is this a current diagnosis for this admission?: Yes (5) Coronary artery disease Is this a current diagnosis for this admission?: Yes (6) Calciphylaxis Is this a current diagnosis for this admission?: Yes Plan: Also follow-up with the surgery (7) Open thigh wound Qualifiers: Laterality: right Is this a current diagnosis for this admission?: Yes Plan: Follow with the surgery (8) Peritonitis Is this a current diagnosis for this admission?: Yes (9) Sepsis Qualifiers: Sepsis type: sepsis due to unspecified organism Qualified Code(s): A41.9 - Sepsis, unspecified organism Is this a current diagnosis for this admission?: Yes (10) Current use of director of managed services anticoagulation Is this a current diagnosis for this admission?: Yes Plan: His hypercoagulability currently all stable - Time Time Spent with patient: 15-24 minutes Medications reviewed and adjusted accordingly: Yes Anticipated discharge: Other Within: Other - Inpatient Certification Medical Necessity: Need Close Monitoring Due to Risk of Patient Decompensation Post Hospital Care: D/C Waste And Batting Waste Chopper Documentation - Plan Summary Plan Summary: Continue current medication
[2018-03-23] MEDS: SEVELAMER HCL 800 MG TABLET PO SCH ×3 (10:01→17:00)
[2018-03-23] MEDS: FENTANYL 100 MCG/HR PATCH.TD72 TD SCH (10:02)
[2018-03-23] MEDS: ALLOPURINOL 100 MG TABLET PO SCH (10:07)
[2018-03-23] MEDS: FAMOTIDINE INJ/PF 20 MG/2 ML SDV IV SCH (10:08)
[2018-03-23] MEDS: FUROSEMIDE 80 MG TABLET PO SCH (10:09)
[2018-03-23] MEDS: MAGNESIUM OXIDE 400 MG TABLET PO SCH (10:10)
[2018-03-23] MEDS: METOPROLOL TARTRATE 25 MG TABLET PO SCH ×2 (10:10→22:58)
[2018-03-23] MEDS: POTASSIUM CHLORIDE 20 MEQ/15 ML UDCUP PO SCH (10:11)
[2018-03-23] MEDS: OLOPATADINE HCL 0.1% OPH SOLN 5 ML OU SCH ×2 (10:13→17:00)
[2018-03-23] MEDS: LIDOCAINE 5% (700 MG) TRANSDERMAL ADH..PATCH TP SCH (10:14)
[2018-03-23] MEDS: EPOETIN ALFA INJ 40000 UNIT/1 ML (RENAL) SUBCUT SCH (10:16)
[2018-03-23] MEDS: MEGESTROL ACETATE SUSP 400 MG/10 ML UDCUP PO SCH (10:16)
[2018-03-23] MEDS: SILVER SULFADIAZINE 1% CREAM 400 GM TP SCH ×4 (10:17→22:58)
[2018-03-23] MEDS: VANCOMYCIN HCL INJ 1000 MG VIAL IPER SCH (14:30)
[2018-03-23] MEDS: PHARMACY COMMUNICATION ORDER MC SCH (21:20)
[2018-03-24] MEDS: SEVELAMER HCL 800 MG TABLET PO SCH ×3 (10:22→18:27)
[2018-03-24] MEDS: POTASSIUM CHLORIDE 20 MEQ/15 ML UDCUP PO SCH (10:22)
[2018-03-24] MEDS: MEGESTROL ACETATE SUSP 400 MG/10 ML UDCUP PO SCH (10:22)
[2018-03-24] MEDS: MAGNESIUM OXIDE 400 MG TABLET PO SCH (10:23)
[2018-03-24] MEDS: SILVER SULFADIAZINE 1% CREAM 400 GM TP SCH ×4 (10:23→22:18)
[2018-03-24] MEDS: ALLOPURINOL 100 MG TABLET PO SCH (10:23)
[2018-03-24] MEDS: FAMOTIDINE INJ/PF 20 MG/2 ML SDV IV SCH (10:23)
[2018-03-24] MEDS: LIDOCAINE 5% (700 MG) TRANSDERMAL ADH..PATCH TP SCH (10:23)
[2018-03-24] MEDS: FUROSEMIDE 80 MG TABLET PO SCH (10:23)
[2018-03-24] MEDS: METOPROLOL TARTRATE 25 MG TABLET PO SCH ×2 (10:25→22:15)
[2018-03-24] MEDS: OLOPATADINE HCL 0.1% OPH SOLN 5 ML OU SCH ×2 (10:26→17:28)
[2018-03-24] MEDS: HYDROMORPHONE HCL INJ/PF 2 MG/ML AMPULE IV PRN ×2 (11:07→15:04)
--- NOTE | 2018-03-24 17:07 | PDOC PROGRESS REPORT ---
Subjective Progress Note for:: 03/24/18 Subjective:: No new issues. PICC catheter tip culture no growth x 2 days. No reported ever. No chest pain or difficulty with breathing. Reported increase return form PD sessions so far today. PO intake and appetite remain a challenge. Reason For Visit: SEPSIS Physical Exam Vital Signs: Temp Pulse Resp BP Pulse Ox 98.7 F 70 16 130/76 H 100 03/24/18 15:42 03/24/18 15:42 03/24/18 15:42 03/24/18 15:42 03/24/18 15:42 Intake & Output 03/23/18 03/24/18 03/25/18 06:59 06:59 06:59 Intake Total 4100 2737 2050 Output Total 4500 2300 3100 Balance -400 437 -1050 Weight 76 kg 70 kg 76.4 kg Physical Exam: General appearance: PRESENT: no acute distress, chronically ill looking Head exam: PRESENT: atraumatic, normocephalic Eye exam: PRESENT: conjunctiva pink ABSENT: scleral icterus Respiratory exam: PRESENT: clear to auscultation milana, decreased breath sounds - at lung bases Cardiovascular exam: PRESENT: RRR, systolic murmur. ABSENT: diastolic murmur, rubs Murmur grade: 3 Vascular exam: ABSENT: pallor GI/Abdominal exam: PRESENT: normal bowel sounds, soft. Peritoneal dialysis site dressing is satisfactory and dry. ABSENT: mass, rebound, tenderness Extremities exam: ABSENT: pedal edema Musculoskeletal exam: PRESENT: deformity - related to multiple joint involvement with arthritis, tenderness - multiple sports tenderness Neurological exam: PRESENT: alert, awake - and appropriate in simple responses Psychiatric exam: PRESENT: appropriate affect. ABSENT: agitated, anxious, homicidal ideation, suicidal ideation Skin exam: PRESENT: dry, wound vac on right thigh wound, sacral regions of pressure ulcer Murmur grade: 3 Results Laboratory Results: 03/18/18 09:15 03/18/18 14:03 Impressions: Chest X-Ray 03/07/18 16:04 IMPRESSION: HEART ENLARGED WITHOUT FAILURE. NO OTHER SIGNIFICANT RADIOGRAPHIC FINDING IN THE CHEST. Head CT 03/08/18 00:00 IMPRESSION: 1. No acute intracranial finding 2. Moderate cerebral atrophy and intracranial findings suggesting chronic microvascular disease. TECHNICAL DOCUMENTATION: Quality ID # 436: Final reports with documentation of one or more dose reduction techniques (e.g., Automated exposure control, adjustment of the mA and/or kV according to patient size, use of iterative reconstruction technique) 2010 [employer]- All Rights Reserved Knee X-Ray 03/09/18 00:00 IMPRESSION: Patellofemoral degenerative changes. Assessment & Plan - Diagnosis (1) Sepsis Qualifiers: Sepsis type: sepsis due to unspecified organism Qualified Code(s): A41.9 - Sepsis, unspecified organism Is this a current diagnosis for this admission?: Yes 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, on chronic dialysis Is this a current diagnosis for this admission?: Yes (10) Anemia due to chronic disease treated with erythropoietin Is this a current diagnosis for this admission?: Yes (11) Hypertension Qualifiers: Hypertension type: essential hypertension Qualified Code(s): I10 - Essential (primary) hypertension Is this a current diagnosis for this admission?: Yes (12) Clostridium difficile diarrhea Is this a current diagnosis for this admission?: Yes - Time Time Spent with patient: 25-34 minutes Medications reviewed and adjusted accordingly: Yes Anticipated discharge: Home with Homehealth, Hospice Within: within 72 hours - Inpatient Certification Based on my medical assessment, after consideration of the patient's comorbidities, presenting symptoms, or acuity I expect that the services needed warrant INPATIENT care.: Yes I certify that my determination is in accordance with my understanding of Medicare's requirements for reasonable and necessary INPATIENT services [42 CFR 412.3e].: Yes Medical Necessity: Need Close Monitoring Due to Risk of Patient Decompensation, Need For Continuous Telemetry Monitoring, Risk of Complication if Not Cared For in Hospital Post Hospital Care: D/C Campus Dean Documentation - Plan Summary Plan Summary: Continue current medication management. Follow up with [employer] task force planners regarding disposition plan and home needs.
[2018-03-24] MEDS: PHARMACY COMMUNICATION ORDER MC SCH (22:17)
[2018-03-25] MEDS: HYDROMORPHONE HCL INJ/PF 2 MG/ML AMPULE IV PRN ×4 (03:42→18:14)
[2018-03-25] MEDS: SEVELAMER HCL 800 MG TABLET PO SCH ×3 (09:38→17:33)
[2018-03-25] MEDS: POTASSIUM CHLORIDE 20 MEQ/15 ML UDCUP PO SCH (09:39)
[2018-03-25] MEDS: FAMOTIDINE INJ/PF 20 MG/2 ML SDV IV SCH (09:41)
[2018-03-25] MEDS: MEGESTROL ACETATE SUSP 400 MG/10 ML UDCUP PO SCH (09:41)
[2018-03-25] MEDS: ALLOPURINOL 100 MG TABLET PO SCH (09:42)
[2018-03-25] MEDS: MAGNESIUM OXIDE 400 MG TABLET PO SCH (09:42)
[2018-03-25] MEDS: FUROSEMIDE 80 MG TABLET PO SCH (09:42)
[2018-03-25] MEDS: SILVER SULFADIAZINE 1% CREAM 400 GM TP SCH ×4 (09:43→22:10)
[2018-03-25] MEDS: OLOPATADINE HCL 0.1% OPH SOLN 5 ML OU SCH ×2 (09:43→18:14)
[2018-03-25] MEDS: LIDOCAINE 5% (700 MG) TRANSDERMAL ADH..PATCH TP SCH (09:44)
[2018-03-25] MEDS: METOPROLOL TARTRATE 25 MG TABLET PO SCH ×2 (09:54→22:05)
[2018-03-25 18:24] LABS: ANION GAP 19 (5-19); BLOOD UREA NITROGEN 49 mg/dL (7-20); CALCIUM 9.7 mg/dL (8.4-10.2); CARBON DIOXIDE 19 mmol/L (22-30); CHLORIDE 102 mmol/L (98-107); GLUCOSE 120 mg/dL (75-110); POTASSIUM 5.3 mmol/L (3.6-5.0); SODIUM 139.7 mmol/L (137-145)
--- NOTE | 2018-03-25 18:43 | PDOC PROGRESS REPORT ---
Subjective Progress Note for:: 03/25/18 Subjective:: No reported fever. No chest pain or difficulty with breathing. There was incidental episode of short run of V. tachy earlier today. Family is agreeable to palliative care upon discharge. They continue to denied DNR status or hospice placement. She remain on PD sessions. PO intake and appetite remain a challenge. Reason For Visit: SEPSIS Physical Exam Vital Signs: Temp Pulse Resp BP Pulse Ox 97.5 F 70 15 119/51 L 100 03/25/18 04:56 03/25/18 07:00 03/25/18 04:56 03/25/18 04:56 03/25/18 04:56 Intake & Output 03/24/18 03/25/18 03/26/18 06:59 06:59 06:59 Intake Total 2737 5150 Output Total 2300 6600 Balance 437 -1450 Weight 70 kg 75.4 kg Physical Exam: General appearance: PRESENT: no acute distress, chronically ill looking Head exam: PRESENT: atraumatic, normocephalic Eye exam: PRESENT: conjunctiva pink ABSENT: scleral icterus Respiratory exam: PRESENT: clear to auscultation milana, decreased breath sounds - at lung bases Cardiovascular exam: PRESENT: RRR, systolic murmur. ABSENT: diastolic murmur, rubs Murmur grade: 3 Vascular exam: ABSENT: pallor GI/Abdominal exam: PRESENT: normal bowel sounds, soft. Peritoneal dialysis site dressing is satisfactory and dry. ABSENT: mass, rebound, tenderness Extremities exam: ABSENT: pedal edema Musculoskeletal exam: PRESENT: deformity - related to multiple joint involvement with arthritis, tenderness - multiple sports tenderness Neurological exam: PRESENT: alert, awake - and appropriate in simple responses Psychiatric exam: PRESENT: appropriate affect. ABSENT: agitated, anxious, homicidal ideation, suicidal ideation Skin exam: PRESENT: dry, wound vac on right thigh wound, sacral regions of pressure ulcer Murmur grade: 3 Results Laboratory Results: 03/18/18 09:15 03/18/18 14:03 03/21/18 16:10 Catheter Tip - Picc Line Catheter Tip Culture - Final NO GROWTH 3 DAYS Impressions: Chest X-Ray 03/07/18 16:04 IMPRESSION: HEART ENLARGED WITHOUT FAILURE. NO OTHER SIGNIFICANT RADIOGRAPHIC FINDING IN THE CHEST. Head CT 03/08/18 00:00 IMPRESSION: 1. No acute intracranial finding 2. Moderate cerebral atrophy and intracranial findings suggesting chronic microvascular disease. TECHNICAL DOCUMENTATION: Quality ID # 436: Final reports with documentation of one or more dose reduction techniques (e.g., Automated exposure control, adjustment of the mA and/or kV according to patient size, use of iterative reconstruction technique) 2010 [employer]- All Rights Reserved Knee X-Ray 03/09/18 00:00 IMPRESSION: Patellofemoral degenerative changes. Assessment & Plan - Diagnosis (1) Sepsis Qualifiers: Sepsis type: sepsis due to unspecified organism Qualified Code(s): A41.9 - Sepsis, unspecified organism Is this a current diagnosis for this admission?: Yes 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, on chronic dialysis Is this a current diagnosis for this admission?: Yes (10) Anemia due to chronic disease treated with erythropoietin Is this a current diagnosis for this admission?: Yes (11) Hypertension Qualifiers: Hypertension type: essential hypertension Qualified Code(s): I10 - Essential (primary) hypertension Is this a current diagnosis for this admission?: Yes (12) Clostridium difficile diarrhea Is this a current diagnosis for this admission?: Yes - Time Time Spent with patient: 25-34 minutes Medications reviewed and adjusted accordingly: Yes Anticipated discharge: Home with Homehealth Within: within 48 hours - Inpatient Certification Based on my medical assessment, after consideration of the patient's comorbidities, presenting symptoms, or acuity I expect that the services needed warrant INPATIENT care.: Yes I certify that my determination is in accordance with my understanding of Medicare's requirements for reasonable and necessary INPATIENT services [42 CFR 412.3e].: Yes Medical Necessity: Need Close Monitoring Due to Risk of Patient Decompensation, Need For Continuous Telemetry Monitoring, Risk of Complication if Not Cared For in Hospital Post Hospital Care: D/C Senior Partner Documentation - Plan Summary Plan Summary: Her recent chemistry continue to show ESRD with electrolyte derangement. I will put in for [employer]ENT services including Visiting, PCS, PT/OT, and social media specialist services upon discharge. Continue supportive service.
--- NOTE | 2018-03-25 22:22 | PDOC CONSULTATION ---
Consultation Consult Date: 03/25/18 Consult reason:: need of PEG History of Present Illness Admission Date/PCP: 03/07/18 21:13 KYLER SHANNON MD History of Present Illness: NANCY BIRMINGHAM is a 83 year old female with multiple medical issues, including decreased mental status, ESRD on PD, coagulopathy, brain atrophy, whose family is requesting placement of a PEG for nutrition purposes. The patient is not responsive during the conversation with her two sons and does not wake up after verbal or physical stimuli. Past Medical History Cardiac Medical History: Reports: Atrial Fibrillation, Congestive Heart Failure , Coronary Artery Disease, Myocardial Infarction - 1994, Hyperlipidema, Hypertension - MEDS, Peripheral Vascular Disease Pulmonary Medical History: Reports: Asthma - LAST ATTACK 3MO, Sleep Apnea Neurological Medical History: Reports: Seizures Endocrine Medical History: Reports: Diabetes Mellitus Type 2, Hypothyroidism Renal/ Medical History: Reports: End Stage Renal Disease, Nephrolithiasis, Other - Calciphylaxis GI Medical History: Reports: Gastroesophageal Reflux Disease, Hiatal Hernia, Other - Irritable bowel syndrome Denies: Hepatitis Musculoskeltal Medical History: Reports: Arthritis, Fibromyalgia, Gout, Other - Osteoporosis Psychiatric Medical History: Denies: Depression Hematology: Reports: Anemia Denies: Sickle Cell Disease Past Surgical History Past Surgical History: Reports: Appendectomy, Hysterectomy, Internal Defibrillator, Pacemaker, Other - AV node ablation, Denies: Amputation, Mastectomy Social History Lives with: Family Smoking Status: Never Smoker Frequency of Alcohol Use: None Hx Recreational Drug Use: No Hx Prescription Drug Abuse: No - Advance Directive Resuscitation Status: Full Code Family History Family History: Reviewed & Not Pertinent Parental Family History Reviewed: No Children Family History Reviewed: No Sibling(s) Family History Reviewed.: No Medication/Allergy Home Medications: Allopurinol [Zyloprim 100 mg Tablet] 100 mg PO DAILY 03/08/18 Epoetin Perfecto [Procrit Inj 40,000 Unit/1 Ml Vial (Esrd-Subq)] 40,000 unit SUBCUT ASDIR PRN 03/08/18 Fentanyl [Duragesic 100 Mcg/Hr Transdermal Patch] 1 patch TD Q3D 03/08/18 Furosemide [Lasix 80 mg Tablet] 80 mg PO QAM 03/08/18 Hydromorphone HCl [Dilaudid 2 mg Tablet] 4 mg PO Q2HP PRN 03/08/18 Lactulose [Constulose 10 gm/15 mL Oral Solution] 20 gm PO DAILYP PRN 03/08/18 Lidocaine [Lidoderm 5% (700 mg) Transdermal Patch] 2 patch TP DAILY MDD ONE FOR EACH HIP 03/08/18 Magnesium Oxide [Mag-Ox 400 mg Tablet] 400 mg PO DAILY 03/08/18 Megestrol Acetate 200 mg PO DAILY 03/08/18 Metoprolol Tartrate [Lopressor 25 mg Tablet] 12.5 mg PO Q12 03/08/18 Olopatadine HCl [Patanol 0.1% Oph Soln 5 Ml Bottle] 1 drop OU BID 03/08/18 Potassium Chloride [Kaon-Cl 20 Meq/15 Ml Udcup] 40 meq PO DAILY MDD FROM [facility] 03/08/18 Sodium Thiosulfate 12.5 Gm In Ns 50 Ml 12.5 gm IV TUTHFR@1000 03/08/18 Warfarin Sodium [Coumadin 1 mg Tablet] 2 mg PO DAILY MDD FROM [facility] 01/29/1803/08 Allergies/Adverse Reactions: clindamycin [Clindamycin] Allergy (Verified 03/27/17 16:25) codeine [Codeine] Allergy (Verified 03/27/17 16:25) diltiazem HCl [From Cardizem] Allergy (Verified 03/27/17 16:25) Penicillins Allergy (Verified 03/27/17 16:25) Sulfa (Sulfonamide Antibiotics) Allergy (Verified 03/27/17 16:25) vancomycin Allergy (Verified 03/13/18 11:06) Hives Physical Exam Vital Signs: Temp Pulse Resp BP Pulse Ox 97.8 F 70 16 124/83 100 03/25/18 20:00 03/25/18 20:00 03/25/18 20:00 03/25/18 20:00 03/25/18 20:00 Intake & Output 03/24/18 03/25/18 03/26/18 06:59 06:59 06:59 Intake Total 2737 5150 3050 Output Total 2300 6600 3200 Balance 019 -5420 -150 Weight 70 kg 75.4 kg 72.1 kg General appearance: PRESENT: other - unresponsive, breathin spontanelously Head exam: PRESENT: atraumatic Mouth exam: PRESENT: neck supple Respiratory exam: PRESENT: clear to auscultation milana Cardiovascular exam: PRESENT: RRR GI/Abdominal exam: PRESENT: soft, other - peritoneal dyalisis catheter in the lower abdomen Neurological exam: PRESENT: other - patient with severely depressed sensorium, not arousable Skin exam: PRESENT: warm Results Laboratory Results: 03/18/18 09:15 03/25/18 17:15 03/25/18 03/25/18 15:46 17:15 Sodium Cancelled 139.7 Potassium Cancelled 5.3 H Chloride Cancelled 102 Carbon Dioxide Cancelled 19 L Anion Gap Cancelled 19 BUN Cancelled 49 H Creatinine Cancelled 7.58 H Est GFR ( Amer) Cancelled 6 L Est GFR (Non-Af Amer) Cancelled 5 L Glucose Cancelled 120 H Calcium Cancelled 9.7 Magnesium Cancelled 2.7 H 03/21/18 16:10 Catheter Tip - Picc Line Catheter Tip Culture - Final NO GROWTH 3 DAYS Impressions: Chest X-Ray 03/07/18 16:04 IMPRESSION: HEART ENLARGED WITHOUT FAILURE. NO OTHER SIGNIFICANT RADIOGRAPHIC FINDING IN THE CHEST. Head CT 03/08/18 00:00 IMPRESSION: 1. No acute intracranial finding 2. Moderate cerebral atrophy and intracranial findings suggesting chronic microvascular disease. TECHNICAL DOCUMENTATION: Quality ID # 436: Final reports with documentation of one or more dose reduction techniques (e.g., Automated exposure control, adjustment of the mA and/or kV according to patient size, use of iterative reconstruction technique) 2010 [employer]- All Rights Reserved Knee X-Ray 03/09/18 00:00 IMPRESSION: Patellofemoral degenerative changes. Assessment & Plan - Diagnosis (1) Coma Qualifiers: Coma depth: Reva coma 3-8 Is this a current diagnosis for this admission?: Yes - Plan Summary Plan Summary: A/ Patient with severely depressed mental status, not arousable, yet breathing spontaneously Currently, she is on peritoneal dialysis which precludes any intrabdominal intervention due to the real risk of contamination and peritonitis My opinion is the patient is at a terminal stage and she is not candidate for any intervention; rather, I would favor hospice care as her expectancy of life is less than 6 months. P/ No intervention planned on this patient for both technical and ethical reasons ( force feeding this patient will not prolong her life or improve her quality of life) and strong consideration should be given to withdraw all forms of treatment and to make her last days of life comfortable.\ I will sign off. Please, call me with questions.
[2018-03-26] MEDS: PHARMACY COMMUNICATION ORDER MC SCH (00:23)
[2018-03-26] MEDS: HYDROMORPHONE HCL INJ/PF 2 MG/ML AMPULE IV PRN ×7 (00:25→20:49)
[2018-03-26] MEDS: SEVELAMER HCL 800 MG TABLET PO SCH ×3 (09:13→17:51)
[2018-03-26] MEDS: FAMOTIDINE INJ/PF 20 MG/2 ML SDV IV SCH (09:19)
[2018-03-26] MEDS: OLOPATADINE HCL 0.1% OPH SOLN 5 ML OU SCH ×2 (09:19→17:51)
[2018-03-26] MEDS: LIDOCAINE 5% (700 MG) TRANSDERMAL ADH..PATCH TP SCH (09:19)
[2018-03-26] MEDS: MEGESTROL ACETATE SUSP 400 MG/10 ML UDCUP PO SCH (10:16)
[2018-03-26] MEDS: FUROSEMIDE 80 MG TABLET PO SCH (10:16)
[2018-03-26] MEDS: MAGNESIUM OXIDE 400 MG TABLET PO SCH (10:16)
[2018-03-26] MEDS: ALLOPURINOL 100 MG TABLET PO SCH (10:16)
[2018-03-26] MEDS: SILVER SULFADIAZINE 1% CREAM 400 GM TP SCH ×4 (10:17→21:15)
[2018-03-26] MEDS: POTASSIUM CHLORIDE 20 MEQ/15 ML UDCUP PO SCH (10:17)
[2018-03-26] MEDS: METOPROLOL TARTRATE 25 MG TABLET PO SCH ×2 (11:49→21:13)
[2018-03-26] MEDS: FENTANYL 100 MCG/HR PATCH.TD72 TD SCH (13:41)
--- NOTE | 2018-03-26 19:28 | PDOC PROGRESS REPORT ---
Subjective Progress Note for:: 03/26/18 Subjective:: Patient remain comfortable in bed at the time of my evaluation this evening. Surgical consult input regarding PEG tube placement request appreciated and agreed with recommendations. I had extensive discussion with children and patient at bedside regarding best disposition arrangement. Presently family insist on home health service placement. Family declined palliative or hospice placement. Reason For Visit: SEPSIS Physical Exam Vital Signs: Temp Pulse Resp BP Pulse Ox 98.3 F 70 15 124/84 97 03/26/18 03:51 03/26/18 14:00 03/26/18 03:51 03/26/18 12:16 03/26/18 09:06 Intake & Output 03/25/18 03/26/18 03/27/18 06:59 06:59 06:59 Intake Total 5150 5050 1150 Output Total 6600 5800 1400 Balance -1450 -750 -250 Weight 75.4 kg 70.5 kg 73.7 kg Physical Exam: General appearance: PRESENT: no acute distress, chronically ill looking Head exam: PRESENT: atraumatic, normocephalic Eye exam: PRESENT: conjunctiva pink ABSENT: scleral icterus Respiratory exam: PRESENT: clear to auscultation milana, decreased breath sounds - at lung bases Cardiovascular exam: PRESENT: RRR, systolic murmur. ABSENT: diastolic murmur, rubs Murmur grade: 3 Vascular exam: ABSENT: pallor GI/Abdominal exam: PRESENT: normal bowel sounds, soft. Peritoneal dialysis site dressing is satisfactory and dry. ABSENT: mass, rebound, tenderness Extremities exam: ABSENT: pedal edema Musculoskeletal exam: PRESENT: deformity - related to multiple joint involvement with arthritis, tenderness - multiple sports tenderness Neurological exam: PRESENT: alert, awake - and appropriate in simple responses Psychiatric exam: PRESENT: appropriate affect but minimally verbal contribution to discussion. Skin exam: PRESENT: dry, wound vac on right thigh wound, sacral regions of pressure ulcer Murmur grade: 3 Results Laboratory Results: 03/18/18 09:15 03/25/18 17:15 Impressions: Chest X-Ray 03/07/18 16:04 IMPRESSION: HEART ENLARGED WITHOUT FAILURE. NO OTHER SIGNIFICANT RADIOGRAPHIC FINDING IN THE CHEST. Head CT 03/08/18 00:00 IMPRESSION: 1. No acute intracranial finding 2. Moderate cerebral atrophy and intracranial findings suggesting chronic microvascular disease. TECHNICAL DOCUMENTATION: Quality ID # 436: Final reports with documentation of one or more dose reduction techniques (e.g., Automated exposure control, adjustment of the mA and/or kV according to patient size, use of iterative reconstruction technique) 2010 [employer]- All Rights Reserved Knee X-Ray 03/09/18 00:00 IMPRESSION: Patellofemoral degenerative changes. Assessment & Plan - Diagnosis (1) Sepsis Qualifiers: Sepsis type: sepsis due to unspecified organism Qualified Code(s): A41.9 - Sepsis, unspecified organism Is this a current diagnosis for this admission?: Yes 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, on chronic dialysis Is this a current diagnosis for this admission?: Yes (10) Anemia due to chronic disease treated with erythropoietin Is this a current diagnosis for this admission?: Yes (11) Hypertension Qualifiers: Hypertension type: essential hypertension Qualified Code(s): I10 - Essential (primary) hypertension Is this a current diagnosis for this admission?: Yes (12) Clostridium difficile diarrhea Is this a current diagnosis for this admission?: Yes - Time Time Spent with patient: 25-34 minutes Medications reviewed and adjusted accordingly: Yes Anticipated discharge: Home with Homehealth Within: within 24 hours - Inpatient Certification Based on my medical assessment, after consideration of the patient's comorbidities, presenting symptoms, or acuity I expect that the services needed warrant INPATIENT care.: Yes I certify that my determination is in accordance with my understanding of Medicare's requirements for reasonable and necessary INPATIENT services [42 CFR 412.3e].: Yes Medical Necessity: Need Close Monitoring Due to Risk of Patient Decompensation, Need For Continuous Telemetry Monitoring, Risk of Complication if Not Cared For in Hospital Post Hospital Care: D/C Index Clerk Documentation - Plan Summary Plan Summary: We will continue efforts at transitioning patient to home tomorrow. I will request for wound vac device for her wound management at home.
[2018-03-27] MEDS: PHARMACY COMMUNICATION ORDER MC SCH (00:03)
[2018-03-27] MEDS: SEVELAMER HCL 800 MG TABLET PO SCH ×3 (09:14→17:44)
[2018-03-27] MEDS: SILVER SULFADIAZINE 1% CREAM 400 GM TP SCH ×3 (09:15→17:44)
[2018-03-27] MEDS: MAGNESIUM OXIDE 400 MG TABLET PO SCH (09:38)
[2018-03-27] MEDS: POTASSIUM CHLORIDE 20 MEQ/15 ML UDCUP PO SCH (09:38)
[2018-03-27] MEDS: HYDROMORPHONE HCL INJ/PF 2 MG/ML AMPULE IV PRN ×5 (09:51→22:02)
[2018-03-27] MEDS: FAMOTIDINE INJ/PF 20 MG/2 ML SDV IV SCH (09:51)
[2018-03-27] MEDS: FUROSEMIDE 80 MG TABLET PO SCH (11:37)
[2018-03-27] MEDS: METOPROLOL TARTRATE 25 MG TABLET PO SCH ×2 (11:38→22:04)
[2018-03-27] MEDS: ALLOPURINOL 100 MG TABLET PO SCH (11:38)
[2018-03-27] MEDS: MEGESTROL ACETATE SUSP 400 MG/10 ML UDCUP PO SCH (11:38)
[2018-03-27] MEDS: LIDOCAINE 5% (700 MG) TRANSDERMAL ADH..PATCH TP SCH (15:15)
[2018-03-27] MEDS: OLOPATADINE HCL 0.1% OPH SOLN 5 ML OU SCH ×2 (15:16→17:44)
[2018-03-27] MEDS ORDERED: HYDROMORPHONE HCL 2 MG TABLET PO PRN ×3 (18:57→18:58)
[2018-03-27] MEDS ORDERED: HYDROMORPHONE HCL INJ/PF 2 MG/ML AMPULE IV PRN ×2 (19:10)
--- NOTE | 2018-03-27 19:38 | PDOC DISCHARGE SUMMARY ---
General - Admit/Disc Date/PCP Admission Date/Primary Care Provider: 03/07/18 21:13 KYLER SHANNON MD Discharge Date: 03/27/18 - Discharge Diagnosis (1) Sepsis Is this a current diagnosis for this admission?: Yes 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, on chronic dialysis Is this a current diagnosis for this admission?: Yes (10) Anemia due to chronic disease treated with erythropoietin Is this a current diagnosis for this admission?: Yes (11) Hypertension Is this a current diagnosis for this admission?: Yes (12) Clostridium difficile diarrhea Is this a current diagnosis for this admission?: Yes - Additional Information Resuscitation Status: Full Code Prescriptions: Fentanyl [Duragesic 100 Mcg/Hr Transdermal Patch] 1 patch TD Q3D #10 patch.td72 Hydromorphone HCl [Dilaudid 2 mg Tablet] 2 mg PO Q2HP PRN #90 tablet PRN Reason: For Pain Silver Sulfadiazine [Silvadene 1% Cream 400 gm] 1 applic TP QID #1 jar Home Medications: Allopurinol [Zyloprim 100 mg Tablet] 100 mg PO DAILY 03/08/18 Epoetin Perfecto [Procrit Inj 40,000 Unit/1 ml Vial (Renal)] 40,000 unit SUBCUT ASDIR PRN 03/08/18 Furosemide [Lasix 80 mg Tablet] 80 mg PO QAM 03/08/18 Lactulose [Constulose 10 gm/15 mL Oral Solution] 20 gm PO DAILYP PRN 03/08/18 Lidocaine [Lidoderm 5% (700 mg) Transdermal Patch] 2 patch TP DAILY MDD ONE FOR EACH HIP 03/08/18 Magnesium Oxide [Mag-Ox 400 mg Tablet] 400 mg PO DAILY 03/08/18 Megestrol Acetate 200 mg PO DAILY 03/08/18 Metoprolol Tartrate [Lopressor 25 mg Tablet] 12.5 mg PO Q12 03/08/18 Olopatadine HCl [Patanol 0.1% Oph Soln 5 ml] 1 drop OU BID 03/08/18 Potassium Chloride [Kaon-Cl 20 Meq/15 ml Udcup] 40 meq PO DAILY MDD FROM [facility] 03/08/18 Fentanyl [Duragesic 100 Mcg/Hr Transdermal Patch] 1 patch TD Q3D #10 patch.td72 03/27/18 Hydromorphone HCl [Dilaudid 2 mg Tablet] 2 mg PO Q2HP PRN #90 tablet 03/27/18 Silver Sulfadiazine [Silvadene 1% Cream 400 gm] 1 applic TP QID #1 jar 03/27/18 History of Present Illness History of Present Illness: NANCY BIRMINGHAM is a 83 year old female who presented to the ED with complain of fatigue, decreased appetite, and cloudy return peritoneal fluid. Due to apparent cloudiness to the peritoneal fluid she was directed from her dialysis center to present to the ED for further evaluation. Her fluid analysis revealed WBC in excess of 19,000 and she was diagnosed with peritonitis. Her initial CBC revealed WBC in excess of 18.3 Other expressed concern upon presentation was multiple ulcer lesions on her right thigh and sacral buttock region. Patient has history of Calciphylaxis among her other morbidities. She was advised hospitalization for further evaluation and management. her morbidities include ESRD on peritoneal dialysis, chronic trial fibrillation, Diabetes mellitus, Hypertension, CHF, CAD, s/p pacemaker/defibrillator implant, and chronic pain syndrome. Hospital Course Hospital Course: She was initially managed with Vancomycin and gentamycin for peritonitis. She was eventually maintained on Vancomycin via Peritoneal dialysis. Her blood and peritoneal fluid cultures did revealed E. Faecalis. Her wound culture revealed muiltiple organisms including E. faecalis, E. Coli, Proteus Mirabilis, Pseudomonas Aeruginosa all adequately covered with IV Zosyn and Vancomycin via Peritoneal dialysis. Due to echocardiogram findings suggestive of severe mitral valve regurgitation and inadequate assessment for vegetation, her case was treated as possible endocarditis. Her repeat blood and peritoneal cultures as well as PICC line catheter culture were no growth after appropriate incubation period. Her hospital stay was complicated by issue of excessive anticoagulation state with elevated INR and tarry stool. She was transfused FFP and discontinuation of Coumadin usage. She received appropriate doses of sodium thiosulfate for management of her calciphylaxis. Her right thigh lesion was debrided due to purulent drainage and she is currently on wound vac management. Her pain was managed with scaling IV Hydromorphone. She will be discharged home on Fentanyl patch and oral Dilaudid for chronic pain management. Family declined recommended palliative or hospice program because they desire continued peritoneal dialysis therapy for patient at home. She will be discharged home with Home health services including visiting nurse, PCS, PT/OT and bilingual social worker service as per family request. I had several meeting with the family regarding post discharge care planning and expectations. Her overall prognosis remain poor with less than 6 months life expectancy. Physical Exam Vital Signs: Temp Pulse Resp BP Pulse Ox 98.9 F 69 14 101/56 L 99 03/27/18 00:07 03/27/18 17:45 03/27/18 00:07 03/27/18 17:45 03/27/18 00:07 Intake & Output 03/26/18 03/27/18 03/28/18 06:59 06:59 06:59 Intake Total 5050 4250 2050 Output Total 5800 5300 1800 Balance -750 -1050 250 Weight 70.5 kg 75.1 kg 68.4 kg Physical Exam: General appearance: PRESENT: no acute distress, chronically ill looking Head exam: PRESENT: atraumatic, normocephalic Eye exam: PRESENT: conjunctiva pink ABSENT: scleral icterus Respiratory exam: PRESENT: clear to auscultation milana, decreased breath sounds - at lung bases Cardiovascular exam: PRESENT: RRR, systolic murmur. ABSENT: diastolic murmur, rubs Murmur grade: 3 Vascular exam: ABSENT: pallor GI/Abdominal exam: PRESENT: normal bowel sounds, soft. Peritoneal dialysis site dressing is satisfactory and dry. ABSENT: mass, rebound, tenderness Extremities exam: ABSENT: pedal edema Musculoskeletal exam: PRESENT: deformity - related to multiple joint involvement with arthritis, tenderness - multiple sports tenderness Neurological exam: PRESENT: alert, awake - and appropriate in simple responses Psychiatric exam: PRESENT: appropriate affect but minimally verbal contribution to discussion. Skin exam: PRESENT: dry, right thigh wound with wet to dry dressing, sacral regions of pressure ulcer Murmur grade: 3 Results Laboratory Results: 03/18/18 09:15 03/25/18 17:15 Impressions: Chest X-Ray 03/07/18 16:04 IMPRESSION: HEART ENLARGED WITHOUT FAILURE. NO OTHER SIGNIFICANT RADIOGRAPHIC FINDING IN THE CHEST. Head CT 03/08/18 00:00 IMPRESSION: 1. No acute intracranial finding 2. Moderate cerebral atrophy and intracranial findings suggesting chronic microvascular disease. TECHNICAL DOCUMENTATION: Quality ID # [id number]: Final reports with documentation of one or more dose reduction techniques (e.g., Automated exposure control, adjustment of the mA and/or kV according to patient size, use of iterative reconstruction technique) 2010 [employer]- All Rights Reserved Knee X-Ray 03/09/18 00:00 IMPRESSION: Patellofemoral degenerative changes. Qualifiers - * PATIENT BEING DISCHARGED WITH ANY OF THE FOLLOWING DIAGNOSIS: No Plan Discharge Plan: Discharge home with home health agency services and wound vac for right thigh wound management. Time Spent: Greater than 30 Minutes - on post acute care coordination.
[2018-03-28] MEDS: HYDROMORPHONE HCL INJ/PF 2 MG/ML AMPULE IV PRN ×4 (01:16→11:46)
[2018-03-28] MEDS: PHARMACY COMMUNICATION ORDER MC SCH (02:07)
[2018-03-28] MEDS: SILVER SULFADIAZINE 1% CREAM 400 GM TP SCH ×2 (02:07→09:46)
[2018-03-28] MEDS: SEVELAMER HCL 800 MG TABLET PO SCH (08:25)
[2018-03-28] MEDS: METOPROLOL TARTRATE 25 MG TABLET PO SCH (09:45)
[2018-03-28] MEDS: POTASSIUM CHLORIDE 20 MEQ/15 ML UDCUP PO SCH (09:45)
[2018-03-28] MEDS: FUROSEMIDE 80 MG TABLET PO SCH (09:45)
[2018-03-28] MEDS: MAGNESIUM OXIDE 400 MG TABLET PO SCH (09:46)
[2018-03-28] MEDS: ALLOPURINOL 100 MG TABLET PO SCH (09:46)
[2018-03-28] MEDS: FAMOTIDINE INJ/PF 20 MG/2 ML SDV IV SCH (09:54)
[2018-03-28] MEDS: OLOPATADINE HCL 0.1% OPH SOLN 5 ML OU SCH (09:55)
[2018-03-28] MEDS: MEGESTROL ACETATE SUSP 400 MG/10 ML UDCUP PO SCH (09:55)
[2018-03-28] MEDS: LIDOCAINE 5% (700 MG) TRANSDERMAL ADH..PATCH TP SCH (12:12)
[2018-03-28 12:29] VITALS: BP 131/68
== END 2018-03-28 13:01 | disposition home health service (06) | DRG 853 ==
LOC: ER 15:52 → EH 21:13 → 3S 03-08 02:08 → 3W 03-15 06:05
PROVIDERS: ADMIT Family Medicine; ATTEND Internal Medicine Geriatric Medicine
PROC: 3E0F73Z Introduction of Anti-inflammatory into Respiratory Tract, Via Natural or Artificial Opening (ICD-10-PCS; 2018-03-08)
PROC: 30233L1 Transfusion of Nonautologous Fresh Plasma into Peripheral Vein, Percutaneous Approach (ICD-10-PCS; 2018-03-08)
PROC: 30233N1 Transfusion of Nonautologous Red Blood Cells into Peripheral Vein, Percutaneous Approach (ICD-10-PCS; 2018-03-09)
PROC: 30233L1 Transfusion of Nonautologous Fresh Plasma into Peripheral Vein, Percutaneous Approach (ICD-10-PCS; 2018-03-11)
PROC: 0JBL0ZZ Excision of Right Upper Leg Subcutaneous Tissue and Fascia, Open Approach (ICD-10-PCS; principal; 2018-03-11 18:30)
PROC: 30233N1 Transfusion of Nonautologous Red Blood Cells into Peripheral Vein, Percutaneous Approach (ICD-10-PCS; 2018-03-12)
DX: A41.9 Sepsis, unspecified organism (principal); N18.6 End stage renal disease; K65.0 Generalized (acute) peritonitis; A04.72 Enterocolitis due to Clostridium difficile, not specified as recurrent; I13.2 Hypertensive heart and chronic kidney disease with heart failure and with stage 5 chronic kidney disease, or end stage renal disease; I50.22 Chronic systolic (congestive) heart failure; K62.5 Hemorrhage of anus and rectum; I48.2 Chronic atrial fibrillation; M25.561 Pain in right knee; E83.59 Other disorders of calcium metabolism; Z99.2 Dependence on renal dialysis; E11.22 Type 2 diabetes mellitus with diabetic chronic kidney disease; I25.10 Atherosclerotic heart disease of native coronary artery without angina pectoris; E78.00 Pure hypercholesterolemia, unspecified; J45.909 Unspecified asthma, uncomplicated; K21.9 Gastro-esophageal reflux disease without esophagitis; K44.9 Diaphragmatic hernia without obstruction or gangrene; M19.90 Unspecified osteoarthritis, unspecified site; E11.51 Type 2 diabetes mellitus with diabetic peripheral angiopathy without gangrene; G47.30 Sleep apnea, unspecified; G40.909 Epilepsy, unspecified, not intractable, without status epilepticus; E03.9 Hypothyroidism, unspecified; K58.9 Irritable bowel syndrome, unspecified; M81.0 Age-related osteoporosis without current pathological fracture; D63.1 Anemia in chronic kidney disease; G31.9 Degenerative disease of nervous system, unspecified; R40.2430 Glasgow coma scale score 3-8, unspecified time; M79.7 Fibromyalgia; M10.9 Gout, unspecified; G89.4 Chronic pain syndrome; S71.101A Unspecified open wound, right thigh, initial encounter; B96.20 Unspecified Escherichia coli [E. coli] as the cause of diseases classified elsewhere; B96.5 Pseudomonas (aeruginosa) (mallei) (pseudomallei) as the cause of diseases classified elsewhere; B96.4 Proteus (mirabilis) (morganii) as the cause of diseases classified elsewhere; X58.XXXA Exposure to other specified factors, initial encounter; L89.159 Pressure ulcer of sacral region, unspecified stage; I34.0 Nonrheumatic mitral (valve) insufficiency; I25.2 Old myocardial infarction; Z95.1 Presence of aortocoronary bypass graft; Z95.0 Presence of cardiac pacemaker; Z90.710 Acquired absence of both cervix and uterus; Z79.899 Other long term (current) drug therapy; Z87.310 Personal history of (healed) osteoporosis fracture; Z79.01 Long term (current) use of anticoagulants; Z88.6 Allergy status to analgesic agent; Z88.3 Allergy status to other anti-infective agents; Z88.0 Allergy status to penicillin; Z88.2 Allergy status to sulfonamides; Z88.8 Allergy status to other drugs, medicaments and biological substances; Z82.49 Family history of ischemic heart disease and other diseases of the circulatory system; Z84.1 Family history of disorders of kidney and ureter; Z83.3 Family history of diabetes mellitus
CPT/HCPCS: 01250; 36415; 36430; 36592; 70450; 71045; 71250; 74176; 80048; 80053; 80170; 80202; 82272; 82962; 83605; 83735; 83970; 84100; 84132; 85025; 85610; 85730; 86850; 86900; 86901; 86920; 87040; 87070; 87075; 87077; 87186; 87205; 87493; 88305; 89050; 90945; 90947; 93005; 93010; 93306; 96365; 96366; 96367; 96368; 96375; 99285; J1170; J1200; J1580; J1642; J1644; J2250; J2405; J2543; J2704; J3010; J3370; J3420; J3490; J7030; P9016; P9017; Q4081; S0028; S0119